=== PATIENT | female | born 1965 | race African-American/Black ===

== ENCOUNTER 2020-07-31 16:52 | Outpatient (REF) | payer MEDICAID, SELFPAY ==
[2020-07-31 18:05] LABS: MANUAL DIFF FLAG NO
[2020-07-31 18:06] LABS: Basophils Percent Auto 0.6 % (0-2); Eosinophils Absolute Auto 0.1 X10*3/uL (0.0-0.4); Eosinophils Percent Auto 1.1 % (0-4); Hematocrit 41.6 % (37-47); Hemoglobin 13.2 g/dl (12.0-16.0); Imm Gran Abs Auto 0.01 X10*3/uL (0.00-0.03); Imm Gran Pct Auto 0.2 % (0.0-0.4); Lymphocytes Absolute Auto 2.5 X10*3/uL (1.2-4.9); Mean Corpuscular HGB Conc 31.7 g/dl (31.0-35.0); Mean Corpuscular Hemoglobin 29.5 pg (27.0-33.0); Mean Corpuscular Volume 92.9 fL (80-98); Mean Platelet Volume 10.4 fL (9.4-12.3); Monocytes Absolute Auto 0.5 X10*3/uL (0.1-1.2); Monocytes Percent Auto 8.9 % (2-11); Neutrophils Absolute Auto 2.3 X10*3/uL (2.0-8.3); Neutrophils Percent Auto 42.2 % (45-73); Platelet Count 300 X10*3/uL (160-400); Red Blood Count 4.48 X10*6/uL (4.20-5.50); Red Cell Distribution Width 13.1 % (11.0-16.0); White Blood Count 5.4 X10*3/uL (4.8-10.8)
[2020-07-31 18:41] LABS: Alanine Aminotransferase 16 U/L (0-31); Albumin Level 4.4 g/dL (3.5-5.0); Alkaline Phosphatase 101 U/L (39-117); Anion Gap 12 (12-20); Aspartate Amino Transferase 18 U/L (5-31); Bilirubin Total 0.8 mg/dL (0.0-1.0); Blood Urea Nitrogen 12 mg/dL (9-16); Calcium 9.7 mg/dL (8.4-10.2); Carbon Dioxide 26 mmol/L (22-29); Chloride 105 mmol/L (96-108); Cholesterol 167 mg/dL; Estimated Glomerular Filt Rate > 60; Glucose Random 90 mg/dL (60-115); Potassium 4.3 mmol/L (3.3-5.1); Sodium 139 mmol/L (135-145); Total Protein 7.7 g/dL (6.5-8.0)
[2020-07-31 19:01] LABS: Free T4 (Free Thyroxine) 0.88 ng/dL (0.71-1.85); Thyroid Stimulating Hormone 1.37 uIU/mL (0.32-4.0)
== END 2020-07-31 16:53 | disposition home or self-care (01) ==
LOC: HO.LAB 16:52
PROVIDERS: PCP Internal Medicine; Visit Provider Internal Medicine
DX: R63.5 Abnormal weight gain (principal); E78.00 Pure hypercholesterolemia, unspecified; R30.0 Dysuria
CPT/HCPCS: 36415; 80053; 82465; 84439; 84443; 85025

== ENCOUNTER 2020-09-06 14:03 | Outpatient (REF) | payer MEDICAID, SELFPAY ==
--- NOTE | ~2020-09-06 | MM_ITS ---
EXAMINATION: BONE DENSITOMETRY CLINICAL INDICATION: Screening for osteoporosis. COMPARISON: This is the patient's baseline examination. TECHNIQUE: Using a [employer] DXA System (software version: 13.1) manufactured by [employer], dual-energy x-ray absorptiometry was performed of the lumbar spine and left hip. The images are of good technical quality. Summary results are attached. FINDINGS: AP SPINE L1-L4: BMD 1.141 g/cm2, Z-score -0.7, T-score -0.3, normal. LEFT FEMUR, NECK: BMD 1.133 g/cm2, Z-score 0.4, T-score 0.7, normal. LEFT FEMUR, TOTAL: BMD 1.321 g/cm2, Z-score 1.8, T-score 2.5, normal. IDENTIFIED RISK FACTORS: Early menopause, secondary osteoporosis. HISTORY OF FRACTURE: None listed. MEDICATIONS: Calcium supplements or multivitamin, vitamin D. MM/XR DEXA axial skeleton IMPRESSION: 1. DIAGNOSIS: Normal bone density based on the lowest T-score value of -0.3 in the lumbar spine applying World Health Organization criteria. 2. 10-YEAR FRACTURE RISK PREDICTION, FRAX: Major osteoporotic fracture (clinical spine, forearm, hip or shoulder) 2.2%. Hip fracture 0.0%. 3. Treatment Recommendations: NOF guidelines recommend consideration for treatment in postmenopausal women and men age 50 and older presenting with the following: -A hip or vertebral (clinical or morphometric) fracture. -T-score less than or equal to -2.5 at the femoral neck or spine after appropriate evaluation to exclude secondary causes. -Low bone mass at the hip or spine and a 10-year fracture probability by FRAX of greater than or equal to 3% for hip fracture or greater than or equal to 20% for major osteoporotic fracture based on the [place] adapted WHO algorithm. 4. Other Recommendations: All treatment decisions require clinical judgment and consideration of individual patient factors, including patient preferences, comorbidities, previous drug use, risk factors not captured in the FRAX model (e.g. frailty, falls, vitamin D deficiency, increased bone turnover, interval significant decline in bone density) and possible under or overestimation of fracture risk by FRAX. FUTURE SCAN RECOMMENDATION: People with diagnosed cases of osteoporosis or at high risk for fracture should have regular bone mineral density tests. For patients eligible for Medicare, routine testing is allowed once every 2 years. The testing frequency can be increased to one year for patients who have rapidly progressing disease, those who are receiving or discontinuing medical therapy to restore bone mass, or have additional risk factors.
--- NOTE | ~2020-09-06 | MM_ITS ---
EXAMINATION: MM BREAST SCREENING DIGITAL TOMOSYNTHESIS, BILATERAL CLINICAL INFORMATION: Screening. Asymptomatic. The lifetime risk of breast cancer based on the Tyrer-Cuzick Model is 4.1%. COMPARISON: Mammography: None TECHNIQUE: Digital breast tomosynthesis is performed in both the craniocaudal and mediolateral oblique views along with computer-aided detection (CAD). Synthesized 2D images are generated from the tomosynthesis. Left exaggerated craniocaudal view performed. FINDINGS: There are scattered areas of fibroglandular density (ACR BI-RADS breast composition Category b). No abnormal dominant masses or suspicious grouping of microcalcifications identified within the left breast. Within the right breast, there are noted to be 3 circumscribed densities upper outer aspect, 1 lying approximately 4 cm from the nipple measuring 8 mm in diameter, 1 measuring 8 mm in diameter approximately 9 cm from the nipple, and 1 likely representing intramammary lymph node measuring 6 mm approximately 10 cm from the nipple. Ultrasound evaluation is recommended. MM/MM tomosynthesis screening BI IMPRESSION: Three circumscribed densities about the upper outer aspect of the right breast for which targeted ultrasound evaluation is recommended. ASSESSMENT: BI-RADS 0: Incomplete - Need Additional Imaging Evaluation RECOMMENDATION: Right breast ultrasound This patient's information was entered into a reminder system with a target due date for their next mammogram.
== END 2020-09-06 14:04 | disposition home or self-care (01) ==
LOC: HO.MAMMO 14:03
PROVIDERS: Visit Provider Internal Medicine
DX: Z12.31 Encounter for screening mammogram for malignant neoplasm of breast (principal); M81.8 Other osteoporosis without current pathological fracture; N95.9 Unspecified menopausal and perimenopausal disorder
CPT/HCPCS: 77063; 77067; 77080

== ENCOUNTER 2020-09-12 13:42 | Outpatient (REF) | payer MEDICAID, SELFPAY ==
--- NOTE | ~2020-09-12 | US_ITS ---
EXAMINATION: US DIAGNOSTIC ULTRASOUND BREAST, RIGHT CLINICAL INFORMATION: Three right breast densities upper outer quadrant. COMPARISON: Mammography of 09/06/2020 TECHNIQUE: Ultrasound of the breast is performed with real-time basurto-scale imaging and color Doppler. FINDINGS: At the 9 o'clock position approximately 9 cm from the nipple, there is a 5 x 4 x 3 mm well-circumscribed hypoechoic lesion with a few regions of hyperechogenicity and some vascularity with the appearance of a probable lymph node. At the 10 o'clock position approximately 4 cm from the nipple, there is a simple-appearing cyst measuring approximately 8 x 7 x 5 mm in size. At the 11 o'clock position approximately 11 cm from nipple, there is a 7 x 7 x 6 mm lymph node. No definite suspicious lesions identified within the upper outer quadrant. Results are discussed with the patient at time of visit. US/US breast RT limited IMPRESSION: Right breast densities upper outer quadrant appear to represent 2 lymph nodes and a simple-appearing cyst. Recommend 12-month followup study to ensure stability. ASSESSMENT: BI-RADS 3: Probably Benign. RECOMMENDATION: Diagnostic mammography at time of next annual exam, due in 12 months. This patient's information was entered into a reminder system with a target due date for their next mammogram.
== END 2020-09-12 13:43 | disposition home or self-care (01) ==
LOC: HO.MAMMO 13:42
PROVIDERS: Visit Provider Internal Medicine
DX: R92.2 Inconclusive mammogram (principal)
CPT/HCPCS: 76642

== ENCOUNTER 2020-10-25 12:41 | Outpatient (REF) | payer MEDICAID, SELFPAY ==
[2020-10-25 16:49] LABS: CT PCR NOT DETECTED (Not Detect.); NG PCR NOT DETECTED (Not Detect.)
[2020-10-26 09:26] LABS: BV Int Neg Control Negative (Negative); BV Int Pos Control Positive (Positive)
[2020-10-27 18:06] LABS: HPV mRNA E6/E7 rflx Not Detected (Not Detected)
== END 2020-10-25 12:42 | disposition home or self-care (01) ==
LOC: HO.LAB 12:41
PROVIDERS: PCP Internal Medicine; Visit Provider Advanced Practice Midwife
DX: Z01.419 Encounter for gynecological examination (general) (routine) without abnormal findings (principal); N89.8 Other specified noninflammatory disorders of vagina; E66.01 Morbid (severe) obesity due to excess calories; Z20.2 Contact with and (suspected) exposure to infections with a predominantly sexual mode of transmission
CPT/HCPCS: 87480; 87491; 87510; 87591; 87624; 87660; 88142

== ENCOUNTER 2020-12-03 10:42 | Outpatient (REF) | payer MEDICAID, SELFPAY | END 2020-12-03 10:43 | disposition home or self-care (01) | LOC: HO.HMGCLDS 10:42 | PROVIDERS: Visit Provider Internal Medicine | DX: Z20.822 Contact with and (suspected) exposure to COVID-19 (principal) | CPT/HCPCS: C9803; U0003; U0005 ==

== ENCOUNTER 2020-12-26 13:36 | Outpatient (REF) | payer MEDICAID, SELFPAY ==
--- NOTE | ~2020-12-26 | CT_ITS ---
EXAMINATION: CT HEAD WITHOUT CONTRAST CLINICAL INFORMATION: New onset headache COMPARISON: None TECHNIQUE: Contiguous axial imaging was performed from the skull base to vertex without intravenous administration of contrast. This CT examination was performed using dose optimization techniques as appropriate, variously including the following: *Automated exposure control *Adjustment of mA and/or kV according to patient size (this includes techniques or standardized protocols for targeted exams where dose is matched to indication/reason for exam; i.e. extremities or head) *Use of iterative reconstruction technique DLP: 785 mGy-cm FINDINGS: There is no evidence of acute intracranial hemorrhage or territorial infarction. No abnormal mass effect or midline shift is seen. Vizcarra to white matter differentiation is well preserved. No extra-axial fluid collections are identified. The ventricles are normal in size. There is no abnormal attenuation within the brain parenchyma. The osseous structures and soft tissues are normal. The mastoid air cells and visualized portions of the paranasal sinuses are well aerated. CT/CT head/brain wo con IMPRESSION: No acute intracranial process seen.
== END 2020-12-26 13:37 | disposition home or self-care (01) ==
LOC: HO.CT 13:36
PROVIDERS: PCP Internal Medicine; Visit Provider Internal Medicine
DX: R51.0 Headache with orthostatic component, not elsewhere classified (principal); Z87.828 Personal history of other (healed) physical injury and trauma
CPT/HCPCS: 70450

== ENCOUNTER 2021-03-20 12:44 | Outpatient (REF) | payer MEDICAID, SELFPAY ==
--- NOTE | ~2021-03-20 | US_ITS ---
EXAMINATION: US DIAGNOSTIC ULTRASOUND BREAST, RIGHT CLINICAL INFORMATION: Short interval follow-up probable benign nodularity right breast noted at new baseline. COMPARISON: Mammography 09/06/2020, targeted right breast ultrasound 09/12/2020. TECHNIQUE: Ultrasound right breast is targeted to the upper and outer quadrants. Grayscale imaging and color Doppler are performed without and with harmonics. FINDINGS: There is no significant changes from prior targeted ultrasound. No suspicious mass or architectural abnormality. No focal duct ectasia. Nodule superficial 9:00 position 9 cm from nipple is stable in size and contour measuring under 1 cm. There is some central echogenicity with central color flow suggesting intramammary node. Probable cyst posterior mid outer right breast is visualized at 9:00 position, previously 10:00 position. This is under 1 cm and similar to prior ultrasound. There are 3 incidental intramammary nodes seen 11:00 position 11 cm from nipple with normal loida architecture, largest measuring 1.0 x 0.6 cm. There is a simple cyst 11:00 position 1 cm from nipple measuring 0.9 x 0.8 cm. This is anechoic with increased through-transmission of sound and no color flow. Results are provided to the patient at time of visit by the technologist. Management plan is for diagnostic mammography in 6 months at time of annual mammography. US/US breast RT limited IMPRESSION: No significant changes from prior targeted ultrasound. ASSESSMENT: BI-RADS 3: Probably Benign RECOMMENDATION: Diagnostic mammography at time of annual bilateral exam, due in 6 months. This patient's information was entered into a reminder system with a target due date for their next mammogram.
== END 2021-03-20 12:45 | disposition home or self-care (01) ==
LOC: HO.MAMMO 12:44
PROVIDERS: PCP Internal Medicine; Visit Provider Internal Medicine
DX: R92.2 Inconclusive mammogram (principal)
CPT/HCPCS: 76642

== ENCOUNTER 2021-06-05 14:36 | Outpatient (REF) | payer MEDICAID, SELFPAY ==
[2021-06-05 14:49] LABS: MANUAL DIFF FLAG NO
[2021-06-05 14:59] LABS: Basophils Percent Auto 0.5 % (0-2); Eosinophils Percent Auto 0.5 % (0-4); Hemoglobin 13.4 g/dl (12.0-16.0); Imm Gran Abs Auto 0.01 X10*3/uL (0.00-0.03); Imm Gran Pct Auto 0.2 % (0.0-0.4); Lymphocytes Absolute Auto 2.5 X10*3/uL (1.2-4.9); Lymphocytes Percent Auto 44.9 % (20-40); Mean Corpuscular HGB Conc 31.9 g/dl (31.0-35.0); Mean Corpuscular Hemoglobin 29.8 pg (27.0-33.0); Mean Corpuscular Volume 93.3 fL (80.0-98.0); Mean Platelet Volume 9.7 fL (9.4-12.3); Monocytes Absolute Auto 0.4 X10*3/uL (0.1-1.2); Monocytes Percent Auto 7.8 % (2-11); Neutrophils Absolute Auto 2.5 x10*3/uL (2.0-8.3); Neutrophils Percent Auto 46.1 % (45-73); Platelet Count 282 X10*3/uL (160-400); Red Cell Distribution Width 13.2 % (11.0-16.0); White Blood Count 5.5 X10*3/uL (4.8-10.8)
[2021-06-05 15:25] LABS: Alanine Aminotransferase 27 U/L (0-31); Albumin Level 4.6 g/dL (3.5-5.0); Alkaline Phosphatase 111 U/L (39-117); Anion Gap 10 (12-20); Aspartate Amino Transferase 26 U/L (5-31); Bilirubin Total 0.5 mg/dL (0.0-1.0); Blood Urea Nitrogen 12 mg/dL (9-16); Carbon Dioxide 29 mmol/L (22-29); Chloride 106 mmol/L (96-108); Estimated Glomerular Filt Rate 54; Glucose Random 89 mg/dL (60-115); Potassium 3.8 mmol/L (3.3-5.1); Sodium 141 mmol/L (135-145)
[2021-06-05 15:42] LABS: Appearance Urine CLEAR; Color Urine YELLOW; Glucose Urine UA NEG (NEG); Leukocyte Esterase Urine 1+ (NEG); Nitrite Urine NEG (NEG); PH 5.5 (5.0-8.0); Urine Blood TRACE (NEG); Urine Ketones NEG (NEG); Urine Protein NEG (NEG-TRACE)
[2021-06-05 15:49] LABS: Bacteria Urine 2+ /LPF
[2021-06-05 15:51] LABS: RBC Urine 0-2 /HPF (0)
== END 2021-06-05 14:37 | disposition home or self-care (01) ==
LOC: HO.LAB 14:36
PROVIDERS: PCP Internal Medicine; Visit Provider Internal Medicine
DX: K21.9 Gastro-esophageal reflux disease without esophagitis (principal); Z87.442 Personal history of urinary calculi
CPT/HCPCS: 36415; 80053; 81001; 85025

== ENCOUNTER 2021-07-03 16:12 | Outpatient (REF) | payer MEDICAID, SELFPAY ==
--- NOTE | ~2021-07-03 | US_ITS ---
EXAMINATION: US RETROPERITONEAL LIMITED (RENAL ONLY) CLINICAL INFORMATION: History of renal stones. COMPARISON: None TECHNIQUE: Real-time imaging of the kidneys. FINDINGS: RIGHT KIDNEY: 10.8 x 4.4 x 5.2 cm (SAG x AP x TRV). The kidney is normal in size, contour, and echogenicity. Renal cortical thickness is normal. No focal parenchymal lesions or hydronephrosis. There are numerous echogenic foci throughout the medullary regions consistent with small calculi. Within the midpole there are 2 large echogenic foci which may represent vascular interfaces or possible 5 mm and 6 mm calculi. LEFT KIDNEY: 12.3 x 6.0 x 5.0 cm (SAG x AP x TRV). The kidney is normal in size, contour, and echogenicity. Renal cortical thickness is normal. No focal parenchymal lesions or hydronephrosis. Numerous small medullary echogenic foci are seen which may be related to calculi or vascular interface. Within the midpole there is a 5 mm echogenic focus with some distal sound shadowing consistent with nonobstructing calculus. Within the lower pole there is an echogenic focus measuring approximately 6 mm in diameter which may represent a nonobstructing calculus. US/US renal BI IMPRESSION: Echogenic foci bilaterally consistent with nephrocalcinosis. No evidence of obstructive uropathy.
== END 2021-07-03 16:13 | disposition home or self-care (01) ==
LOC: HO.US 16:12
PROVIDERS: Visit Provider Internal Medicine
DX: Z87.442 Personal history of urinary calculi (principal)
CPT/HCPCS: 76775

== ENCOUNTER 2021-10-18 12:55 | Outpatient (REF) | payer MEDICAID, SELFPAY ==
--- NOTE | ~2021-10-18 | MM_ITS ---
EXAMINATION: MM DIAGNOSTIC DIGITAL BREAST TOMOSYNTHESIS, BILATERAL CLINICAL INFORMATION: Due for yearly. Follow-up probable benign nodularity right breast. The lifetime risk of breast cancer based on the Tyrer-Cuzick Model is 4%. COMPARISON: Mammography: 09/06/2020; ultrasound right breast 03/20/2021, 09/12/2020. TECHNIQUE: Digital breast tomosynthesis is performed in both the craniocaudal and mediolateral oblique views along with computer-aided detection (CAD). Synthesized 2D images are generated from the tomosynthesis. FINDINGS: There are scattered areas of fibroglandular density (ACR BI-RADS breast composition Category b). Parenchymal pattern is similar to prior studies. There is no developing density or interval mass or architectural abnormality. Benign-appearing nodular asymmetry central outer left breast on CC view and small circumscribed nodules mid upper outer right breast are stable. Small circumscribed nodule anterior outer right breast noted on prior study is decreased to resolved. There are no abnormal calcifications. The axilla and skin contours are unremarkable. Results are provided to the patient at time of visit by the technologist. MM/MM tomosynthesis diagnostic BI IMPRESSION: No mammographic evidence of malignancy. ASSESSMENT: BI-RADS 2: Benign RECOMMENDATION: Routine annual mammography screening. This patient's information was entered into a reminder system with a target due date for their next mammogram.
== END 2021-10-18 12:56 | disposition home or self-care (01) ==
LOC: HO.MAMMO 12:55
PROVIDERS: PCP Internal Medicine; Visit Provider Internal Medicine
DX: R92.8 Other abnormal and inconclusive findings on diagnostic imaging of breast (principal)
CPT/HCPCS: 77062; 77066

== ENCOUNTER 2022-03-19 11:30 | Outpatient (REF) | payer MEDICAID, SELFPAY ==
[2022-03-19 14:16] LABS: Syphilis Screen Nonreactive (Nonreactive)
[2022-03-19 17:12] LABS: CT PCR NOT DETECTED (Not Detect.); NG PCR NOT DETECTED (Not Detect.)
[2022-03-21 09:44] LABS: HBc Num1 0.12 S/CO (0.00-0.79); HIV AB/AG Nonreactive (Nonreactive); HIV Num 1 0.08 S/CO (0.00-0.99); Hepatitis B Core Antibody Nonreactive (Nonreactive); ~HepC Num1 0.11 S/CO (0.00-0.79); ~Hepatitis C Antibody Nonreactive (Nonreactive)
[2022-03-22 05:29] LABS: TS Negative Control Passed; TS Panel A 2; TS Panel B 0; TS Positive Control Passed; TSpotTB Negative (Negative)
== END 2022-03-19 11:31 | disposition home or self-care (01) ==
LOC: HO.LAB 11:30
PROVIDERS: Absent Provider Internal Medicine; PCP Internal Medicine; Visit Provider Advanced Practice Midwife
DX: Z02.1 Encounter for pre-employment examination (principal); Z11.1 Encounter for screening for respiratory tuberculosis; Z11.4 Encounter for screening for human immunodeficiency virus [HIV]; Z20.2 Contact with and (suspected) exposure to infections with a predominantly sexual mode of transmission
CPT/HCPCS: 0353U; 36415; 86481; 86704; 86780; 86803; 87389

== ENCOUNTER 2022-10-21 09:04 | Outpatient (REF) | payer OTHER, SELFPAY | END 2022-10-21 09:05 | disposition home or self-care (01) | LOC: HO.MAMMO 09:04 | PROVIDERS: PCP Internal Medicine; Visit Provider Internal Medicine | DX: Z12.31 Encounter for screening mammogram for malignant neoplasm of breast (principal) | CPT/HCPCS: 77063; 77067 ==

== ENCOUNTER → 2022-10-21 09:15 | Outpatient (BNV) | payer OTHER, SELFPAY | PROVIDERS: PCP Internal Medicine; Visit Provider Radiology Diagnostic Radiology | DX: Z12.31 Encounter for screening mammogram for malignant neoplasm of breast (principal) | CPT/HCPCS: 77063; 77067 ==

== ENCOUNTER 2023-01-14 14:03 | Outpatient (REF) | payer OTHER, SELFPAY ==
--- NOTE | ~2023-01-14 | US_ITS ---
EXAMINATION: US RETROPERITONEAL COMPLETE (RENAL) CLINICAL INFORMATION: Proteinuria. COMPARISON: Renal ultrasound 07/03/2021. TECHNIQUE: Real-time imaging of the kidneys and bladder. FINDINGS: RIGHT KIDNEY: 10.7 x 4.3 x 4.9 cm (SAG x AP x TRV). New focal wedge-shaped scarring in the upper pole. No focal parenchymal lesions or hydronephrosis. 10 mm nonobstructing calculus in the lower kidney. LEFT KIDNEY: 10.6 x 5.5 x 4.0 cm (SAG x AP x TRV). The kidney is normal in size, contour, and echogenicity. Renal cortical thickness is normal. No focal parenchymal lesions or hydronephrosis. Numerous nonobstructing calculi, largest measuring 7 mm in the lower pole. BLADDER: Well distended and normal. Bilateral ureteral jets are demonstrated. Prevoid bladder volume is 221.2 mL. Postvoid bladder volume is 14.4 mL. US/US retroperitoneal comp IMPRESSION: New focal wedge-shaped scarring in the upper pole of the right kidney may relate to sequela of renal infarct/infection/stone disease. Correlate clinically for history of partial nephrectomy. Nonobstructing bilateral renal calculi.
== END 2023-01-14 14:04 | disposition home or self-care (01) ==
LOC: HO.US 14:03
PROVIDERS: PCP Internal Medicine; Visit Provider Internal Medicine
DX: R80.9 Proteinuria, unspecified (principal)
CPT/HCPCS: 76770

== ENCOUNTER 2023-05-25 15:36 | Outpatient (REF) | payer OTHER, SELFPAY | END 2023-05-25 15:37 | disposition home or self-care (01) | LOC: HO.LAB 15:36 | PROVIDERS: PCP Internal Medicine; Visit Provider Urology | DX: N20.0 Calculus of kidney (principal); N39.0 Urinary tract infection, site not specified | CPT/HCPCS: 81003; 99202 ==

== ENCOUNTER 2023-05-25 15:36 | Outpatient (AMB) | payer OTHER, SELFPAY ==
--- NOTE | 2023-05-25 15:47 | A.OFFVIS_ITS ---
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 She states she had lithotripsy done several years ago about 1994. She does get occasional kidney discomfort denies blood in the urine. She has had urinary infections in the past but denies dysuria at this time. I reviewed with the patient kidney ultrasound that resulted January 2023. Bilateral kidney stones and right renal scarring. I have discussed further evaluation with CT abdomen/pelvis without IV contrast. I have discussed at length diet modification to decrease risk of forming more kidney stones. I have discussed low oxalate diet and specific foods to avoid including certain green leafy vegetables, chocalate, nuts, tea, beets, rubarb; low sodium, decreased use of animal protein and the importance of hydration drinking up to 2-2.5 liters of fluids and use of adding lemon to water to increase citrate in the diet. A pamphlet is also provided today. I will start her on vitamin B6 100 mg daily. Urinalysis--2+ leukocytes 1+ blood, urine culture sent. [facility] Medical History Breast density Surgical History H/O lithotripsy Social History Alcohol intake: never Patient Tobacco Use Status: Never used Tobacco Female Reproductive History Menstrual Age of Menarche: 10 Review of Systems Const All systems reviewed & are unremarkable except as noted in HPI and below Reports no additional complaints Eyes Reports no additional complaints ENT Reports no additional complaints Card Denies dyspnea Resp Denies cough and Denies dyspnea GI Reports no additional complaints Reports no additional complaints Musc Reports no additional complaints Skin/Breast Denies rash and Denies unusual bruising Neuro Reports no additional complaints Psych Reports no additional complaints Endo Reports no additional complaints Roshan/Lymph Reports no additional complaints Aller/Immun Reports no additional complaints Physical Exam Const General: cooperative, healthy appearing and no acute distress Orientation/consciousness: patient oriented x3 HEENT Head: Yes normal to inspection, Yes normocephalic and Yes atraumatic Eyes Conjunctivae: conjunctivae normal Neck Neck: Yes normal visual inspection and Yes trachea midline Chest Chest palpation & inspection: normal inspection of the chest Resp Effort & Inspection: normal respiratory effort Cardio Rate: regular rate GI Inspection: Yes normal to inspection Skin General skin exam: no rashes or lesions noted Neuro General: patient oriented x3 Extrem General: No edema Psych Appearance: grossly normal Results AMB Urinalysis, Automated UA Leukoctes 125 Anya/uL Last Edit by Magui Richardsjosefina Richards [facility] on 05/25/23 1 5:56 UA Nitrite Negative Last Edit by [facility] on 05/25/23 15: 56 UA Urobilinogen 0.2 mg/dL Last Edit [facility] on 4 15:56 UA Protein 0 mg/dL Last Edit by [facility] Richards, [facility] on 05/25/23 15:56 UA pH 7.0 Last Edit by [facility] on 05/25/23 15:56 UA Blood 25 Medardo/uL Last Edit by [facility] Richards [facility] on 05/25/23 15:56 UA Specific [place] 1.010 Last Edit by [facility] Richards [facility] on 15:56 UA Ketone Negative Last Edit by [facility] on 05/25/23 15:5 6 UA Bilirubin 0 mg/dL Last Edit by [facility] Richards, [facility] on 05/25/23 15: 56 UA Glucose 0 mg/dL Last Edit by [facility] Richards [facility] on 05/25/23 15:56 Results Reviewed Results Reviewed: Laboratory Last Values Urine pH (Auto) 7.0 05/25/23 15:55 Specific [place] (Auto) 1.010 05/25/23 15:55 Urine Protein (Auto) 0 mg/dL 05/25/23 15:55 Glucose (UA)(Auto) 0 mg/dL 05/25/23 15:55 Urine Ketones (Auto) Negative 05/25/23 15:55 Urine Blood (Auto) 25 Medardo/uL 05/25/23 15:55 Urine Nitrite (Auto) Negative 05/25/23 15:55 Urine Bilirubin (Auto) 0 mg/dL 05/25/23 15:55 Urine Urobilinogen (Auto) 0.2 mg/dL 05/25/23 15:55 Leukocyte Esterase (Auto) 125 Anya/uL 05/25/23 15:55 Assessment & Plan Assessment & Plan (1) UTI (urinary tract infection): Code(s): N39.0 - Urinary tract infection, site not specified Plan CT abdomen and pelvis without IV contrast. Diet discussed to reduce kidney stone Vitamin B6 100 mg daily Orders: Orders AMB Urinalysis Automated Today R33.9 - Retention of urine, unspecified CT abdomen pelvis wo IV con Today N20.0 - Calculus of kidney, N28.89 - Other specified disorders of kidney and ureter Urine Culture Today N39.0 - Urinary tract infection, site not specified Medications: New pyridoxine (vitamin B6) 100 mg PO DAILY 90 days 90 tabs 1RF Patient Instructions: The patient had an opportunity to ask questions regarding treatment plan. All questions were answered. Imaging, Laboratory studies and physical exam results were discussed and reviewed in detail. No major barriers to understanding were identified. The patient expressed understanding and agreement with the above treatment plan. The patient is aware they should contact our office by phone for worsening of their current condition or the appearance of new symptoms. Compliance is encouraged with any medications and followup testing that is ordered. It is a privilege to be allowed the opportunity to participate in the urologic care of your patient. If you have any questions or concerns regarding treatment for the above conditions please do not hesitate to contact me. The office telephone contact is [phone]. This note is constructed in part using voice recognition software. 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 Yours sincerely, Edgar Soto MD Coding Level of Care Code New Pt Level 4 (52402) Diagnoses UTI (urinary tract infection) N39.0
== END 2023-05-25 16:19 | disposition home or self-care (01) ==
PROVIDERS: PCP Internal Medicine; Visit Provider Urology
DX: N39.0 Urinary tract infection, site not specified (principal); R33.9 Retention of urine, unspecified
CPT/HCPCS: 99204

== ENCOUNTER 2023-05-26 11:05 | Outpatient (REF) | payer OTHER, SELFPAY | END 2023-05-26 11:06 | disposition home or self-care (01) | LOC: HO.LAB 11:05 | PROVIDERS: Visit Provider Urology | DX: N39.0 Urinary tract infection, site not specified (principal) | CPT/HCPCS: 87086 ==

== ENCOUNTER 2023-08-05 16:25 | Outpatient (REF) | payer OTHER, SELFPAY ==
--- NOTE | ~2023-08-05 | CT_ITS ---
EXAMINATION: CT ABDOMEN AND PELVIS WITHOUT CONTRAST CLINICAL INFORMATION: Renal calculus. COMPARISON: Renal ultrasound dated 01/14/2023. TECHNIQUE: Multidetector volumetric imaging was performed from the superior aspect of the liver through the pubic symphysis. Sagittal and coronal reformatted images were obtained on the technologist's workstation. This CT examination was performed using dose optimization techniques as appropriate, variously including the following: *Automated exposure control *Adjustment of mA and/or kV according to patient size (this includes techniques or standardized protocols for targeted exams where dose is matched to indication/reason for exam; i.e. extremities or head) *Use of iterative reconstruction technique DLP: 551 mGy-cm FINDINGS: LUNG BASES: The visualized lung bases are unremarkable. LIVER, GALLBLADDER, AND BILIARY TREE: The liver is normal in size, shape, and attenuation. 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 No focal hepatic lesion or biliary ductal dilatation is present. The gallbladder is unremarkable with no evidence of radiopaque gallstones, gallbladder wall thickening, or obvious pericholecystic inflammatory changes. PANCREAS: Unremarkable. SPLEEN: Unremarkable. ADRENAL GLANDS: Unremarkable. KIDNEYS AND URETERS: The kidneys are normal in size, shape, and attenuation. 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 There are extensive bilateral renal calculi. The largest on the right include a 5 mm interpolar calculus and an 8 mm lower pole calculus (5:78). The larger calculi within the left kidney are situated at the upper pole measuring 1.1 cm and at the lower pole measuring 0.9 cm (5:93 and 76). No ureteric calculus is seen, and there is no bilateral hydronephroureter. There is no significant perinephric stranding. BLADDER: Unremarkable. GASTROINTESTINAL TRACT: There is mild diverticulosis, without acute diverticulitis. No bowel obstruction, free intraperitoneal air or abscess is seen. There is no focal bowel wall thickening. The vermiform appendix appears normal. ABDOMINAL WALL: There is a small fat-containing umbilical hernia. A small fat-containing left inguinal hernia is seen. LYMPH NODES: Normal. VASCULAR: Unremarkable. PELVIC VISCERA: The uterus and adnexa are unremarkable. OSSEOUS STRUCTURES: Unremarkable. CT/CT abdomen pelvis wo IV con IMPRESSION: 1. There are extensive bilateral renal calculi, as detailed. No ureteric calculus or obstructive uropathy is seen bilaterally. 2. There is mild diverticulosis, without diverticulitis. 3. There are small fat-containing umbilical and left inguinal hernias. 4. Osseous structures are unremarkable. Fleischner guidelines were followed.
== END 2023-08-05 16:26 | disposition home or self-care (01) ==
LOC: HO.CT 16:25
PROVIDERS: PCP Internal Medicine; Visit Provider Urology
DX: N20.0 Calculus of kidney (principal); N28.89 Other specified disorders of kidney and ureter
CPT/HCPCS: 74176

== ENCOUNTER 2023-09-03 14:20 | Outpatient (AMB) | payer OTHER, SELFPAY ==
--- NOTE | 2023-09-03 14:14 | MHC.OFFVIS ---
Intake Visit Reasons: 7w/CT Intake Note: Patient is present for 7week f/u Urology Medication:nitrofurantion monohyd/m-cryst,pryridoxine Antibiotic Allergy:none Blood Thinner:none Digital Camera Technician Required: No Allergies No Known Allergies Allergy (Verified 09/03/23 14:19) Medication List - Last Reconciled 09/03/23 by Edgar Soto MD calcium carbonate (Calcium 500) 500 mg PO DAILY pantoprazole 40 mg PO DAILY pyridoxine (vitamin B6) 100 mg PO DAILY 90 days HPI Comments Details: 09/03/23--I have reviewed the CT abdomen and pelvis without contrast dated 08/05/2023 the images were reviewed with the patient. There are multiple bilateral kidney stones largest in the left lower pole. There is scarring of the right kidney. The patient denies renal colic or gross hematuria. I have discussed further evaluation with 24 hour urine collection. Discussed treatment management lithotripsy versus conservative monitoring of the kidneys. Review of chart: 05/25/23--Carolyn is a 58-year-old female who is here as a new patient evaluation for kidney stones. She states she had lithotripsy done several years ago about 1994. She does get occasional kidney discomfort denies blood in the urine. She has had urinary infections in the past but denies dysuria at this time. I reviewed with the patient kidney ultrasound that resulted January 2023. Bilateral kidney stones and right renal scarring. I have discussed further evaluation with CT abdomen/pelvis without IV contrast. I have discussed at length diet modification to decrease risk of forming more kidney stones. I have discussed low oxalate diet and specific foods to avoid including certain green leafy vegetables, chocalate, nuts, tea, beets, rubarb; low sodium, decreased use of animal protein and the importance of hydration drinking up to 2-2.5 liters of fluids and use of adding lemon to water to increase citrate in the diet. A pamphlet is also provided today. I will start her on vitamin B6 100 mg daily. Urinalysis--2+ leukocytes 1+ blood, urine culture sent. [facility] Medical History Breast density Surgical History H/O lithotripsy Social History Alcohol intake: never Patient Tobacco Use Status: Never used Tobacco Female Reproductive History Menstrual Age of Menarche: 10 Review of Systems Const All systems reviewed & are unremarkable except as noted in HPI and below Reports no additional complaints Eyes Reports no additional complaints ENT Reports no additional complaints Card Reports no additional complaints Resp Reports no additional complaints GI Reports no additional complaints Reports as per HPI Musc Reports no additional complaints Skin/Breast Reports system reviewed and no additional complaints, except as documented Neuro Reports no additional complaints Psych Reports no additional complaints Endo Reports no additional complaints Roshan/Lymph Reports no additional complaints Aller/Immun Reports no additional complaints Telehealth Telehealth Telehealth Platform: Tagged Location of provider rendering services: practice address Location of patient: address on file Patient Identification confirmed using: Name, : Yes Telehealth method: video Patient verbally consented to treatment: Yes Patient verbally consented to billing insurance company: Yes Patient informed of any privacy concerns related to visit: Yes Results Reviewed Results Reviewed: Reviewed films CT abdomen and pelvis 08/05/23. Official helmet hat sweatband puncher is still pending. Assessment & Plan Assessment & Plan (1) Renal scarring: Code(s): N28.89 - Other specified disorders of kidney and ureter Category: Medical (2) Bilateral kidney stones: Code(s): N20.0 - Calculus of kidney Category: Medical Plan I have discussed further evaluation with 24 hour urine collection. Discussed treatment management lithotripsy versus conservative monitoring of the kidneys. Patient Instructions: The patient had an opportunity to ask questions regarding treatment plan. The patient expressed understanding and agreement with the above treatment plan. The patient is aware they should contact our office by phone for worsening of their current condition or the appearance of new symptoms. Compliance is encouraged with any medications and followup testing that is ordered. It is a privilege to be allowed the opportunity to participate in the urologic care of your patient. If you have any questions or concerns regarding treatment for the above conditions please do not hesitate to contact me. The office telephone contact is [phone]. This note is constructed in part using voice recognition software. While every effort has been made to ensure accuracy helmet hat sweatband puncher errors may have been included. Yours sincerely, Edgar Soto MD Coding Level of Care Code Tele Est Pt Level 4 (75297) Diagnoses Renal scarring N28.89 Bilateral kidney stones N20.0
== END 2023-09-03 16:25 | disposition home or self-care (01) ==
LOC: HO.HUSH 14:20
PROVIDERS: PCP Internal Medicine; Visit Provider Urology
DX: N28.89 Other specified disorders of kidney and ureter (principal); N20.0 Calculus of kidney
CPT/HCPCS: 99214

== ENCOUNTER → 2023-09-03 14:20 | Outpatient (BNVA) | payer OTHER, SELFPAY | PROVIDERS: PCP Internal Medicine; Visit Provider Urology ==

== ENCOUNTER 2023-10-26 09:18 | Outpatient (REF) | payer OTHER, SELFPAY ==
--- NOTE | ~2023-10-26 | MM_ITS ---
EXAMINATION: MM SCREENING DIGITAL BREAST TOMOSYNTHESIS, BILATERAL CLINICAL INFORMATION: Screening. Asymptomatic. COMPARISON: Mammography: This study is compared with prior exams dating back to 2021. TECHNIQUE: Digital breast tomosynthesis is performed in both the craniocaudal and mediolateral oblique views along with computer-aided detection (CAD). Synthesized 2D images are generated from the tomosynthesis. FINDINGS: There are scattered areas of fibroglandular density (ACR BI-RADS breast composition Category b). There are no significant masses, abnormal calcifications, or other abnormalities. MM/MM tomosynthesis screening BI IMPRESSION: No mammographic evidence of malignancy. ASSESSMENT: BI-RADS BI-RADS 1 - Negative RECOMMENDATION: Routine annual mammography screening. 1 year F/U This examination should not preclude the clinical evaluation of a suspicious palpable abnormality. This patient's information was entered into a reminder system with a target due date for their next mammogram. Electronically signed by: Renetta Santos MD 11/23/2023 09:51 AM EDT
== END 2023-10-26 09:19 | disposition home or self-care (01) ==
LOC: HO.MAMMO 09:18
PROVIDERS: Visit Provider Internal Medicine
DX: Z12.31 Encounter for screening mammogram for malignant neoplasm of breast (principal)
CPT/HCPCS: 77063; 77067

== ENCOUNTER → 2023-10-26 09:30 | Outpatient (BNV) | payer OTHER, SELFPAY | PROVIDERS: Visit Provider Radiology Diagnostic Radiology | DX: Z12.31 Encounter for screening mammogram for malignant neoplasm of breast (principal) | CPT/HCPCS: 77063; 77067 ==

== ENCOUNTER 2023-12-17 09:10 | Outpatient (AMB) | payer OTHER, SELFPAY ==
--- NOTE | 2023-12-17 09:54 | MHC.OFFVIS ---
Intake Visit Reasons: FOLLOW UP Intake Note: Patient is present for F/U Urology Medication:VITAMIN B6 Antibiotic Allergy:NONE Blood Thinner:NONE Personal Care Aide Required: No Allergies No Known Allergies Allergy (Verified 01/16/24 11:35) HPI Comments Details: 12/17/23--Carolyn is a 58-year-old female who is here for follow up for kidney stones. She does get occasional kidney discomfort denies blood in the urine. She states she had lithotripsy done several years ago about 1994. She has had urinary infections in the past but denies dysuria at this time. Discussed further evaluation - 24 hr urine. Review of chart: 09/03/23--I have reviewed the CT abdomen and pelvis without contrast dated 08/05/2023 the images were reviewed with the patient. There are multiple bilateral kidney stones largest in the left lower pole. There is scarring of the right kidney. The patient denies renal colic or gross hematuria. I have discussed further evaluation with 24 hour urine collection. Discussed treatment management lithotripsy versus conservative monitoring of the kidneys. 05/25/23--Carolyn is a 58-year-old female who is here as a new patient evaluation for kidney stones. She states she had lithotripsy done several years ago about 1994. She does get occasional kidney discomfort denies blood in the urine. She has had urinary infections in the past but denies dysuria at this time. I reviewed with the patient kidney ultrasound that resulted January 2023. Bilateral kidney stones and right renal scarring. I have discussed further evaluation with CT abdomen/pelvis without IV contrast. I have discussed at length diet modification to decrease risk of forming more kidney stones. I have discussed low oxalate diet and specific foods to avoid including certain green leafy vegetables, chocalate, nuts, tea, beets, rubarb; low sodium, decreased use of animal protein and the importance of hydration drinking up to 2-2.5 liters of fluids and use of adding lemon to water to increase citrate in the diet. A pamphlet is also provided today. I will start her on vitamin B6 100 mg daily. Urinalysis--2+ leukocytes 1+ blood, urine culture sent. [facility] Medical History Breast density Surgical History H/O lithotripsy Social History Alcohol intake: never Patient Tobacco Use Status: Never used Tobacco Advance Directives: No Advance Directives Information Provided: Yes Female Reproductive History Menstrual Age of Menarche: 10 Results AMB Urinalysis, Automated UA Leukoctes 500 Anya/uL Last Edit by JOSE Gonzalez on 12/17/23 10:26 UA Nitrite Positive Last Edit by JOSE Gonzalez on 12/17/23 10:26 UA Urobilinogen 0.2 mg/dL Last Edit by JOSE Gonzalez on 12/17/23 10:26 UA Protein 15 mg/dL Last Edit by JOSE Gonzalez on 12/17/23 10:26 UA pH 6.0 Last Edit by JOSE Gonzalez on 12/17/23 10:26 UA Blood 25 Medardo/uL Last Edit by JOSE Gonzalez on 12/17/23 10:26 UA Specific Accord 1.015 Last Edit by JOSE Gonzalez on 12/17/23 10:26 UA Ketone Negative Last Edit by JOSE Gonzalez on 12/17/23 10:26 UA Bilirubin 0 mg/dL Last Edit by JOSE Gonzalez on 12/17/23 10:26 UA Glucose 0 mg/dL Last Edit by JOSE Gonzalez on 12/17/23 10:26 Results Reviewed Results Reviewed: Laboratory Last Values Urine pH (Auto) 6.0 12/17/23 10: Specific Accord (Auto) 1.015 12/17/23 10:26 Urine Protein (Auto) 15 mg/dL 12/17/23 10: Glucose (UA)(Auto) 0 mg/dL 12/17/23 10: Urine Ketones (Auto) Negative 12/17/23 10: Urine Blood (Auto) 25 Medardo/uL 12/17/23 10: Urine Nitrite (Auto) Positive 12/17/23 10: Urine Bilirubin (Auto) 0 mg/dL 12/17/23 10: Urine Urobilinogen (Auto) 0.2 mg/dL 12/17/23 10:26 Leukocyte Esterase (Auto) 500 Anya/uL 12/17/23 10:26 Date of Service: 08/05/23 CT ABDOMEN AND PELVIS WITHOUT CONTRAST CLINICAL INFORMATION: Renal calculus. COMPARISON: Renal ultrasound dated 01/14/2023. TECHNIQUE: Multidetector volumetric imaging was performed from the superior aspect of the liver through the pubic symphysis. Sagittal and coronal reformatted images were obtained on the technologist's workstation. This CT examination was performed using dose optimization techniques as appropriate, variously including the following: *Automated exposure control *Adjustment of mA and/or kV according to patient size (this includes techniques or standardized protocols for targeted exams where dose is matched to indication/reason for exam; i.e. extremities or head) *Use of iterative reconstruction technique DLP: 551 mGy-cm FINDINGS: LUNG BASES: The visualized lung bases are unremarkable. LIVER, GALLBLADDER, AND BILIARY TREE: The liver is normal in size, shape, and attenuation. 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 No focal hepatic lesion or biliary ductal dilatation is present. The gallbladder is unremarkable with no evidence of radiopaque gallstones, gallbladder wall thickening, or obvious pericholecystic inflammatory changes. PANCREAS: Unremarkable. SPLEEN: Unremarkable. ADRENAL GLANDS: Unremarkable. KIDNEYS AND URETERS: The kidneys are normal in size, shape, and attenuation. 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 There are extensive bilateral renal calculi. The largest on the right include a 5 mm interpolar calculus and an 8 mm lower pole calculus (5:78). The larger calculi within the left kidney are situated at the upper pole measuring 1.1 cm and at the lower pole measuring 0.9 cm (5:93 and 76). No ureteric calculus is seen, and there is no bilateral hydronephroureter. There is no significant perinephric stranding. BLADDER: Unremarkable. GASTROINTESTINAL TRACT: There is mild diverticulosis, without acute diverticulitis. No bowel obstruction, free intraperitoneal air or abscess is seen. There is no focal bowel wall thickening. The vermiform appendix appears normal. ABDOMINAL WALL: There is a small fat-containing umbilical hernia. A small fat-containing left inguinal hernia is seen. LYMPH NODES: Normal. VASCULAR: Unremarkable. PELVIC VISCERA: The uterus and adnexa are unremarkable. OSSEOUS STRUCTURES: Unremarkable. IMPRESSION: 1. There are extensive bilateral renal calculi, as detailed. No ureteric calculus or obstructive uropathy is seen bilaterally. 2. There is mild diverticulosis, without diverticulitis. 3. There are small fat-containing umbilical and left inguinal hernias. Assessment & Plan Assessment & Plan (1) Renal scarring: Code(s): N28.89 - Other specified disorders of kidney and ureter Category: Medical (2) Bilateral kidney stones: Code(s): N20.0 - Calculus of kidney Category: Medical Plan I have discussed further evaluation with 24 hour urine collection. Orders: Orders AMB Urinalysis Automated 12/17/23 Z13.9 - Encounter for screening, unspecified Patient Instructions: The patient had an opportunity to ask questions regarding treatment plan. The patient expressed understanding and agreement with the above treatment plan. The patient is aware they should contact our office by phone for worsening of their current condition or the appearance of new symptoms. Compliance is encouraged with any medications and followup testing that is ordered. It is a privilege to be allowed the opportunity to participate in the urologic care of your patient. If you have any questions or concerns regarding treatment for the above conditions please do not hesitate to contact me. The office telephone contact is [phone]. This note is constructed in part using voice recognition software. While every effort has been made to ensure accuracy workers compensation claims supervisor errors may have been included. Yours sincerely, Edgar Soto MD Coding Level of Care Code Est Pt Level 3 (01917) Diagnoses Renal scarring N28.89 Bilateral kidney stones N20.0
== END 2023-12-17 10:57 | disposition home or self-care (01) ==
PROVIDERS: PCP Internal Medicine; Visit Provider Urology
DX: N28.89 Other specified disorders of kidney and ureter (principal); N20.0 Calculus of kidney
CPT/HCPCS: 99213

== ENCOUNTER → 2023-12-17 09:10 | Outpatient (BNVA) | payer OTHER, SELFPAY | PROVIDERS: PCP Internal Medicine; Visit Provider Urology | DX: N20.0 Calculus of kidney (principal) | CPT/HCPCS: 81003; 99212 ==

== ENCOUNTER 2024-01-16 11:23 | Emergency (ER) | payer OTHER, SELFPAY ==
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
[2024-01-16 11:33] VITALS: BP 185/80; PULSE 85; RESP 20; TEMP 36.8; O2SAT 99; BMI 47.5
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
[2024-01-16 12:53] LABS: MANUAL DIFF FLAG NO
[2024-01-16 13:04] LABS: Basophils Percent Auto 0.5 % (0-2); Eosinophils Absolute Auto 0.1 X10*3/uL (0.0-0.4); Eosinophils Percent Auto 1.3 % (0-4); Hematocrit 43.4 % (37.0-47.0); Hemoglobin 14.2 g/dl (12.0-16.0); Imm Gran Abs Auto 0.01 X10*3/uL (0.00-0.03); Imm Gran Pct Auto 0.2 % (0.0-0.4); Lymphocytes Absolute Auto 2.3 X10*3/uL (1.2-4.9); Mean Corpuscular HGB Conc 32.7 g/dl (31.0-35.0); Mean Corpuscular Hemoglobin 29.9 pg (27.0-33.0); Mean Corpuscular Volume 91.4 fL (80.0-98.0); Mean Platelet Volume 10.3 fL (9.4-12.3); Monocytes Absolute Auto 0.4 X10*3/uL (0.1-1.2); Monocytes Percent Auto 6.7 % (2-11); Neutrophils Absolute Auto 3.1 x10*3/uL (2.0-8.3); Neutrophils Percent Auto 52.3 % (45-73); Platelet Count 295 X10*3/uL (160-400); Red Blood Count 4.75 X10*6/uL (4.20-5.50); Red Cell Distribution Width 13.1 % (11.0-16.0)
[2024-01-16 13:08] LABS: Alanine Aminotransferase 25 U/L (0-31); Albumin Level 4.5 g/dL (3.5-5.0); Alkaline Phosphatase 103 U/L (39-117); Anion Gap 15 (12-20); Aspartate Amino Transferase 35 U/L (5-31); Bilirubin Total 0.7 mg/dL (0.0-1.0); Blood Urea Nitrogen 13 mg/dL (9-16); Calcium 9.7 mg/dL (8.4-10.2); Carbon Dioxide 24 mmol/L (22-29); Chloride 108 mmol/L (96-108); Estimated Glomerular Filt Rate > 60; Glucose Random 97 mg/dL (60-115); Potassium 3.9 mmol/L (3.3-5.1); Sodium 143 mmol/L (135-145); Total Protein 8.7 g/dL (6.5-8.0)
[2024-01-16] MEDS: iohexoL 350 MG/ML 75 ML INFUS..BTL 85 ML IV (13:33)
[2024-01-16 16:02] VITALS: BP 184/79; PULSE 71; RESP 12; TEMP 37.1; O2SAT 99
== END 2024-01-16 16:11 | disposition home or self-care (01) ==
PROVIDERS: Physician Assistant; Emergency Provider Emergency Medicine; PCP Internal Medicine
DX: S06.0X0A Concussion without loss of consciousness, initial encounter (principal); S13.4XXA Sprain of ligaments of cervical spine, initial encounter; V47.0XXA Car driver injured in collision with fixed or stationary object in nontraffic accident, initial encounter; R07.89 Other chest pain; R10.9 Unspecified abdominal pain; N20.0 Calculus of kidney; Y93.89 Activity, other specified; Y92.410 Unspecified street and highway as the place of occurrence of the external cause; Y99.9 Unspecified external cause status
CPT/HCPCS: 36415; 70450; 71260; 72125; 74177; 80053; 85025; 99283; 99284; Q9967

== ENCOUNTER 2024-04-19 15:28 | Inpatient (IN) | payer OTHER, SELFPAY ==
--- NOTE | ~2024-04-19 | FL_ITS ---
EXAMINATION: FL GUIDANCE ONLY HISTORY: Right ureteral stone COMPARISON: Correlation is made with a CT of the abdomen and pelvis dated 04/20/2024. TECHNIQUE: Fluoroscopy time: 13.1 seconds. Cumulative Dose: 5.8 mGy. Images: 2. FINDINGS: Images demonstrate placement of a right nephroureteral stent. FL/FL guidance in OR IMPRESSION: Fluoroscopy during procedure. Please see procedure report for additional information. Electronically signed by: Asa Alonso MD 04/21/2024 07:03 AM [facility]
--- NOTE | ~2024-04-19 | CT_ITS ---
CLINICAL HISTORY: R flank pain, RUQ RLQ TTP CT abdomen and pelvis with contrast Comparison: CT/SR - CT ABDOMEN PELVIS W IV CON - 01/16/24 13:22 EST Findings: Small hiatal hernia. Hepatomegaly with steatosis. Obstructive 6 mm distal right ureteric calculus with moderate upstream hydroureteronephrosis. Right renal parenchymal edema with delayed nephrograms and perinephric stranding. Similar-appearing parenchymal defect in the right upper and midpole kidney. Innumerable bilateral subcentimeter renal calculi largest in the left upper pole measuring 9 mm. No hydronephrosis on the left. No bowel obstruction, pneumoperitoneum, or pneumatosis. Scattered colonic diverticulosis without diverticulitis or colitis. Normal appendix. Circumferential bladder wall thickening. No acute fracture. IMPRESSION: 1. Obstructive 6 mm distal right ureteric calculus with moderate upstream hydroureteronephrosis. 2. Circumferential bladder wall thickening may be related to degree of underdistention or mild cystitis. This document has been electronically signed by: Manuel Puentes MD on 04/20/2024 03:38:59
[2024-04-19 16:40] VITALS: BP 134/71; PULSE 129; RESP 20; TEMP 39.6; O2SAT 99; BMI 54.9
[2024-04-19] MEDS: Acetaminophen 325 MG TABLET 975 MG PO (16:46)
[2024-04-19 17:21] LABS: MANUAL DIFF FLAG NO
[2024-04-19 17:22] LABS: Basophils Percent Auto 0.2 % (0-2); Hematocrit 39.8 % (37.0-47.0); Hemoglobin 13.2 g/dl (12.0-16.0); Imm Gran Abs Auto 0.07 X10*3/uL (0.00-0.03); Imm Gran Pct Auto 0.5 % (0.0-0.4); Lymphocytes Absolute Auto 1.2 X10*3/uL (1.2-4.9); Lymphocytes Percent Auto 8.4 % (20-40); Mean Corpuscular HGB Conc 33.2 g/dl (31.0-35.0); Mean Corpuscular Volume 90.5 fL (80.0-98.0); Mean Platelet Volume 9.5 fL (9.4-12.3); Monocytes Absolute Auto 1.2 X10*3/uL (0.1-1.2); Monocytes Percent Auto 8.8 % (2-11); Neutrophils Absolute Auto 11.3 x10*3/uL (2.0-8.3); Neutrophils Percent Auto 82.1 % (45-73); Platelet Count 233 X10*3/uL (160-400); Red Cell Distribution Width 13.5 % (11.0-16.0); White Blood Count 13.7 X10*3/uL (4.8-10.8)
[2024-04-19 17:37] LABS: Alanine Aminotransferase 66 U/L (0-31); Albumin Level 4.2 g/dL (3.5-5.0); Alkaline Phosphatase 101 U/L (39-117); Anion Gap 14 (12-20); Aspartate Amino Transferase 59 U/L (5-31); Bilirubin Total 2.3 mg/dL (0.0-1.0); Blood Urea Nitrogen 12 mg/dL (9-16); Calcium 8.9 mg/dL (8.4-10.2); Carbon Dioxide 21 mmol/L (22-29); Chloride 105 mmol/L (96-108); Estimated Glomerular Filt Rate 59; Glucose Random 132 mg/dL (60-115); Potassium 3.6 mmol/L (3.3-5.1); Sodium 136 mmol/L (135-145); Total Protein 8.4 g/dL (6.5-8.0)
[2024-04-19 17:59] LABS: Influenza A PCR NEGATIVE (Negative); Influenza B PCR NEGATIVE (Negative); Resp Syncy Virus RNA Qual PCR NEGATIVE (Negative); SARS COV2 PCR INHOUSE NEGATIVE (Negative)
[2024-04-19 19:54] VITALS: BP 130/74; PULSE 69; RESP 18; TEMP 36.8; O2SAT 98
[2024-04-19 22:06] VITALS: BP 136/73; PULSE 98; RESP 20; TEMP 36.8; O2SAT 98
[2024-04-19 22:38] VITALS: BP 149/78; PULSE 114; RESP 16; TEMP 37; O2SAT 98
[2024-04-20] VITALS (18 sets, daily range): BP systolic 114–157; BP diastolic 54–82; PULSE 87–125; RESP 12–22; TEMP 36.6–39.5; O2SAT 95–99
--- NOTE | 2024-04-20 00:22 | ED.GENADULT ---
HPI - General Adult General Chief complaint: General Medical Stated complaint: Flank pain Time Seen by Provider: 04/19/24 23:55 Source: patient Mode of arrival: ambulatory Limitations: no limitations History of Present Illness ED Provider: haroon swenson NP HPI narrative: I assumed care patient at 00:23 Patient is a 59-year-old female presents emergency department for evaluation. She admits having generalized body of the primarily bilateral flank pain and fevers at home since yesterday, there was initial nursing report a productive cough however she states it is more nausea vomiting of clear phlegm occasional bile. Mild headache. She has had associated dysuria, noticed some blood in her urine, although she does admit that the dysuria has improved greatly, and her flank pain overall has decreased right was greater than left, she believes she may have passed a kidney stone. Admits to having a history of stones in the past previously requiring lithotripsy/stenting. She denies pain, neck stiffness, chest pain, shortness of breath, numbness or tingling of the extremities, constipation, diarrhea, hematochezia, melena. Related Data Home Medications ?Medication ?Instructions ?Recorded ?Confirmed No Known Home Meds 04/20/24 04/20/24 Allergies Allergy/AdvReac Type Severity Reaction Status Date / Time No Known Allergies Allergy Verified 04/20/24 15:59 Review of Systems Review of Systems: Yes all other systems are reviewed and are negative PMFSH Past Medical History Attestation statement: The following information was validated with the patient. Source: old records reviewed Medical History Breast density Surgical History H/O lithotripsy Social History Social History Housing: House Are you a primary customer care team coach to a significant other at home: No Do you presently have visiting nurse or other home services: No Alcohol intake: never Patient Tobacco Use Status: Never used Tobacco service: No Physical Exam ED Vital Signs: Vital Signs - 24 hr 04/19/24 16:40 04/19/24 19:54 04/19/24 22:06 Temperature 103.2 F H 98.2 F 98.3 F Pulse Rate 129 H 69 98 Respiratory Rate 20 18 20 Blood Pressure 134/71 130/74 136/73 Pulse Oximetry 99 98 98 Oxygen Delivery Method Room Air Room Air Room Air 04/19/24 22:38 04/20/24 00:36 04/20/24 00:55 Temperature 98.6 F 103.1 F H Pulse Rate 114 H 122 H 125 H Respiratory Rate 16 22 H 21 H Blood Pressure 149/78 H 149/77 H 143/68 H Pulse Oximetry 98 95 96 Oxygen Delivery Method Room Air Room Air Room Air 04/20/24 01:16 04/20/24 01:18 04/20/24 01:35 Temperature 102.7 F H 100.0 F Pulse Rate 115 H 114 H 117 H Respiratory Rate 17 17 12 Blood Pressure 140/54 H 132/73 151/72 H Pulse Oximetry 96 98 Oxygen Delivery Method Room Air Room Air BMI result Body Mass Index 54.9 Appearance: Alert.?Oriented to person, place and time. No acute distress.?Normal affect. Eyes: Pupils equal, round and reactive to light.? ENT: Pharynx normal.?? Neck: Normal inspection.? Neck supple.?? CVS: Heart sounds normal. Tachycardia? Pulses normal.?? Respiratory: No respiratory distress.? Lung sounds clear to auscultation bilaterally?? Abdomen: Soft with right upper and lower quadrant tenderness upon palpation. Negative Hart sign. No rebound tenderness at McBurney's point. Negative Rovsing and psoas sign. No CVAT. Normoactive bowel sounds. No pulsatile mass.?? Skin: Skin warm and dry.? Normal skin color.??? Extremities: No lower extremity edema.? Neuro: Moves all extremities spontaneously. Sensation intact bilaterally. No focal neuro deficits. Ambulates with normal steady gait. Course Reevaluation(s) Reevaluation #1: Urinalysis with microscopic hematuria and evidence of acute infection. No Lactic acidosis. No hypotension. CT of the abdomen and pelvis is pending at this time, on my interpretation has right-sided hydro with nephrolithiasis and perinephric stranding concerning for pyelonephritis. Anticipating admission to medicine service spoke with hospitalist, Dr. Henao Medications Administered Generic Name Dose Route Start Last Admin Trade Name Freq PRN Reason Stop Dose Admin Acetaminophen 650 mg 04/20/24 03:05 02/13/25 20:11 Acetaminophen 325 Mg Tablet PO 650 mg Q6H PRN Administration Pain, Mild 1-3,fever,headache Ceftriaxone Sodium 2 gm 04/20/24 21:00 04/21/24 20:13 Ceftriaxone Sodium 2 Gm Vial IVPUSH 2 gm Q24H KONRAD Administration Melatonin 6 mg 04/20/24 03:05 04/20/24 20:10 Melatonin 3 Mg Tablet PO 6 mg BEDTIME PRN Administration Insomnia Ondansetron HCl 4 mg 04/20/24 03:05 04/22/24 08:38 Ondansetron Hcl 4 Mg/2 Ml Vial IVPUSH 4 mg Q8H PRN Administration Nausea and Vomiting Pyridoxine HCl 100 mg 04/21/24 09:00 04/22/24 08:38 Pyridoxine Hcl (Vitamin B6) 50 Mg Tablet PO 100 mg DAILY KONRAD Administration Sodium Chloride 3 ml 04/20/24 08:00 04/22/24 08:38 0.9 % Sodium Chloride Flush 3 Ml Syringe IVFLUSH 3 ml QSHIFT KONRAD Administration Vitamin D 25 mcg 04/21/24 09:00 04/22/24 08:38 Cholecalciferol (Vitamin D3) 25 Mcg Tablet PO 25 mcg DAILY KONRAD Administration Discontinued Medications Generic Name Dose Route Start Last Admin Trade Name Freq PRN Reason Stop Dose Admin Acetaminophen 975 mg 04/19/24 16:45 04/19/24 16:46 Acetaminophen 325 Mg Tablet PO 04/19/24 16:46 975 mg ONCE ONE Administration Acetaminophen 975 mg 04/20/24 00:33 04/20/24 00:54 Acetaminophen 325 Mg Tablet PO 04/20/24 00:34 975 mg ONCE ONE Administration Ceftriaxone Sodium 1 gm 04/20/24 00:33 04/20/24 00:50 Ceftriaxone Sodium 1 Gm Vial IVPUSH 04/20/24 00:34 1 gm ONCE ONE Administration Ceftriaxone Sodium 1 gm 04/20/24 03:30 04/20/24 04:09 Ceftriaxone Sodium 1 Gm Vial IVPUSH 04/20/24 03:31 1 gm ONCE ONE Administration Sodium Chloride 1,503 mls @ 1,503 mls/hr 04/20/24 00:33 04/20/24 05:20 Ns IV 04/20/24 01:32 Infused .Q1H STA Infusion Acetaminophen 1,000 mg in 100 mls @ 400 mls/hr 04/20/24 16:25 04/20/24 17:16 Ofirmev IV 04/20/24 16:39 Infused PREOP ONE Infusion Iohexol 85 ml 04/20/24 01:03 04/20/24 01:04 Iohexol 350 Mg/Ml 100 Ml Infus..Btl IV 04/20/24 01:04 85 ml ONCE ONE Administration Ketorolac Tromethamine 15 mg 04/20/24 17:03 04/20/24 17:33 Ketorolac Tromethamine 15 Mg/Ml Vial IVPUSH 04/20/24 17:04 15 mg ONCE ONE Administration Phenazopyridine HCl 100 mg 04/20/24 17:03 04/20/24 17:33 Phenazopyridine Hcl 100 Mg Tablet PO 04/20/24 17:04 100 mg ONCE ONE Administration Tamsulosin HCl 0.4 mg 04/20/24 03:51 04/20/24 04:09 Tamsulosin Hcl 0.4 Mg Capsule PO 04/20/24 03:52 0.4 mg ONCE ONE Administration Medical Decision Making Medical Decision Making MDM Narrative: I assumed care of patient is a 00:23 Patient 59 year old female with past medical history of morbid obesity, nephrolithiasis who presents emergency department for evaluation of fevers, nausea, flank pain, headache as per HPI. Sepsis fluid bolus ordered based on ideal body weight given morbid obesity. Blood cultures lactic acid. She is febrile 101.0, tachycardic pulse of 125, on review of labs obtained prior to my assumption of care she has a leukocytosis 13,700 with left shift, no anemia. No electrolyte derangement. No ANDRE. T. bilirubin of 2.3, criteria for organ dysfunction in the setting of sepsis, mildly elevated AST/ALT 59/66, negative Hart sign, lower suspicion for acute hepatobiliary etiology, however obtaining CT of the abdomen and pelvis which will further differentiate. she will receive acetaminophen. Covering empirically with Rocephin as I suspect urinary tract pathology; pyelonephritis, hydronephrosis, ureteral calculi, obstructive calculi, UTI. Differential Diagnosis Differential Diagnoses: The differential diagnosis associated with the presentation includes (See narrative above) Admission/Observation Consideration of admission/observation: Escalation of care including admission/observation considered (See narrative above and course narrative for) Lab Data MDM Lab Attestation statement: I reviewed the patient's lab results. (See narrative above) 04/20/24 05:45 04/20/24 05:45 Labs: Lab Results 04/19/24 04/20/24 04/20/24 Range/Units 17:14 00:17 00:49 WBC 13.7 H (4.8-10.8) X10*3/uL RBC 4.40 (4.20-5.50) X10*6/uL Hgb 13.2 (12.0-16.0) g/dl Hct 39.8 (37.0-47.0) % MCV 90.5 (80.0-98.0) fL MCH 30.0 (27.0-33.0) pg MCHC 33.2 (31.0-35.0) g/dl RDW 13.5 (11.0-16.0) % Plt Count 233 (160-400) X10*3/uL MPV 9.5 (9.4-12.3) fL Immature Gran % (Auto) 0.5 H (0.0-0.4) % Neut % (Auto) 82.1 H (45-73) % Lymph % (Auto) 8.4 L (20-40) % [place] % (Auto) 8.8 (2-11) % Eos % (Auto) 0.0 (0-4) % Baso % (Auto) 0.2 (0-2) % Lymph # (Auto) 1.2 (1.2-4.9) X10*3/uL [place] # (Auto) 1.2 (0.1-1.2) X10*3/uL Eos # (Auto) 0.0 (0.0-0.4) X10*3/uL Baso # (Auto) 0.0 (0.0-0.2) X10*3/uL Abs Immat Gran (auto) 0.07 H (0.00-0.03) X10*3/uL Absolute Neuts (auto) 11.3 H (2.0-8.3) x10*3/uL Absolute Nucleated RBC 0.000 (0.0-0.012) X10*3/uL Nucleated RBC % (auto) 0.0 (0.0-0.2) /100WBC Sodium 136 (135-145) mmol/L Potassium 3.6 (3.3-5.1) mmol/L Chloride 105 (96-108) mmol/L Carbon Dioxide 21 L (22-29) mmol/L Anion Gap 14 (12-20) BUN 12 (9-16) mg/dL Creatinine 0.96 (0.5-1.4) mg/dL Estim Creat Clear Calc 82.0 Estimated GFR 59 Random Glucose 132 H (60-115) mg/dL Lactic Acid 1.8 (0.5-2.0) mmol/L Calcium 8.9 D (8.4-10.2) mg/dL Total Bilirubin 2.3 H (0.0-1.0) mg/dL Direct Bilirubin 0.9 H (0.0-0.5) mg/dL AST 59 H (5-31) U/L ALT 66 H (0-31) U/L Alkaline Phosphatase 101 (39-117) U/L Total Protein 8.4 H (6.5-8.0) g/dL Albumin 4.2 (3.5-5.0) g/dL Hold Green Top See Note Urine Color Dark Yellow Urine Appearance Turbid Urine pH 6.0 (5.0-9.0) Ur Specific [place] 1.015 (1.005-1.025) Urine Protein 100 (2+) H (Neg-Trace) mg/dL Urine Glucose (UA) Negative (Negative) mg/dL Urine Ketones 15 (Negative) mg/dL Urine Blood Moderate (2+) H (Negative) Urine Nitrite Positive H (Negative) Ur Leukocyte Esterase Large (3+) H (Negative) Urine RBC >20 H (0-2) /HPF Urine WBC >50 H (0-5) /HPF Ur Squamous Epith Cells 0-2 (0-2) /HPF Urine Bacteria 4+ (None Seen) Hyaline Casts 0-2 (0-2) /LPF Influenza Type A (PCR) NEGATIVE (Negative) Influenza Type B (PCR) NEGATIVE (Negative) RSV RNA Qual (PCR) NEGATIVE (Negative) SARS-CoV-2 RNA (RT-PCR) NEGATIVE (Negative) Radiology Impression Discussion of test interpretation with radiology: I have reviewed the radiologist's reading. Independent Historian Clinical information obtained from an independent historian. History obtained from or confirmed by: Other (Daughter) External Record Review External record reviewed: Outpatient record Critical Care Time Critical Care Time Critical Care Time: Yes Total Critical Care Time: 35 Attestation: I personally attest to this critical care time spent taking care of the patient exclusive of all other billable procedures was approximately 35 minutes including initial evaluation of patient, ordering tests, CT interpretation, Sepsis management, medical consultation, documentation, re-evaluation. Discharge Plan Discharge Clinical Impression: Pyelonephritis, Sepsis Patient Disposition: Admitted As Inpatient Discharge Date/Time: 04/21/24 07:04
[2024-04-20 00:25] LABS: Appearance Urine Turbid; Color Urine Dark Yellow; Glucose Urine UA Negative (Negative); Leukocyte Esterase Urine Large (3+) (Negative); Nitrite Urine Positive (Negative); Specific Gravity - Urine 1.015 (1.005-1.025); UMIC TRIGGER UACC YES; Urine Blood Moderate (2+) (Negative); Urine Ketones 15 mg/dL (Negative); Urine Protein 100 (2+) mg/dL (Neg-Trace)
[2024-04-20 00:30] LABS: Bacteria Urine 4+ (None Seen); Hyaline Casts Urine 0-2 /LPF (0-2); RBC Urine >20 /HPF (0-2); Squamous Epithelial Cell Urine 0-2 /HPF (0-2); UACC Culture Trigger YES; WBC Urine >50 /HPF (0-5)
[2024-04-20] MEDS: cefTRIAXone sodium 1 GM VIAL IVPUSH ×2 (00:50→04:09)
[2024-04-20] MEDS: Acetaminophen 325 MG TABLET 975 MG PO (00:54)
[2024-04-20] MEDS: iohexoL 350 MG/ML 100 ML INFUS..BTL 85 ML IV (01:04)
[2024-04-20 01:16] LABS: Bilirubin Direct 0.9 mg/dL (0.0-0.5)
[2024-04-20 01:16] LABS: Lactic Acid 1.8 mmol/L (0.5-2.0)
--- NOTE | 2024-04-20 03:07 | P.HPHOSP_ITS ---
History of Present Illness Date of Service: 04/20/24 Chief Complaint: Abdominal pain This is a 59-year-old female with pertinent history of nephrolithiasis who presents to the emergency department for evaluation of flank pain, dysuria, fevers and chills. Patient states her symptoms started 1 day prior to presentation. She has been having dysuria with fevers and chills. Also has been having right flank pain which is constant, nonprogressive, without any radiation. Has associated nausea and multiple episodes of nonbloody emesis. Endorses generalized malaise. Does have a history of kidney stones and UTI in the past. No chest pain, palpitations, shortness of breath, changes in bowel habits. In the emergency department, patient was found to be septic and urine concerning for UTI. Imaging with obstructive right ureterolithiasis and moderate hydroureteronephrosis. Review of Systems 2 Constitutional: Constitutional: Reports fatigue, Reports malaise and Reports poor appetite Cardiovascular: Cardiovascular: Reports no additional cardiovascular complaints Respiratory: Respiratory: Reports no additional respiratory complaints Gastrointestinal: Gastrointestinal: Reports abdominal pain, Reports nausea and Reports vomiting Genitourinary: Genitourinary: Reports hematuria, Reports dysuria and Reports flank pain Endocrine: Endocrine: Reports fatigue PMFSH Medical History Breast density Pertinent family history: No family history of early CAD Surgical History H/O lithotripsy Social History Alcohol intake: never Patient Tobacco Use Status: Never used Tobacco Advance Directives: No Advance Directives Information Provided: No Do you have a plan to hurt others: No Plan Meds Allergies Allergy/AdvReac Type Severity Reaction Status Date / Time No Known Allergies Allergy Verified 04/19/24 16:43 Active Medications: Current Medications Acetaminophen (Acetaminophen 325 Mg Tablet) 650 mg PO Q6H PRN PRN Reason: Pain, Mild 1-3,fever,headache Calcium Carbonate (Calcium Carbonate 750 Mg Tab.Chew) 750 mg PO Q4H PRN PRN Reason: Heartburn Ceftriaxone Sodium (Ceftriaxone Sodium 1 Gm Vial) 1 gm IVPUSH Q24H [facility] Magnesium Hydroxide (Milk Of Magnesia 30 Ml Oral.Susp) 30 ml PO DAILY PRN PRN Reason: Constipation Melatonin (Melatonin 3 Mg Tablet) 6 mg PO BEDTIME PRN PRN Reason: Insomnia Ondansetron HCl (Ondansetron Hcl 4 Mg/2 Ml Vial) 4 mg IVPUSH Q8H PRN PRN Reason: Nausea and Vomiting Sodium Chloride (0.9 % Sodium Chloride Flush 3 Ml Syringe) 3 ml IVFLUSH QSHIFT [facility] Home Medications ?Medication ?Instructions ?Recorded ?Confirmed ?Last Taken ?Type calcium carbonate (Calcium 500) 500 mg PO DAILY 05/25/23 09/03/23 Unknown History pantoprazole 40 mg tablet,delayed 40 mg PO DAILY 05/25/23 09/03/23 Unknown History release Physical Exam 2 Vital Signs and Narrative: Vital Signs: Last Vital Signs Temp 100.0 F 04/20/24 01:35 Pulse 117 H 04/20/24 01:35 Resp 12 04/20/24 01:35 BP 151/72 H 04/20/24 01:35 Pulse Ox 98 04/20/24 01:35 O2 Del Method Room Air 04/20/24 01:35 BMI result Body Mass Index 54.9 Middle-aged female lying in bed in no distress Neck supple, no JVD Regular rate and rhythm, S1-S2 heard Regular breath sounds bilaterally, no wheezing or crackles appreciated Abdomen with right CVA tenderness present Patient is awake, alert and oriented to self, place, time and person ; no focal motor deficit Psych: Normal mood No pedal edema Results Labs 04/19/24 17:14 04/19/24 17:14 Labs: Laboratory Results - last 24 hr 04/19/24 04/20/24 04/20/24 17:14 00:17 00:49 MCV 90.5 MCH 30.0 MCHC 33.2 RDW 13.5 Plt Count 233 MPV 9.5 Immature Gran % (Auto) 0.5 H Neut % (Auto) 82.1 H Lymph % (Auto) 8.4 L [place] % (Auto) 8.8 Eos % (Auto) 0.0 Baso % (Auto) 0.2 Lymph # (Auto) 1.2 [place] # (Auto) 1.2 Eos # (Auto) 0.0 Baso # (Auto) 0.0 Abs Immat Gran (auto) 0.07 H Absolute Neuts (auto) 11.3 H Absolute Nucleated RBC 0.000 Nucleated RBC % (auto) 0.0 Anion Gap 14 Estim Creat Clear Calc 82.0 Estimated GFR 59 Random Glucose 132 H Lactic Acid 1.8 Calcium 8.9 D Total Bilirubin 2.3 H Direct Bilirubin 0.9 H AST 59 H ALT 66 H Alkaline Phosphatase 101 Total Protein 8.4 H Albumin 4.2 Hold Green Top See Note Urine Color Dark Yellow Urine Appearance Turbid Urine pH 6.0 Ur Specific [place] 1.015 Urine Protein 100 (2+) H Urine Glucose (UA) Negative Urine Ketones 15 Urine Blood Moderate (2+) H Urine Nitrite Positive H Ur Leukocyte Esterase Large (3+) H Urine RBC >20 H Urine WBC >50 H Ur Squamous Epith Cells 0-2 Urine Bacteria 4+ Hyaline Casts 0-2 Influenza Type A (PCR) NEGATIVE Influenza Type B (PCR) NEGATIVE RSV RNA Qual (PCR) NEGATIVE SARS-CoV-2 RNA (RT-PCR) NEGATIVE Assessment and Plan (1) Sepsis: Status: Acute (2) Pyelonephritis: Status: Acute (3) Ureterolithiasis: Status: Acute Plan This is a 59-year-old female with pertinent history of nephrolithiasis who presents to the emergency department for evaluation of flank pain, dysuria, fevers and chills. #. Sepsis due to acute UTI with right-sided pyelonephritis: Will admit patient with IV ceftriaxone. Culture and urine culture obtained. Resuscitated with IV crystalloids. Lactic acid obtained #. Obstructive right ureterolithiasis with hydroureteronephrosis: Administered Flomax. Consulting Urology #. Elevated transaminases in the setting of sepsis #. Obesity: Counseled regarding diet and exercise Med rec pending DVT prophylaxis: Hold Lovenox until urological evaluation Full code Admit as inpatient and will require two night minimum hospital stay for IV antibiotics (as above), which is not possible in a lesser acute setting. Urology consult pending Quality Stroke Does the patient have a stroke diagnosis?: No VTE Prior VTE?: No VTE Risk Level:: Medical - moderate - high VTE Device Contraindication: Treatment Not Indicated VTE Drug Contraindication: N/A - Med Ordered
[2024-04-20] MEDS: Tamsulosin HCL 0.4 MG CAPSULE PO (04:09)
[2024-04-20 06:13] LABS: MANUAL DIFF FLAG NO
[2024-04-20 06:15] LABS: Basophils Percent Auto 0.2 % (0-2); Imm Gran Abs Auto 0.05 X10*3/uL (0.00-0.03); Imm Gran Pct Auto 0.4 % (0.0-0.4); Lymphocytes Absolute Auto 1.3 X10*3/uL (1.2-4.9); Lymphocytes Percent Auto 11.6 % (20-40); Mean Corpuscular HGB Conc 31.7 g/dl (31.0-35.0); Mean Corpuscular Hemoglobin 29.6 pg (27.0-33.0); Mean Corpuscular Volume 93.4 fL (80.0-98.0); Mean Platelet Volume 10.3 fL (9.4-12.3); Monocytes Absolute Auto 0.8 X10*3/uL (0.1-1.2); Monocytes Percent Auto 7.3 % (2-11); Neutrophils Absolute Auto 9.3 x10*3/uL (2.0-8.3); Neutrophils Percent Auto 80.5 % (45-73); Platelet Count 208 X10*3/uL (160-400); Red Blood Count 4.39 X10*6/uL (4.20-5.50); Red Cell Distribution Width 13.6 % (11.0-16.0); White Blood Count 11.6 X10*3/uL (4.8-10.8)
[2024-04-20 06:33] LABS: Anion Gap 16 (12-20); Blood Urea Nitrogen 12 mg/dL (9-16); Calcium 8.8 mg/dL (8.4-10.2); Carbon Dioxide 20 mmol/L (22-29); Chloride 107 mmol/L (96-108); Creatinine Clr Calc Pharmacy 76.5; Estimated Glomerular Filt Rate 54; Glucose Random 129 mg/dL (60-115); Potassium 5.1 mmol/L (3.3-5.1); Sodium 138 mmol/L (135-145)
--- NOTE | 2024-04-20 09:30 | PHA.MEDREC ---
Addendum entered by Nancy Pena RPh 04/20/24 10:42: Reviewed by [facility] Original Note: Pharmacy Consult ? Medication Reconciliation Pharmacy has completed the medication reconciliation. Spoke to patient to confirm med list. Patient states she no longer takes Pantoprazole 40 mg.
[2024-04-20] MEDS: 0.9 % Sodium Chloride Flush 3 ML SYRINGE IVFLUSH ×2 (09:50→20:10)
--- NOTE | 2024-04-20 11:21 | PM.UROCN ---
History of Present Illness Consult details Consult date: 05/11/24 Narrative: CC: Distal right ureteric stone 59-year-old female Prior history nephrolithiasis Presents to emergency department with right flank pain, dysuria, self reported fevers and chills Symptoms present for 24 hours prior to admission. Minimal relieving factors. Right flank pain is constant without radiation Associated nausea and multiple episodes of emesis Denies hematuria WBC 11.6, calcium 8.8 UA positive nitrite. Culture pending. Imaging - Obstructive 6 mm distal right ureteric calculus with moderate upstream hydroureteronephrosis Recommend admission with antibiotics - cystoscopy with retrograde and possible ureteroscopy with laser lithotripsy and stent placement Review of Systems Constitutional: Constitutional: Reports as per HPI and Reports no additional constitutional complaints Cardiovascular: Cardiovascular: Reports as per HPI and Reports no additional cardiovascular complaints Respiratory: Respiratory: Reports as per HPI and Reports no additional respiratory complaints Gastrointestinal: Gastrointestinal: Reports as per HPI and Reports no additional gastrointestinal complaints Genitourinary: Genitourinary: Reports as per HPI Musculoskeletal: Musculoskeletal: Reports no additional musculoskeletal complaints and Reports as per HPI Neurologic: Reports system reviewed and no additional complaints, except as documented and Reports as per HPI [facility] Past Medical History Medical History Breast density Surgical History Surgical History H/O lithotripsy Social History Social History Alcohol intake: never Patient Tobacco Use Status: Never used Tobacco Advance Directives: No Advance Directives Information Provided: No Do you have a plan to hurt others: No Plan Meds Allergies Allergy/AdvReac Type Severity Reaction Status Date / Time No Known Allergies Allergy Verified 04/19/24 16:43 Active Medications: Current Medications Acetaminophen (Acetaminophen 325 Mg Tablet) 650 mg PO Q6H PRN PRN Reason: Pain, Mild 1-3,fever,headache Calcium Carbonate (Calcium Carbonate 750 Mg Tab.Chew) 750 mg PO Q4H PRN PRN Reason: Heartburn Ceftriaxone Sodium (Ceftriaxone Sodium 2 Gm Vial) 2 gm IVPUSH Q24H [facility] Magnesium Hydroxide (Milk Of Magnesia 30 Ml Oral.Susp) 30 ml PO DAILY PRN PRN Reason: Constipation Melatonin (Melatonin 3 Mg Tablet) 6 mg PO BEDTIME PRN PRN Reason: Insomnia Morphine Sulfate (Morphine Sulfate 2 Mg/Ml Cartridge) 2 mg IVPUSH Q4H PRN; Protocol PRN Reason: Pain, Severe (Pain Scale 7-10) Ondansetron HCl (Ondansetron Hcl 4 Mg/2 Ml Vial) 4 mg IVPUSH Q8H PRN PRN Reason: Nausea and Vomiting Sodium Chloride (0.9 % Sodium Chloride Flush 3 Ml Syringe) 3 ml IVFLUSH QSHIFT [facility] Last Admin: 04/20/24 09:50 Dose: 3 ml Home Medications ?Medication ?Instructions ?Recorded ?Confirmed ?Last Taken ?Type calcium carbonate (Calcium 500) 500 mg PO DAILY 05/25/23 04/20/24 Unknown History cholecalciferol (vitamin D3) 25 25 mcg PO DAILY 04/20/24 04/20/24 Unknown History mcg (1,000 unit) tablet Physical Exam Vital Signs: Vital Signs: Last Vital Signs Temp 100.2 F 04/20/24 05:16 Pulse 106 H 04/20/24 05:25 Resp 14 04/20/24 05:16 BP 155/71 H 04/20/24 05:25 Pulse Ox 98 04/20/24 05:16 O2 Del Method Room Air 04/20/24 05:16 BMI result Body Mass Index 54.9 Const: General: cooperative, healthy appearing, comfortable and no acute distress Orientation/consciousness: patient oriented x3 HEENT: Face and sinus: Yes normal facial exam Mouth: moist mucous membranes Neck: Neck: Yes normal visual inspection, Yes full ROM and Yes trachea midline Chest: Chest palpation & inspection: normal inspection of the chest Resp: Effort & Inspection: normal respiratory effort, able to speak in complete sentences and no respiratory distress GI: Inspection: Yes normal to inspection Back/Spine/Pelvis: Cervical Spine: normal cervical lordosis Thoracic/Lumbar Spine: thoracic and lumbar spine normal to inspection Skin: General skin exam: no rashes or lesions noted Neuro: General: patient oriented x3, tone normal and moves all extremities Extrem: General: Yes normal to inspection and Yes capillary refill normal Results Labs 04/20/24 05:45 04/20/24 05:45 Labs: Abnormal lab results 04/19/24 04/20/24 04/20/24 Range/Units 17:14 00:17 05:45 WBC 13.7 H 11.6 H (4.8-10.8) X10*3/uL Immature Gran % (Auto) 0.5 H (0.0-0.4) % Neut % (Auto) 82.1 H 80.5 H (45-73) % Lymph % (Auto) 8.4 L 11.6 L (20-40) % Abs Immat Gran (auto) 0.07 H 0.05 H (0.00-0.03) X10*3/uL Absolute Neuts (auto) 11.3 H 9.3 H (2.0-8.3) x10*3/uL Carbon Dioxide 21 L 20 L (22-29) mmol/L Random Glucose 132 H 129 H (60-115) mg/dL Total Bilirubin 2.3 H (0.0-1.0) mg/dL Direct Bilirubin 0.9 H (0.0-0.5) mg/dL AST 59 H (5-31) U/L ALT 66 H (0-31) U/L Total Protein 8.4 H (6.5-8.0) g/dL Urine Protein 100 (2+) H (Neg-Trace) mg/dL Urine Blood Moderate (2+) H (Negative) Urine Nitrite Positive H (Negative) Ur Leukocyte Esterase Large (3+) H (Negative) Urine RBC >20 H (0-2) /HPF Urine WBC >50 H (0-5) /HPF Short CBC 04/19/24 04/20/24 Range/Units 17:14 05:45 WBC 13.7 H 11.6 H (4.8-10.8) X10*3/uL Hgb 13.2 13.0 (12.0-16.0) g/dl Hct 39.8 41.0 (37.0-47.0) % Plt Count 233 208 (160-400) X10*3/uL BMP 04/19/24 04/20/24 17:14 05:45 Sodium 136 138 Potassium 3.6 5.1 D Chloride 105 107 Carbon Dioxide 21 L 20 L BUN 12 12 Creatinine 0.96 1.03 Calcium 8.9 D 8.8 Liver Function 04/19/24 Range/Units 17:14 Total Bilirubin 2.3 H (0.0-1.0) mg/dL Direct Bilirubin 0.9 H (0.0-0.5) mg/dL AST 59 H (5-31) U/L ALT 66 H (0-31) U/L Alkaline Phosphatase 101 (39-117) U/L Albumin 4.2 (3.5-5.0) g/dL Urine 04/20/24 Range/Units 00:17 Urine Color Dark Yellow Urine Appearance Turbid Urine pH 6.0 (5.0-9.0) Ur Specific [place] 1.015 (1.005-1.025) Urine Protein 100 (2+) H (Neg-Trace) mg/dL Urine Glucose (UA) Negative (Negative) mg/dL All other labs normal. Assessment and Plan (1) Ureterolithiasis: Status: Acute Plan Ureteroscopy We discussed the nature of the decision and reasonable alternatives for performing ureteroscopy. Options such as medical therapy were discussed. Interventions include chemical dissolution, ESWL, ureteroscopy with laser lithotripsy and stent placement, PCNL. The relative uncertainties and benefits related to each alternate procedure were adequately discussed. General surgical risks including, but not limited to - pain, bleeding, infection, myocardial infarction, pulmonary embolus, deep vein thrombosis and cerebrovascular accident which may result in further hospitalization were discussed. Full disclosure of the procedure as well as all major risks, benefits and complications were discussed including but not limited to damage to the urethra, bladder and kidney infection, damage to the ureter, stent migration or malposition, scarring to the renal pelvis, remnant stone fragments, subsequent stone passage with need for secondary procedures. The overall secondary procedure rate is approximately 10-15%. The overall clearance rate is approximately 90-95%. Success of the procedure in the short-term does not necessarily guarantee that long-term success will be maintained. Suitable follow up will need to be maintained. The patient showed understanding of discussion and wishes to proceed with - cystoscopy, retrograde, ureteroscopy, possible lithotripsy/stone basketing and stent on the right side Procedures Date of Service Date of Service: 04/20/24
--- NOTE | 2024-04-20 11:33 | MHC.CM.PN ---
PT LIVES WITH DAUGHTER HAS OWN RIDE HOME IS INDEPEDENT DC PLAN HOME NO SERVICES
[2024-04-20] MEDS: Acetaminophen 325 MG TABLET 650 MG PO (11:52)
--- NOTE | 2024-04-20 13:19 | PM.EVENT ---
Event Note Date of Service: 04/20/24 Event Note: This is a 59-year-old female with pertinent history of nephrolithiasis who presents to the emergency department for evaluation of flank pain, dysuria, fevers and chills. Sepsis due to acute UTI with right-sided pyelonephritis IV ceftriaxone. Culture and urine culture obtained. Resuscitated with IV crystalloids. normal Lactic acid Obstructive right ureterolithiasis with hydroureteronephrosis 6mm obstructing stone Flomax. Urology following> plan for OR today Elevated transaminases in the setting of sepsis Obesity. BMI 54.9 Discussed importance of weight management as this may be contributing to worsening of other comorbidities DVT prophylaxis: Hold Lovenox until urological evaluation Full code Time Spent With Patient Time: Total time managing care of this patient today ____ minutes.
--- NOTE | 2024-04-20 16:18 | P.CONAN_ITS ---
[facility] Active Problems Active Problems: All Active Problems Ureterolithiasis (Acute) Sepsis (Acute) Pyelonephritis (Acute) Renal scarring (Acute) Bilateral kidney stones (Acute) Kidney stone (Acute) Breast density (Acute) Cervical cancer screening (Acute) Obesity, morbid, BMI 40.0-49.9 (Acute) Well woman exam with routine gynecological exam (Acute) Past Medical History Medical History Breast density Functional capacity: independent ambulation Patient : No Family History Family history of problems with anesthesia: No Surgical History Surgical History H/O lithotripsy History of Problems with Anesthesia: No Social History Social History Are you a primary janitor caretaker to a significant other at home: No Do you presently have visiting nurse or other home services: No Alcohol intake: never Patient Tobacco Use Status: Never used Tobacco Use of substances other than those prescribed or required for medical reasons: No Have you been hit, kicked, punched, or otherwise hurt by someone within the past year? If so, by whom?: No Are you DNR?: No Advance Directives: No Advance Directives Information Provided: No Advance Directives on File: No Do you have a plan to hurt others: No Plan Recently lost weight without trying: No How much weight loss: Not applicable Eating poorly because of decreased appetite: No Nutrition screen score: 0 Nutrition Risks: No Nutritional Risk Patient : No : No Poor oral hygiene: Yes (missing teeth) service: No Meds Allergies Allergy/AdvReac Type Severity Reaction Status Date / Time No Known Allergies Allergy Verified 04/20/24 15:59 Active Medications: Current Medications Acetaminophen (Acetaminophen 325 Mg Tablet) 650 mg PO Q6H PRN PRN Reason: Pain, Mild 1-3,fever,headache Last Admin: 04/20/24 11:52 Dose: 650 mg Calcium Carbonate (Calcium Carbonate 750 Mg Tab.Chew) 750 mg PO Q4H PRN PRN Reason: Heartburn Ceftriaxone Sodium (Ceftriaxone Sodium 2 Gm Vial) 2 gm IVPUSH Q24H [facility] Magnesium Hydroxide (Milk Of Magnesia 30 Ml Oral.Susp) 30 ml PO DAILY PRN PRN Reason: Constipation Melatonin (Melatonin 3 Mg Tablet) 6 mg PO BEDTIME PRN PRN Reason: Insomnia Morphine Sulfate (Morphine Sulfate 2 Mg/Ml Cartridge) 2 mg IVPUSH Q4H PRN; Protocol PRN Reason: Pain, Severe (Pain Scale 7-10) Ondansetron HCl (Ondansetron Hcl 4 Mg/2 Ml Vial) 4 mg IVPUSH Q8H PRN PRN Reason: Nausea and Vomiting Pyridoxine HCl (Pyridoxine Hcl (Vitamin B6) 50 Mg Tablet) 100 mg PO DAILY [facility] Sodium Chloride (0.9 % Sodium Chloride Flush 3 Ml Syringe) 3 ml IVFLUSH QSHIFT [facility] Last Admin: 04/20/24 09:50 Dose: 3 ml Vitamin D (Cholecalciferol (Vitamin D3) 25 Mcg Tablet) 25 mcg PO DAILY [facility] Home Medications ?Medication ?Instructions ?Recorded ?Confirmed ?Last Taken ?Type No Known Home Meds 04/20/24 04/20/24 Unknown History Exam Height,Weight and Vital Signs: Height 5 ft 2 in Weight 136.078 kg Last Vital Signs Temp 98.3 F 04/20/24 16:01 Pulse 114 H 04/20/24 16:01 Resp 16 04/20/24 16:01 BP 136/82 04/20/24 16:01 Pulse Ox 98 04/20/24 16:01 O2 Del Method Room Air 04/20/24 16:01 Pertinent Lab Results Pertinent Lab Results: Laboratory Tests 04/19/24 04/20/24 04/20/24 17:14 00:17 00:49 WBC 13.7 H RBC 4.40 Hgb 13.2 Hct 39.8 MCV 90.5 MCH 30.0 MCHC 33.2 RDW 13.5 Plt Count 233 MPV 9.5 Immature Gran % (Auto) 0.5 H Neut % (Auto) 82.1 H Lymph % (Auto) 8.4 L [place] % (Auto) 8.8 Eos % (Auto) 0.0 Baso % (Auto) 0.2 Lymph # (Auto) 1.2 [place] # (Auto) 1.2 Eos # (Auto) 0.0 Baso # (Auto) 0.0 Abs Immat Gran (auto) 0.07 H Absolute Neuts (auto) 11.3 H Absolute Nucleated RBC 0.000 Nucleated RBC % (auto) 0.0 Sodium 136 Potassium 3.6 Chloride 105 Carbon Dioxide 21 L Anion Gap 14 BUN 12 Creatinine 0.96 Estim Creat Clear Calc 82.0 Estimated GFR 59 Random Glucose 132 H Lactic Acid 1.8 Calcium 8.9 D Total Bilirubin 2.3 H Direct Bilirubin 0.9 H AST 59 H ALT 66 H Alkaline Phosphatase 101 Total Protein 8.4 H Albumin 4.2 Hold Green Top See Note Urine Color Dark Yellow Urine Appearance Turbid Urine pH 6.0 Ur Specific [place] 1.015 Urine Protein 100 (2+) H Urine Glucose (UA) Negative Urine Ketones 15 Urine Blood Moderate (2+) H Urine Nitrite Positive H Ur Leukocyte Esterase Large (3+) H Urine RBC >20 H Urine WBC >50 H Ur Squamous Epith Cells 0-2 Urine Bacteria 4+ Hyaline Casts 0-2 Influenza Type A (PCR) NEGATIVE Influenza Type B (PCR) NEGATIVE RSV RNA Qual (PCR) NEGATIVE SARS-CoV-2 RNA (RT-PCR) NEGATIVE 04/20/24 05:45 WBC 11.6 H RBC 4.39 Hgb 13.0 Hct 41.0 MCV 93.4 MCH 29.6 MCHC 31.7 RDW 13.6 Plt Count 208 MPV 10.3 Immature Gran % (Auto) 0.4 Neut % (Auto) 80.5 H Lymph % (Auto) 11.6 L [place] % (Auto) 7.3 Eos % (Auto) 0.0 Baso % (Auto) 0.2 Lymph # (Auto) 1.3 [place] # (Auto) 0.8 Eos # (Auto) 0.0 Baso # (Auto) 0.0 Abs Immat Gran (auto) 0.05 H Absolute Neuts (auto) 9.3 H Absolute Nucleated RBC 0.000 Nucleated RBC % (auto) 0.0 Sodium 138 Potassium 5.1 D Chloride 107 Carbon Dioxide 20 L Anion Gap 16 BUN 12 Creatinine 1.03 Estim Creat Clear Calc 76.5 Estimated GFR 54 Random Glucose 129 H Lactic Acid Calcium 8.8 Total Bilirubin Direct Bilirubin AST ALT Alkaline Phosphatase Total Protein Albumin Hold Green Top Urine Color Urine Appearance Urine pH Ur Specific [place] Urine Protein Urine Glucose (UA) Urine Ketones Urine Blood Urine Nitrite Ur Leukocyte Esterase Urine RBC Urine WBC Ur Squamous Epith Cells Urine Bacteria Hyaline Casts Influenza Type A (PCR) Influenza Type B (PCR) RSV RNA Qual (PCR) SARS-CoV-2 RNA (RT-PCR) Airway Mallampati Class: III TM Dist: >3cm Neck ROM: Full Heart: RRR Lungs: CTA Assessment and Plan Assessment Anesthesia Assessment: Anesthesia Plan Discussed and Chart Reviewed Final Anesthetic Review Family History of Problems with Anesthesia: No History of Problems with Anesthesia: No NPO: Yes ASA Class: III and Emergency Final Preanesthetic Review: Meds/Allgs Chart Reviewed, Consent Obtained/Reviewed and Anes Risks/Benef Reviewed Patient Risk: Intermediate Procedure Risk: Intermediate Anesthetic Plan Anesthetic Plan: GA Disposition: Standard PACU
--- NOTE | 2024-04-20 16:25 | MHC.SHP ---
Pre-Procedural Eval Section A - 24 Hr Update-Section A only Date of Service: 04/20/24 The patient is an INPATIENT: Yes Changes since office visit: No Cold of Flu in the past 2 weeks, No New Medical Problems, No Changes in Medication and No Patient answered all questions The patient has been examined within 24 hours of the surgical procedure. The History & Physical has been completed within 30 days and I have reviewed it.: Yes Section B - Complete if H&P > 30 days Chief Complaint: Abd pain Details of Present Illness: cysto, right retrograde, ureteroscopy, laser, stent Relevant Family History (Specify if Yes): No Relevant Social History: None Present Medications: see Short Stay Collaborative assessment Medical History: No relevant PMH History of Previous Operations: Relevant previous surgery/procedure and date(s) Allergies: Allergies Allergy/AdvReac Type Severity Reaction Status Date / Time No Known Allergies Allergy Verified 04/20/24 15:59 Review of Systems Sugical H&P ROS: Negative: Constitution, Cardiovascular, Respiratory, Neurological, Psychiatric, Hem-Onc, Allergic/Immunologic, Gastrointestinal, Genitourinary, Musculoskeletal, Integumentary, Endocrine and Eyes/Ears/Nose/Throat Exam Surgical H&P Exam: Normal: HEENT, Normal: Heart, Normal: Lungs, Normal: Extremities, Normal: Abdomen, Normal: Skin and Normal: Neurological Plan Diagnosis/Plan: Unchanged I have reviewed the history and physical and performed a pertinent physical examination on my patient. No changes have occurred unless specified. Time Spent With Patient Time: Total time managing care of this patient today ____ minutes.
--- NOTE | 2024-04-20 17:04 | W.PM.OPN ---
Operative Note Operative Note Date of Service: 04/20/24 Narrative: PreOperative Diagnosis: Right ureteric stone with hydronephrosis Post Operative Diagnosis: Right ureteric stone with hydronephrosis Procedure: - cystoscopy, right retrograde - right dilatation of ureteric orifice under fluoroscopy - right ureteroscopy, laser lithotripsy, stone basketing - right stent placement Surgeon: Dr Joey Harper Anesthesia: General Indications for procedure: Presentation through emergency room with right ureteric stone with hydronephrosis and pyelonephritis Procedure: After informed consent was verified the patient was brought to the operating room and placed in a supine position. Anesthesia was administered per protocol. The patient was placed in a modified dorsal lithotomy position and prepped and draped in a sterile fashion. Safety pause time-out and side of surgery were confirmed. Images were available for review. Antibiotic administration confirmed. A 22 Vietnamese cystoscope was inserted per urethra. The urethra was without abnormality. The bladder was normal in its entirety. Both ureteric orifices were seen in normal position. The right ureteric orifice was cannulated and a retrograde examination was performed. Filling defects seen at junction between distal and middle 3rd of ureter . A Sensor guidewire was placed up to the level of the renal pelvis under fluoroscopy. The rigid cystoscope was removed. A Desi dilator was placed over the Sensor guidewire and used to dilate the ureteric orifice under fluoroscopy. The dilator was removed. The semi rigid ureteral scope was placed alongside the Sensor guidewire. Stone was encountered. Using a 365 micro holmium laser fiber the stone was broken into small pieces using a combination of hammer and dusting techiques. Stone fragments were removed from the ureter using a surecatch basket basket. Once the fragments were removed a decision was made to place a ureteric stent. Based on the height of the patient a 6 Fr x 22 cm stent was used. The string was removed from the stent prior to placement. A 6 Vietnamese by 22 cm double-J stent was placed into the renal pelvis and bladder under a combination of fluoroscopy and direct visualization. The symphisis pubis was used as a radiographic marker to release the stent and good coil was seen within the bladder confirming position Proximal positioning of the stent was confirmed using fluoroscopy. The bladder was emptied. The patient tolerated the procedure well and was extubated in the operating room. They were transferred in stable condition to the recovery area. Pathology: stones Drains: Double J stent as described above
[2024-04-20] MEDS: Acetaminophen 1,000 MG/100 ML PIGGYBACK 400 MG IV (17:16)
[2024-04-20] MEDS: Ketorolac Tromethamine 15 MG/ML VIAL IVPUSH (17:33)
[2024-04-20] MEDS: Phenazopyridine HCL 100 MG TABLET PO (17:33)
[2024-04-20] MEDS: cefTRIAXone sodium 2 GM VIAL IVPUSH (20:09)
[2024-04-20] MEDS: Melatonin 3 MG TABLET 6 MG PO (20:10)
[2024-04-21 04:00] VITALS: BP 97/58; PULSE 70; RESP 19; TEMP 36.4; O2SAT 100
[2024-04-21] MEDS: Acetaminophen 325 MG TABLET 650 MG PO ×2 (07:33→20:11)
[2024-04-21] MEDS: Pyridoxine HCl (Vitamin B6) 50 MG TABLET 100 MG PO (07:33)
[2024-04-21] MEDS: 0.9 % Sodium Chloride Flush 3 ML SYRINGE IVFLUSH ×2 (07:33→20:14)
[2024-04-21] MEDS: Cholecalciferol (Vitamin D3) 25 MCG TABLET PO (07:33)
[2024-04-21 07:34] VITALS: BP 124/61; PULSE 72; RESP 18; TEMP 36.4; O2SAT 98
[2024-04-21 09:18] LABS: Alanine Aminotransferase 46 U/L (0-31); Albumin Level 3.8 g/dL (3.5-5.0); Alkaline Phosphatase 91 U/L (39-117); Aspartate Amino Transferase 37 U/L (5-31); Bilirubin Direct 0.3 mg/dL (0.0-0.5); Bilirubin Total 0.5 mg/dL (0.0-1.0); Total Protein 8.1 g/dL (6.5-8.0)
--- NOTE | 2024-04-21 10:34 | HO.POSTANES ---
Post Anesthesia Evaluation Post Anesthesia Evaluation Date of Service: 04/21/24 Vital Signs: Vital Signs Temp Pulse Resp BP Pulse Ox O2 Del Method 04/21/24 07:34 97.5 F 72 18 124/61 98 Room Air 04/21/24 04:00 97.6 F 70 19 97/58 L 100 Room Air Anesthesia: General LMA Mental Status: Awake Pain Control: Satisfactory Nausea/Vomiting: None Hydration: Adequate Anesthesia-Related Issues: No Anes. Related Issues
--- NOTE | 2024-04-21 15:09 | HO.PM.IMPN ---
Subjective Subjective Date of Service: 04/21/24 Interval History: seen and examined this morning follow up for sepsis due to pyelonephritis feeling better today, no fever, no significant flank pain Review of Systems Review of Systems: Yes all other systems are reviewed and are negative Constitutional Constitutional: Denies chills and Denies fever(s) Physical Exam Vital Signs: Vital Signs: Last Vital Signs Temp 97.5 F 04/21/24 07:34 Pulse 72 04/21/24 07:34 Resp 18 04/21/24 07:34 BP 124/61 04/21/24 07:34 Pulse Ox 98 04/21/24 07:34 O2 Del Method Room Air 04/21/24 07:34 BMI result Body Mass Index 54.9 Const: General: cooperative, comfortable, alert and awake Nutritional Appearance: obese Orientation/consciousness: patient oriented x3 Resp: Effort & Inspection: normal respiratory effort, able to speak in complete sentences, no respiratory distress and no use of accessory muscles Cardio: Rate: regular rate GI: Inspection: No distended Palpation (GI): Soft to palpation : General: Yes no CVA tenderness Back/Spine/Pelvis: Back: no CVA tenderness Neuro: General: patient oriented x3, moves all extremities and CN's II-XI intact bilaterally Objective Data Active Medications Acetaminophen (Acetaminophen 325 Mg Tablet) 650 mg PO Q6H PRN PRN Reason: Pain, Mild 1-3,fever,headache Last Admin: 04/21/24 07:33 Dose: 650 mg Documented By: INGRID Calcium Carbonate (Calcium Carbonate 750 Mg Tab.Chew) 750 mg PO Q4H PRN PRN Reason: Heartburn Ceftriaxone Sodium (Ceftriaxone Sodium 2 Gm Vial) 2 gm IVPUSH Q24H [facility] Last Admin: 04/20/24 20:09 Dose: 2 gm Documented By: ZEINAB Magnesium Hydroxide (Milk Of Magnesia 30 Ml Oral.Susp) 30 ml PO DAILY PRN PRN Reason: Constipation Melatonin (Melatonin 3 Mg Tablet) 6 mg PO BEDTIME PRN PRN Reason: Insomnia Last Admin: 04/20/24 20:10 Dose: 6 mg Documented By: ZEINAB Morphine Sulfate (Morphine Sulfate 2 Mg/Ml Cartridge) 2 mg IVPUSH Q4H PRN; Protocol PRN Reason: Pain, Severe (Pain Scale 7-10) Naloxone HCl (Naloxone Hcl 0.4 Mg/Ml Vial) 0.04 mg IVPUSH Q5M PRN PRN Reason: Excessive sedation or RR < 8 Ondansetron HCl (Ondansetron Hcl 4 Mg/2 Ml Vial) 4 mg IVPUSH Q8H PRN PRN Reason: Nausea and Vomiting Oxycodone HCl (Oxycodone Hcl Immed Release 5 Mg Tablet) 5 mg PO Q4H PRN PRN Reason: Pain, Mild (Pain Scale 1-3) Pyridoxine HCl (Pyridoxine Hcl (Vitamin B6) 50 Mg Tablet) 100 mg PO DAILY [facility] Last Admin: 04/21/24 07:33 Dose: 100 mg Documented By: INGRID Sodium Chloride (0.9 % Sodium Chloride Flush 3 Ml Syringe) 3 ml IVFLUSH QSHIFT [facility] Last Admin: 04/21/24 07:33 Dose: 3 ml Documented By: INGRID Vitamin D (Cholecalciferol (Vitamin D3) 25 Mcg Tablet) 25 mcg PO DAILY [facility] Last Admin: 04/21/24 07:33 Dose: 25 mcg Documented By: INGRID Labs 04/20/24 05:45 04/20/24 05:45 Labs: Laboratory Results - last 24 hr 04/21/24 08:12 Total Bilirubin 0.5 Direct Bilirubin 0.3 AST 37 H ALT 46 H Alkaline Phosphatase 91 Total Protein 8.1 H Albumin 3.8 Microbiology Microbiology Results: Microbiology 04/20/24 Unknown Urine Culture - Preliminary Urine clean catch - Clean Catch Midstream Culture in progress. 04/20/24 00:49 Blood Culture - Preliminary Blood - Venous No growth after 24 hours. 04/20/24 00:49 Blood Culture - Preliminary Blood - Venous No growth after 24 hours. Assessment and Plan (1) Pyelonephritis: Status: Acute (2) Sepsis: Status: Acute (3) Ureterolithiasis: Status: Acute Plan This is a 59-year-old female with pertinent history of nephrolithiasis who presents to the emergency department for evaluation of flank pain, dysuria, fevers and chills. Severe sepsis due to acute pyelonephritis (on admission) met criteria with fever, tachycardia and tachypnea with elevated bilirubin -fever, tachycardia and tachypnea have resolved. continue IV ceftriaxone. blood cultures negative to date, urine culture pending LFTs trending down Obstructive right ureterolithiasis with hydroureteronephrosis 6mm obstructing stone Urology following> s/p cystoscopy, lithotripsy and right stent placement Outpatient follow-up with Urology for stent removal Elevated transaminases in the setting of sepsis Trending down Obesity. BMI 54.9 Discussed importance of weight management as this may be contributing to worsening of other comorbidities DVT prophylaxis: Mechanical devices Full code Quality Stroke Does the patient have a stroke diagnosis?: No VTE Prior VTE?: No VTE Risk Level:: Medical - moderate - high VTE Device Contraindication: Treatment Not Indicated VTE Drug Contraindication: N/A - Med Ordered
[2024-04-21 15:21] VITALS: BP 133/60; PULSE 88; RESP 18; TEMP 36.6; O2SAT 98
[2024-04-21 16:20] VITALS: O2SAT 97
[2024-04-21 20:00] VITALS: BP 121/60; PULSE 81; RESP 16; TEMP 36.6; O2SAT 98
[2024-04-21] MEDS: cefTRIAXone sodium 2 GM VIAL IVPUSH (20:13)
[2024-04-22 03:41] VITALS: BP 129/60; PULSE 67; RESP 16; TEMP 36.3; O2SAT 100
[2024-04-22 08:00] VITALS: BP 139/77; PULSE 67; RESP 18; TEMP 36.7; O2SAT 100
--- NOTE | 2024-04-22 08:03 | P.CDIM_ITS ---
PROVIDER RESPONSE TEXT: To clarify, the appropriate diagnosis supported by the clinical indicators: Morbid obesity QUERY TEXT: PHYSICIAN'S DOCUMENTATION REQUEST Date of Query: 04/22/2024 07:45 AM EST Patient Name: Carolyn Turcios Admit Date: 04/20/2024 Dear Savannah Sofia PA, A review of the medical record indicates additional documentation may be needed. Please review below and update the documentation accordingly. Clinical Indicators: Height: 5ft 2in Weight: 136.078kg BMI: 54.9 If possible, please provide an associated diagnosis related to the abnormal BMI, such as: Severe or Morbid Obesity With alveolar hypoventilation Severe or Morbid Obesity Without alveolar hypoventilation Morbid obesity Obesity Other (explain) Clinically unable to determine (explain) Thank you, Rebekah Hector, CCS, CDIS Use of terms such as suspected, likely, concern for, or probable (associated with a specific diagnosi s that is being evaluated, monitored, or treated as if it exists) are acceptable and can be coded in the inpatient se tting, when documented at the time of discharge. Please use your independent medical judgment in providing your response. THIS QUERY IS PART OF THE PERMANENT MEDICAL RECORD
[2024-04-22] MEDS: Cholecalciferol (Vitamin D3) 25 MCG TABLET PO (08:38)
[2024-04-22] MEDS: 0.9 % Sodium Chloride Flush 3 ML SYRINGE IVFLUSH (08:38)
[2024-04-22] MEDS: ondansetron HCL 4 MG/2 ML VIAL IVPUSH (08:38)
[2024-04-22] MEDS: Pyridoxine HCl (Vitamin B6) 50 MG TABLET 100 MG PO (08:38)
--- NOTE | 2024-04-22 15:02 | PM.DS ---
DS: Providers Provider Date of Service: 04/22/24 Date of admission: 04/20/24 03:05 Date of discharge: 04/22/24 Primary care physician: Mildred Alvarez MD Consults: 04/20/24 03:51 Consult to Urology Routine Consulting Provider: [facility] Reason for consultation: Obstructing right ureterolithiasis Attending physician on discharge: Joe James Discharging clinician: Savannah Sofia DS: Diagnosis Discharge Diagnosis (1) Pyelonephritis: Status: Acute (2) Sepsis: Status: Acute (3) Ureterolithiasis: Status: Acute DS: Summary Hospital Course Hospital Course: From H&P on the day of admission This is a 59-year-old female with pertinent history of nephrolithiasis who presents to the emergency department for evaluation of flank pain, dysuria, fevers and chills. Patient states her symptoms started 1 day prior to presentation. She has been having dysuria with fevers and chills. Also has been having right flank pain which is constant, nonprogressive, without any radiation. Has associated nausea and multiple episodes of nonbloody emesis. Endorses generalized malaise. Does have a history of kidney stones and UTI in the past. No chest pain, palpitations, shortness of breath, changes in bowel habits. In the emergency department, patient was found to be septic and urine concerning for UTI. Imaging with obstructive right ureterolithiasis and moderate hydroureteronephrosis. Severe sepsis due to acute pyelonephritis (on admission) met criteria with fever, tachycardia and tachypnea with elevated bilirubin -fever, tachycardia and tachypnea have resolved, white count trending down. has remained afebrile. Treated with IV ceftriaxone. blood cultures negative to date, urine culture growing gram negative rods, final results not back yet but patient has no history of recurrent UTIs or resistant bacteria in the past. She is eager to return home today, she understands that the final cuture results are not back. we will send with oral Ceftin. She will follow-up with Urology for stent removal in the office. Obstructive right ureterolithiasis with hydroureteronephrosis 6mm obstructing stone . Urology following> s/p cystoscopy, lithotripsy and right stent placement. Outpatient follow-up with Urology for stent removal Elevated transaminases in the setting of sepsis. Trending down Morbid obesity BMI 54.9. Weight loss encouraged Time Attestation Discharge Coordination Time (in mins): 35 Quality: Safe Use of Opioids Does Pt have an Active Cancer Diagnosis on the Problem List?: No Quality: Stroke Does the patient have a stroke diagnosis?: No Physical Exam Vital Signs: Vital Signs: Last Vital Signs Temp 98.1 F 04/22/24 08:00 Pulse 67 04/22/24 08:00 Resp 18 04/22/24 08:00 BP 139/77 04/22/24 08:00 Pulse Ox 100 04/22/24 08:00 O2 Del Method Room Air 04/22/24 08:00 BMI result Body Mass Index 54.9 Const: General: cooperative, comfortable, alert and awake Nutritional Appearance: obese Orientation/consciousness: patient oriented x3 Resp: Effort & Inspection: normal respiratory effort, able to speak in complete sentences, no respiratory distress and no use of accessory muscles Cardio: Rate: regular rate GI: Inspection: No distended Palpation (GI): Soft to palpation : General: Yes no CVA tenderness Back/Spine/Pelvis: Back: no CVA tenderness Neuro: General: patient oriented x3, moves all extremities and CN's II-XI intact bilaterally DS: Data Data Completed and Pending Pending studies at discharge: Pending at discharge 04/20/24 17:08 Surgical [PTH] Routine Labs on day of discharge: Preliminary micro results at discharge 04/20/24 Unknown Urine Culture - Preliminary Urine clean catch - Clean Catch Midstream Gram negative sree 04/20/24 00:49 Blood Culture - Preliminary Blood - Venous No growth after 48 hours. 04/20/24 00:49 Blood Culture - Preliminary Blood - Venous No growth after 48 hours. Discharge Plan Discharge Anticipated Discharge Date/Time: 04/22/24 15:08 Patient Disposition: Home, Self-Care Discharge Diagnosis: sepsis due to pyelonephritis and ureterolithiasis with 6 mm obstructing stone Referrals: Mildred Alvarez MD [Primary Care Provider] - 1 Week Joey Harper MD [Physician] - 4 Weeks Discharge Medications: New cefuroxime axetil 500 mg tablet 500 mg PO Q12H 10 Days Qty: 20 0RF No Action No Known Home Meds Discharge Orders: Discharge Order (Routine); Ordered 04/22/24 Ordered By: Savannah Sofia Activity on Discharge: As tolerated Stand Alone Forms: Patient Portal Discharge page Print Language: [place] Care Plan Goals: See below Health Concerns: Sepsis due to pyelonephritis, right obstructing stones status post lithotripsy and stent placement Plan of Treatment: Complete course of antibiotics as prescribed Call to schedule follow-up appointment with Urology for stent removal Assessment: See discharge summary
[2024-04-22 16:00] VITALS: BP 132/61; PULSE 91; RESP 18; TEMP 36.3; O2SAT 98
[2024-04-27 01:38] LABS: Stone Source RIGHT URETERAL STONE
== END 2024-04-22 17:11 | disposition home or self-care (01) | DRG 710 ==
LOC: HO.ED 04-20 02:46 → HO.EDOVER 04-20 03:10 → HO.IMC 04-20 17:40
PROVIDERS: Nurse Practitioner Family; Urology; Admitting Provider Student in an Organized Health Care Education/Training Program; Emergency Provider Emergency Medicine Emergency Medical Services; PCP Internal Medicine; Visit Provider Physician Assistant Medical
PROC: 0TC68ZZ Extirpation of Matter from Right Ureter, Via Natural or Artificial Opening Endoscopic (ICD-10-PCS; principal; 2024-04-20 16:00)
DX: A41.9 Sepsis, unspecified organism (principal); Z68.43 Body mass index [BMI] 50.0-59.9, adult; N13.6 Pyonephrosis; R65.20 Severe sepsis without septic shock; E66.01 Morbid (severe) obesity due to excess calories; Z71.3 Dietary counseling and surveillance; Z20.822 Contact with and (suspected) exposure to COVID-19; Z87.442 Personal history of urinary calculi; Z87.440 Personal history of urinary (tract) infections; Z79.899 Other long term (current) drug therapy
CPT/HCPCS: 0241U; 36415; 74177; 80048; 80053; 80076; 81001; 82248; 82365; 83605; 85025; 87040; 87086; 87088; 87186; 88300; 99284; C1758; C1769; C2617; J0131; J0696; J1100; J1596; J1885; J2003; J2250; J2371; J2405; J2704; J3010; Q9967

== ENCOUNTER → 2024-04-20 00:33 | Outpatient (BNV) | payer OTHER, SELFPAY | PROVIDERS: Admitting Provider Student in an Organized Health Care Education/Training Program; Emergency Provider Emergency Medicine Emergency Medical Services; PCP Internal Medicine; Visit Provider Radiology Diagnostic Radiology | DX: R10.11 Right upper quadrant pain (principal) | CPT/HCPCS: 74177 ==

== ENCOUNTER → 2024-04-20 03:05 | Outpatient (BNV) | payer OTHER, SELFPAY | PROVIDERS: Admitting Provider Student in an Organized Health Care Education/Training Program; Emergency Provider Emergency Medicine Emergency Medical Services; PCP Internal Medicine; Visit Provider Student in an Organized Health Care Education/Training Program | DX: N12 Tubulo-interstitial nephritis, not specified as acute or chronic (principal); A41.9 Sepsis, unspecified organism; N20.1 Calculus of ureter | CPT/HCPCS: 99232; 99239 ==

== ENCOUNTER → 2024-04-20 03:05 | Outpatient (BNV) | payer OTHER, SELFPAY | PROVIDERS: Admitting Provider Student in an Organized Health Care Education/Training Program; Emergency Provider Emergency Medicine Emergency Medical Services; PCP Internal Medicine; Visit Provider Urology | DX: N20.1 Calculus of ureter (principal); N13.30 Unspecified hydronephrosis | CPT/HCPCS: 52356; 74420; 99222 ==

== ENCOUNTER 2024-04-28 08:50 | Outpatient (AMB) | payer OTHER, SELFPAY ==
--- NOTE | 2024-04-28 09:39 | MHC.OFFVIS ---
Intake Visit Reasons: Stent Removal Intake Note: Patient is Present for Cystoscopy/Stent Removal Urology Med: None Antibiotic Allergy: None Blood Thinner: None URO- G Disposable Cystoscope lot: [id number] exp: 07/15/2026 Wrapper Stemmer Hand Required: No Accompanied by: Self / Same As Patient Allergies No Known Allergies Allergy (Verified 04/28/24 10:19) Medication List - Last Reconciled 04/28/24 by Edgar Soto MD cefuroxime axetil 500 mg PO Q12H cholecalciferol (vitamin D3) 25 mcg PO DAILY omeprazole 20 mg PO DAILY 30 days pyridoxine (vitamin B6) mg PO HPI Comments Details: 04/28/2024--here for stent removal, the patient was seen at [facility] [place] due to right flank pain and pyelonephritis, CT imaging at that time was notable for small bilateral renal calculi with a 6 mm right distal ureteral stone with hydronephrosis. Largest kidney stone left kidney upper pole and 9 mm. Bladder findings catering assistant with cystitis. The patient is post right ureteroscopy laser lithotripsy of distal ureteral stone with stent insertion. The patient is on antibiotics to complete treatment for pyelonephritis. Plan discussed left ESWL. Nephrology referral for nephrocalcinosis, multiple renal calculi. CTAP 04/20/24--Obstructive 6 mm distal right ureteric calculus with moderate upstream hydroureteronephrosis. Right renal parenchymal edema with delayed nephrograms and perinephric stranding. Similar-appearing parenchymal defect in the right upper and midpole kidney. Innumerable bilateral subcentimeter renal calculi largest in the left upper pole measuring 9 mm. Circumferential bladder wall thickening. 12/17/23--Carolyn is a 58-year-old female who is here for follow up for kidney stones. She does get occasional kidney discomfort denies blood in the urine. She states she had lithotripsy done several years ago about 1994. She has had urinary infections in the past but denies dysuria at this time. Discussed further evaluation - 24 hr urine. 09/03/23--I have reviewed the CT abdomen and pelvis without contrast dated 08/05/2023 the images were reviewed with the patient. There are multiple bilateral kidney stones largest in the left lower pole. There is scarring of the right kidney. The patient denies renal colic or gross hematuria. I have discussed further evaluation with 24 hour urine collection. Discussed treatment management lithotripsy versus conservative monitoring of the kidneys. 05/25/23--Carolyn is a 58-year-old female who is here as a new patient evaluation for kidney stones. She states she had lithotripsy done several years ago about 1994. She does get occasional kidney discomfort denies blood in the urine. She has had urinary infections in the past but denies dysuria at this time. I reviewed with the patient kidney ultrasound that resulted January 2023. Bilateral kidney stones and right renal scarring. I have discussed further evaluation with CT abdomen/pelvis without IV contrast. I have discussed at length diet modification to decrease risk of forming more kidney stones. I have discussed low oxalate diet and specific foods to avoid including certain green leafy vegetables, chocalate, nuts, tea, beets, rubarb; low sodium, decreased use of animal protein and the importance of hydration drinking up to 2-2.5 liters of fluids and use of adding lemon to water to increase citrate in the diet. A pamphlet is also provided today. I will start her on vitamin B6 100 mg daily. Urinalysis--2+ leukocytes 1+ blood, urine culture sent. [facility] Medical History Breast density Surgical History H/O lithotripsy Social History Housing: House Are you a primary manager medicare marketing to a significant other at home: No Do you presently have visiting nurse or other home services: No Alcohol intake: never Patient Tobacco Use Status: Never used Tobacco service: No Female Reproductive History Menstrual Age of Menarche: 10 Review of Systems Const All systems reviewed & are unremarkable except as noted in HPI and below Reports no additional complaints Eyes Reports no additional complaints ENT Reports no additional complaints Card Reports no additional complaints Resp Reports no additional complaints GI Reports no additional complaints Reports as per HPI Musc Reports no additional complaints Skin/Breast Reports system reviewed and no additional complaints, except as documented Neuro Reports no additional complaints Psych Reports no additional complaints Endo Reports no additional complaints Roshan/Lymph Reports no additional complaints Aller/Immun Reports no additional complaints Office Procedures Cystoscopy Consent Discussed risk and benefit or proposed procedure with the patient. Information consent for procedure given to the patient. Discussed technical aspects, risks, benefits and alternatives in full. Addressed all of the patient's questions and concerns regarding the procedure. The patient demonstrated knowledge and understanding. They wish to proceed with this procedure. Preparation The patient was prepped in the usual manner. A cadd manager was present and in the room. Genitalia was prepped with betadine solution in a sterile manner. Lidocaine Jelly 2% was placed into the urethra and 16Fr flexible Olympus cystoscope was inserted into the meatus after adequate lubrication. Procedure Time out per protocol performed. Bladder Inspection Cystoscopy findings: mild edema ureteral orifice which is expected, distal end of ureteral stent visualized. The grasping forceps were used and the stent was removed without difficulty. [id number] with stent removal DISPOSABLE SCOPE URO-G FLEXIBLE SCOPE Procedure code (CPT) selection complete Office Meds lidocaine HCl 2 % mucosal jelly in applicator Performing Provider: Edgar Soto MD Performing Location[facility] [place] [facility] Administered by: Jasbir Olson LPN on 04/28/24 10:40 Dose Route Admin Location Dispensed Lot Number Expiration Date [place] [employer] [place] Code Enforcement Officer 10 mL intra-urethral 20 mL naproxen 500 mg tablet Performing Provider: Edgar Soto MD Performing Location: [facility] [place] [facility] Administered by: Jasbir Olson LPN on 04/28/24 10:40 Dose Route Admin Location Dispensed Lot Number Expiration Date NDC Animal Park Code Enforcement Officer 500 mg PO 1 tab ciprofloxacin HCl 500 mg tablet Performing Provider: Edgar Soto MD Performing Location: [facility] [place] [facility] Administered by: Jasbir Olson LPN on 04/28/24 10:40 Dose Route Admin Location Dispensed Lot Number Expiration Date NDC [employer] [place] Code Enforcement Officer 500 mg PO 1 tab Results AMB Urinalysis, Automated UA Leukoctes 500 Anya/uL Last Edit by JULIANA Clancy on 04/28/24 10:43 UA Nitrite Negative Last Edit by JULIANA Clancy on 04/28/24 10:43 UA Urobilinogen 0.2 mg/dL Last Edit by JULIANA Clancy on 04/28/24 10:43 UA Protein 15 mg/dL Last Edit by Michelle Burns, RMA on 04/28/24 10:43 UA pH 6.5 Last Edit by Michelle Chadwickro, RMA on 04/28/24 10:43 UA Blood 80 Medardo/uL Last Edit by Michelle Chadwickro, RMA on 04/28/24 10:43 UA Specific [place] 1.010 Last Edit by Michelle Chadwickro, RMA on 04/28/24 10:43 UA Ketone Negative Last Edit by Michelle Chadwickro, RMA on 04/28/24 10:43 UA Bilirubin 0 mg/dL Last Edit by Michelle Chadwickro, RMA on 04/28/24 10:43 UA Glucose 0 mg/dL Last Edit by Michelle Chadwickro, RMA on 04/28/24 10:43 Results Reviewed Results Reviewed: Laboratory Last Values Urine pH (Auto) 6.5 04/28/24 10:37 Specific [place] (Auto) 1.010 04/28/24 10:37 Urine Protein (Auto) 15 mg/dL 04/28/24 10:37 Glucose (UA)(Auto) 0 mg/dL 04/28/24 10:37 Urine Ketones (Auto) Negative 04/28/24 10:37 Urine Blood (Auto) 80 Medardo/uL 04/28/24 10:37 Urine Nitrite (Auto) Negative 04/28/24 10:37 Urine Bilirubin (Auto) 0 mg/dL 04/28/24 10:37 Urine Urobilinogen (Auto) 0.2 mg/dL 04/28/24 10:37 Leukocyte Esterase (Auto) 500 Anya/uL 04/28/24 10:37 RAMONA: 04/20/24 STATUS: COMP REQ : [id number] RECD: 04/21/[address] [facility] [address]: Joey Harper MD COMP: 04/27/248 ENTERED: 04/21/[address] [facility] [address]: Mildred Alvarez MD ORDERED: Kidney Stone QUERIES: Kidney Stone Source: [id number] Test Result Flag Reference Component 1 SEE NOTE Carbonate Apatite (Dahllite) 100% Stone Weight 0.055 g This test was developed and its analytical performance characteristics have been determined by [employer]. It has not been cleared or approved by FDA. This assay has been validated pursuant to the CLIA regulations and is used for clinical purposes. THIS TEST WAS PERFORMED AT: [employer] [address] [place] [address] BRENTON YE MD,PHD,CARLOS MANUEL Stone Source RIGHT URETERAL STONE Date of Service: 04/20/24 CLINICAL HISTORY: R flank pain, RUQ RLQ TTP CT abdomen and pelvis with contrast Comparison: CT/SR - CT ABDOMEN PELVIS W IV CON - 01/16/24 13:22 EST Findings: Small hiatal hernia. Hepatomegaly with steatosis. Obstructive 6 mm distal right ureteric calculus with moderate upstream hydroureteronephrosis. Right renal parenchymal edema with delayed nephrograms and perinephric stranding. Similar-appearing parenchymal defect in the right upper and midpole kidney. Innumerable bilateral subcentimeter renal calculi largest in the left upper pole measuring 9 mm. No hydronephrosis on the left. No bowel obstruction, pneumoperitoneum, or pneumatosis. Scattered colonic diverticulosis without diverticulitis or colitis. Normal appendix. Circumferential bladder wall thickening. No acute fracture. IMPRESSION: 1. Obstructive 6 mm distal right ureteric calculus with moderate upstream hydroureteronephrosis. 2. Circumferential bladder wall thickening may be related to degree of underdistention or mild cystitis. Date of Service: 08/05/23 CT ABDOMEN AND PELVIS WITHOUT CONTRAST CLINICAL INFORMATION: Renal calculus. COMPARISON: Renal ultrasound dated 01/14/2023. TECHNIQUE: Multidetector volumetric imaging was performed from the superior aspect of the liver through the pubic symphysis. Sagittal and coronal reformatted images were obtained on the technologist's workstation. This CT examination was performed using dose optimization techniques as appropriate, variously including the following: *Automated exposure control *Adjustment of mA and/or kV according to patient size (this includes techniques or standardized protocols for targeted exams where dose is matched to indication/reason for exam; i.e. extremities or head) *Use of iterative reconstruction technique DLP: 551 mGy-cm FINDINGS: LUNG BASES: The visualized lung bases are unremarkable. LIVER, GALLBLADDER, AND BILIARY TREE: The liver is normal in size, shape, and attenuation. 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 No focal hepatic lesion or biliary ductal dilatation is present. The gallbladder is unremarkable with no evidence of radiopaque gallstones, gallbladder wall thickening, or obvious pericholecystic inflammatory changes. PANCREAS: Unremarkable. SPLEEN: Unremarkable. ADRENAL GLANDS: Unremarkable. KIDNEYS AND URETERS: The kidneys are normal in size, shape, and attenuation. 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 There are extensive bilateral renal calculi. The largest on the right include a 5 mm interpolar calculus and an 8 mm lower pole calculus (5:78). The larger calculi within the left kidney are situated at the upper pole measuring 1.1 cm and at the lower pole measuring 0.9 cm (5:93 and 76). No ureteric calculus is seen, and there is no bilateral hydronephroureter. There is no significant perinephric stranding. BLADDER: Unremarkable. GASTROINTESTINAL TRACT: There is mild diverticulosis, without acute diverticulitis. No bowel obstruction, free intraperitoneal air or abscess is seen. There is no focal bowel wall thickening. The vermiform appendix appears normal. ABDOMINAL WALL: There is a small fat-containing umbilical hernia. A small fat-containing left inguinal hernia is seen. LYMPH NODES: Normal. VASCULAR: Unremarkable. PELVIC VISCERA: The uterus and adnexa are unremarkable. OSSEOUS STRUCTURES: Unremarkable. IMPRESSION: 1. There are extensive bilateral renal calculi, as detailed. No ureteric calculus or obstructive uropathy is seen bilaterally. 2. There is mild diverticulosis, without diverticulitis. 3. There are small fat-containing umbilical and left inguinal hernias. Assessment & Plan Assessment & Plan (1) Bilateral kidney stones: Code(s): N20.0 - Calculus of kidney Category: Medical (2) Nephrocalcinosis: Code(s): E83.59 - Other disorders of calcium metabolism; N29 - Other disorders of kidney and ureter in diseases classified elsewhere Category: Medical Plan The patient is on antibiotics to complete treatment for pyelonephritis. Plan discussed left ESWL. Nephrology referral for nephrocalcinosis, multiple renal calculi. Orders: Orders AMB Urinalysis Automated Today Z13.9 - Encounter for screening, unspecified AMB Cystoscopy Today N20.0 - Calculus of kidney Referrals Nephrology Referral E83.59 - Other disorders of calcium metabolism, N20.0 - Calculus of kidney, N29 - Other disorders of kidney and ureter in diseases classified elsewhere Patient Instructions: The patient had an opportunity to ask questions regarding treatment plan. The patient expressed understanding and agreement with the above treatment plan. The patient is aware they should contact our office by phone for worsening of their current condition or the appearance of new symptoms. Compliance is encouraged with any medications and followup testing that is ordered. It is a privilege to be allowed the opportunity to participate in the urologic care of your patient. If you have any questions or concerns regarding treatment for the above conditions please do not hesitate to contact me. The office telephone contact is [phone]. This note is constructed in part using voice recognition software. While every effort has been made to ensure accuracy payroll accounting clerk errors may have been included. Yours sincerely, Edgar Soto MD Coding Level of Care Code Est Pt Level 4 (75918) Diagnoses Bilateral kidney stones N20.0 Nephrocalcinosis E83.59; N29 CPT Codes Cystoscopy - CPT: 96810-[id number] with stent removal ([id number])
== END 2024-04-28 11:14 | disposition home or self-care (01) ==
PROVIDERS: PCP Internal Medicine; Visit Provider Urology
DX: N20.0 Calculus of kidney (principal); Z96.0 Presence of urogenital implants; Z13.9 Encounter for screening, unspecified
CPT/HCPCS: 52310; 99214

== ENCOUNTER → 2024-04-28 08:50 | Outpatient (BNVA) | payer OTHER, SELFPAY | PROVIDERS: PCP Internal Medicine; Visit Provider Urology | DX: N20.0 Calculus of kidney (principal); E83.59 Other disorders of calcium metabolism; N29 Other disorders of kidney and ureter in diseases classified elsewhere | CPT/HCPCS: 52310; 81003; 99212 ==

== ENCOUNTER 2024-05-06 11:22 | Outpatient (AMB) | payer OTHER, SELFPAY ==
--- NOTE | 2024-05-06 11:30 | HO.NEPHOV ---
Vital Signs 05/06/24 11:32 Height 5 ft 2 in Weight 211 lb 8 oz BMI 38.7 BP 130/70 Blood Pressure Location Lt brachial Position Sitting Pulse 115 H Pulse Source Pulse Oximeter Pulse Oximetry (%) 97 Oxygen Delivery Method Room Air Intake Visit Reasons: INP: Calculus of kidney/calcium metabolism Taxi Dancer Required: No Accompanied by: Self / Same As Patient Allergies No Known Allergies Allergy (Verified 05/06/24 11:31) HPI Comments Details: I had the privilege of seeing Carolyn who is a 59-year-old female with H/O kidney stones. She states she had lithotripsy done several years ago about 1994. She does get occasional flank discomfort but denies blood in the urine. She has had urinary infections in the past but denies dysuria. She is known to have bilateral kidney stones as well as right renal scarring. She has seen Urologist who has suggested low oxalate diet , keep low sodium diet , decreased use of animal protein and the importance of hydration drinking up to 2-2.5 liters of fluids and use of adding lemon to water to increase citrate in the diet. She recently had right flank pain and pyelonephritis. CT imaging at that time was notable for small bilateral renal calculi with a 6 mm right distal ureteral stone with hydronephrosis. Largest kidney stone was in the left kidney upper pole around 9 mm. She underwent right ureteroscopy laser lithotripsy of distal ureteral stone with stent insertion. She has no family H/O medullary nephrocalcinosis.Her renal function has been normal. She is not hypertensive or diabetic. She is trying to maintain good diet and keep up with hydration . [facility] Medical History Breast density Surgical History H/O lithotripsy Social History Housing: House Are you a primary critical care nurse practitioner to a significant other at home: No Do you presently have visiting nurse or other home services: No Alcohol intake: never Patient Tobacco Use Status: Never used Tobacco service: No Female Reproductive History Menstrual Age of Menarche: 10 Review of Systems Const All systems reviewed & are unremarkable except as noted in HPI and below Physical Exam Vital Signs: Last Vital Signs Pulse 115 H 02/28/25 11:32 BP 130/70 05/06/24 11:32 Pulse Ox 97 05/06/24 11:32 Oxygen Delivery Method Room Air 05/06/24 11:32 BMI result Body Mass Index 38.7 Const General: comfortable and no acute distress Orientation/consciousness: patient oriented x3 HEENT Head: Yes normocephalic Mouth: Normal oral and palatal mucosa present Eyes EOM: EOMs intact bilaterally Neck Neck: Yes supple Resp Auscultation: clear to auscultation bilaterally Cardio Jugular venous distension: no JVD Rate: regular rate GI Palpation (GI): Soft to palpation Auscultation: normal bowel sounds General: Yes no CVA tenderness Back/Spine/Pelvis Back: no CVA tenderness Skin General skin exam: no rashes or lesions noted Neuro General: patient oriented x3 and moves all extremities Extrem General: Yes no pedal edema Results Reviewed Nephrology Results: Hgb 13.0 g/dl (12.0-16.0) 04/20/24 WBC 11.6 X10*3/uL (4.8-10.8) H 04/20/24 Plt Count 208 X10*3/uL (160-400) 04/20/24 Sodium 138 mmol/L (135-145) 04/20/24 Potassium 5.1 mmol/L (3.3-5.1) 04/20/24 Chloride 107 mmol/L (96-108) 04/20/24 Carbon Dioxide 20 mmol/L (22-29) L 04/20/24 BUN 12 mg/dL (9-16) 04/20/24 Creatinine 1.03 mg/dL (0.5-1.4) 04/20/24 Calcium 8.8 mg/dL (8.4-10.2) 04/20/24 Urine Protein 100 (2+) mg/dL (Neg-Trace) H 04/20/24 Assessment & Plan Assessment & Plan (1) Nephrocalcinosis: Code(s): E83.59 - Other disorders of calcium metabolism; N29 - Other disorders of kidney and ureter in diseases classified elsewhere Category: Medical Plan Low oxalate diet , keep low sodium diet , decreased use of animal protein and reiterated the importance of hydration drinking up to 2-2.5 liters of fluids and use of adding lemon to water to increase citrate in the diet. I have ordered 24 hour urine studies. I plan to initiate her on HCTZ and or K citrate after reviewing data. All questions answered. She has a low oxalate diet sheet. F/U given Orders: Orders Sodium, 24Hr Urine Group 05/06/24 E83.59 - Other disorders of calcium metabolism, N29 - Other disorders of kidney and ureter in diseases classified elsewhere Oxalate, 24 Hr 05/06/24 E83.59 - Other disorders of calcium metabolism, N29 - Other disorders of kidney and ureter in diseases classified elsewhere Uric Acid, 24Hr Urine Group 05/06/24 E83.59 - Other disorders of calcium metabolism, N29 - Other disorders of kidney and ureter in diseases classified elsewhere Calcium, 24 Hr Ur 05/06/24 E83.59 - Other disorders of calcium metabolism, N29 - Other disorders of kidney and ureter in diseases classified elsewhere Citric Acid 24hr Urine 05/06/24 E83.59 - Other disorders of calcium metabolism, N29 - Other disorders of kidney and ureter in diseases classified elsewhere Coding Level of Care Code New Pt Level 4 (85624) Diagnoses Nephrocalcinosis E83.59; N29
[2024-05-06 11:32] VITALS: BP 130/70; PULSE 115; O2SAT 97; BMI 38.7
== END 2024-05-06 11:54 | disposition home or self-care (01) ==
PROVIDERS: PCP Internal Medicine; Referring Provider Urology; Visit Provider Internal Medicine Nephrology
DX: E83.59 Other disorders of calcium metabolism (principal); N29 Other disorders of kidney and ureter in diseases classified elsewhere
CPT/HCPCS: 99204

== ENCOUNTER → 2024-05-06 11:22 | Outpatient (BNVA) | payer OTHER, SELFPAY | PROVIDERS: PCP Internal Medicine; Referring Provider Urology; Visit Provider Internal Medicine Nephrology | DX: E83.59 Other disorders of calcium metabolism (principal); N29 Other disorders of kidney and ureter in diseases classified elsewhere | CPT/HCPCS: 99202 ==

== ENCOUNTER 2024-05-30 12:13 | Outpatient (REF) | payer OTHER, SELFPAY ==
[2024-05-30 13:21] LABS: Total Volume 24 Hour Urine 1875 mL
[2024-05-30 13:25] LABS: Creatinine, 24Hr Urine 0.9 G/Day (1.0-2.0); Creatinine, mg/dL 48.57; Sodium 24 Hr Urine 50.6 mmol/Day (40-220)
[2024-05-30 13:30] LABS: Creatinine, mg/dL 50.87; Uric Acid, 24 Hr Urine 264.4 mg/Day (250-750); Uric Acid, mg/dL 14.1 mg/dL
[2024-06-03 04:14] LABS: 24hr Urine Total Volume 1875 mL; Oxalic Acid 24 Urine 15.7 mg/24 h (3.6-38.0)
[2024-06-04 15:19] LABS: 24hr Urine Total Volume 1875 mL; Citric Acid, 24hr Urine 116 mg/24 h (100-1300); Citric Acid/Creat Ratio 24U 122 mg/g creat (180-1070); Creatinine, 24U 0.95 g/24 h (0.50-2.15)
[2024-06-09 00:53] LABS: Calcium, 24 Hr Urine 68 mg/24 h; Calcium/Creatinine Ratio 71 mg/g creat (30-275); Creatinine 24Hr Urine 0.96 g/24 h (0.50-2.15)
== END 2024-05-30 12:14 | disposition home or self-care (01) ==
LOC: HO.LNP 12:13
PROVIDERS: Visit Provider Internal Medicine Nephrology
DX: E83.59 Other disorders of calcium metabolism (principal); N29 Other disorders of kidney and ureter in diseases classified elsewhere
CPT/HCPCS: 82340; 82507; 83945; 84300; 84560

== ENCOUNTER 2024-06-03 08:48 | Outpatient (AMB) | payer OTHER, SELFPAY ==
--- NOTE | 2024-06-03 09:41 | HO.NEPHOV_ITS ---
Vital Signs 06/03/24 09:42 Height 5 ft 2 in Weight 212 lb 6 oz BMI 38.8 BP 102/70 Blood Pressure Location Rt brachial Position Sitting Pulse 83 Pulse Source Pulse Oximeter Pulse Oximetry (%) 98 Oxygen Delivery Method Room Air Intake Visit Reasons: Nephrocalcinosis- Conf Staff Nuclear Medicine Technologist Required: No Accompanied by: Self / Same As Patient Allergies No Known Allergies Allergy (Verified 06/03/24 09:42) HPI Comments Details: Carolyn is a 59-year-old female whom I saw in follow up for H/O kidney stones. She states she had lithotripsy done several years ago about 1994. She does get occasional flank discomfort but denies blood in the urine. She has had urinary infections in the past but denies dysuria. She is known to have bilateral kidney stones as well as right renal scarring. She has seen Urologist who has suggested low oxalate diet , keep low sodium diet , decreased use of animal protein and the importance of hydration drinking up to 2-2.5 liters of fluids and use of adding lemon to water to increase citrate in the diet. She recently had right flank pain and pyelonephritis. CT imaging at that time was notable for small bilateral renal calculi with a 6 mm right distal ureteral stone with hydronephrosis. Largest kidney stone was in the left kidney upper pole around 9 mm. She underwent right ureteroscopy laser lithotripsy of distal ureteral stone with stent insertion. She has no family H/O medullary nephrocalcinosis.Her renal function has been normal. She is not hypertensive or diabetic. She is trying to maintain good diet and keep up with hydration. [facility] Medical History Breast density Surgical History H/O lithotripsy Social History Housing: House Are you a primary customer care team coach to a significant other at home: No Do you presently have visiting nurse or other home services: No Alcohol intake: never Patient Tobacco Use Status: Never used Tobacco service: No Female Reproductive History Menstrual Age of Menarche: 10 Review of Systems Const All systems reviewed & are unremarkable except as noted in HPI and below Physical Exam Vital Signs: Last Vital Signs Pulse 83 06/03/24 09:42 BP 102/70 06/03/24 09:42 Pulse Ox 98 06/03/24 09:42 Oxygen Delivery Method Room Air 06/03/24 09:42 BMI result Body Mass Index 38.8 Const General: comfortable and no acute distress Orientation/consciousness: patient oriented x3 HEENT Head: Yes normocephalic Mouth: Normal oral and palatal mucosa present Eyes EOM: EOMs intact bilaterally Neck Neck: Yes supple Resp Auscultation: clear to auscultation bilaterally Cardio Jugular venous distension: no JVD Rate: regular rate GI Palpation (GI): Soft to palpation Auscultation: normal bowel sounds General: Yes no CVA tenderness Back/Spine/Pelvis Back: no CVA tenderness Skin General skin exam: no rashes or lesions noted Neuro General: patient oriented x3 and moves all extremities Extrem General: Yes no pedal edema Results Reviewed Nephrology Results: Hgb 13.0 g/dl (12.0-16.0) 04/20/24 WBC 11.6 X10*3/uL (4.8-10.8) H 04/20/24 Plt Count 208 X10*3/uL (160-400) 04/20/24 Sodium 138 mmol/L (135-145) 04/20/24 Potassium 5.1 mmol/L (3.3-5.1) 04/20/24 Chloride 107 mmol/L (96-108) 04/20/24 Carbon Dioxide 20 mmol/L (22-29) L 04/20/24 BUN 12 mg/dL (9-16) 04/20/24 Creatinine 1.03 mg/dL (0.5-1.4) 04/20/24 Calcium 8.8 mg/dL (8.4-10.2) 04/20/24 Urine Protein 100 (2+) mg/dL (Neg-Trace) H 04/20/24 Assessment & Plan Assessment & Plan (1) Nephrocalcinosis: Code(s): E83.59 - Other disorders of calcium metabolism; N29 - Other disorders of kidney and ureter in diseases classified elsewhere Category: Medical Plan Low oxalate diet , keep low sodium diet , decreased use of animal protein and reiterated the importance of hydration drinking up to 2-2.5 liters of fluids and use of adding lemon to water to increase citrate in the diet. I have ordered 24 hour urine studies ( some pending). I started her on HCTZ 12.5 mg daily ( common side effects expalined). I may add K citrate after reviewing data. All questions answered. She has a low oxalate diet sheet. F/U given Orders: Orders Creatinine 3 Months E83.59 - Other disorders of calcium metabolism, N29 - Other disorders of kidney and ureter in diseases classified elsewhere Blood Urea Nitrogen 3 Months E83.59 - Other disorders of calcium metabolism, N29 - Other disorders of kidney and ureter in diseases classified elsewhere Electrolytes 3 Months E83.59 - Other disorders of calcium metabolism, N29 - Other disorders of kidney and ureter in diseases classified elsewhere Calcium 3 Months E83.59 - Other disorders of calcium metabolism, N29 - Other disorders of kidney and ureter in diseases classified elsewhere Medications: New hydrochlorothiazide 12.5 mg PO DAILY 90 tabs 3RF Changed From omeprazole 20 mg PO DAILY 30 days 30 tabs 0RF To omeprazole 20 mg PO DAILY 90 days 90 tabs 3RF Coding Level of Care Code Est Pt Level 4 (76279) Diagnoses Nephrocalcinosis E83.59; N29
[2024-06-03 09:42] VITALS: BP 102/70; PULSE 83; O2SAT 98; BMI 38.8
== END 2024-06-03 10:08 | disposition home or self-care (01) ==
LOC: HO.HKA 08:48
PROVIDERS: PCP Internal Medicine; Visit Provider Internal Medicine Nephrology
DX: E83.59 Other disorders of calcium metabolism (principal); N29 Other disorders of kidney and ureter in diseases classified elsewhere
CPT/HCPCS: 99214

== ENCOUNTER → 2024-06-03 08:48 | Outpatient (BNVA) | payer OTHER, SELFPAY | PROVIDERS: PCP Internal Medicine; Visit Provider Internal Medicine Nephrology | DX: E83.59 Other disorders of calcium metabolism (principal); N29 Other disorders of kidney and ureter in diseases classified elsewhere | CPT/HCPCS: 99212 ==

== ENCOUNTER 2024-07-13 08:38 | Day surgery (SDC) | payer OTHER, SELFPAY ==
[2024-07-11 10:12] VITALS: BMI 38.8
--- NOTE | 2024-07-12 08:45 | P.CONAN_ITS ---
HPI - Anesthesia Eval Consult details Narrative: 59yo F for Left Lithotripsy ESW s/p cysto 04/2024 with [facility]-LMA 3 PMFSH Active Problems Active Problems: All Active Problems Nephrocalcinosis (Acute) Ureterolithiasis (Acute) Sepsis (Acute) Pyelonephritis (Acute) Renal scarring (Acute) Bilateral kidney stones (Acute) Kidney stone (Acute) Cervical cancer screening (Acute) Obesity, morbid, BMI 40.0-49.9 (Acute) Well woman exam with routine gynecological exam (Acute) Breast density (Acute) Past Medical History Medical History (Updated 07/11/24 @ 10:08 by Gabbi Ross RN) Kidney stone Breast density Family History Family history of problems with anesthesia: No Surgical History Surgical History (Updated 07/11/24 @ 10:11 by Gabbi Ross RN) Hx of cystoscopy H/O lithotripsy History of Problems with Anesthesia: No Social History Social History Housing: House Are you a primary care management specialist to a significant other at home: No Do you presently have visiting nurse or other home services: No Alcohol intake: never Patient Tobacco Use Status: Never used Tobacco service: No Meds Allergies Allergy/AdvReac Type Severity Reaction Status Date / Time No Known Allergies Allergy Verified 06/03/24 09:42 Home Medications ?Medication ?Instructions ?Recorded ?Confirmed ?Last Taken ?Type cholecalciferol (vitamin D3) 25 25 mcg PO DAILY 04/28/24 07/11/24 Unknown History mcg (1,000 unit) tablet pyridoxine (vitamin B6) 100 mg 100 mg PO DAILY 05/06/24 07/11/24 Unknown History tablet Exam Height,Weight and Vital Signs: Height 5 ft 2 in Weight 96.162 kg Assessment and Plan Assessment Anesthesia Assessment: Chart Reviewed Final Anesthetic Review Family History of Problems with Anesthesia: No History of Problems with Anesthesia: No
--- NOTE | ~2024-07-13 | XR_ITS ---
CLINICAL HISTORY: pre left ESWL 1 view abdomen Comparison: None Findings: No significant bowel distention demonstrated. No significant increased stool noted. Multiple bilateral renal stones. No acute bony abnormalities. Impression: Multiple bilateral renal stones This document has been electronically signed by: Oh Mack MD on 07/13/2024 19:58:15
[2024-07-13 10:28] VITALS: BMI 39.5
[2024-07-13 10:53] VITALS: BP 142/70; PULSE 86; RESP 16; TEMP 36.9; O2SAT 98
--- NOTE | 2024-07-13 10:53 | HO.ANESPROP2 ---
[facility] Active Problems Active Problems: All Active Problems Nephrocalcinosis (Acute) Ureterolithiasis (Acute) Sepsis (Acute) Pyelonephritis (Acute) Renal scarring (Acute) Bilateral kidney stones (Acute) Kidney stone (Acute) Cervical cancer screening (Acute) Obesity, morbid, BMI 40.0-49.9 (Acute) Well woman exam with routine gynecological exam (Acute) Breast density (Acute) Past Medical History Medical History Kidney stone Breast density Functional capacity: independent ambulation Patient : No Family History Family history of problems with anesthesia: No Surgical History Surgical History Hx of cystoscopy H/O lithotripsy History of Problems with Anesthesia: No Social History Social History Housing: House Are you a primary intensive care medicine specialist to a significant other at home: No Do you presently have visiting nurse or other home services: No Alcohol intake: never Patient Tobacco Use Status: Never used Tobacco Use of substances other than those prescribed or required for medical reasons: No Are you DNR?: No Advance Directives: No Advance Directives Information Provided: Yes : No Poor oral hygiene: No service: No Meds Allergies Allergy/AdvReac Type Severity Reaction Status Date / Time No Known Allergies Allergy Verified 06/03/24 09:42 Active Medications: Current Medications Lactated Ringer's (Lr) 1,000 mls @ 100 mls/hr IVCONT .Q10H KONRAD Home Medications ?Medication ?Instructions ?Recorded ?Confirmed ?Last Taken ?Type cholecalciferol (vitamin D3) 25 25 mcg PO DAILY 04/28/24 07/11/24 Unknown History mcg (1,000 unit) tablet pyridoxine (vitamin B6) 100 mg 100 mg PO DAILY 05/06/24 07/11/24 Unknown History tablet Exam Height,Weight and Vital Signs: Height 5 ft 2 in Weight 97.9 kg Airway Mallampati Class: III TM Dist: >3cm Neck ROM: Full Heart: RRR Lungs: CTA Assessment and Plan Assessment Anesthesia Assessment: Anesthesia Plan Discussed and Chart Reviewed Final Anesthetic Review Family History of Problems with Anesthesia: No History of Problems with Anesthesia: No NPO: Yes ASA Class: II Final Preanesthetic Review: Consent Obtained/Reviewed and Anes Risks/Benef Reviewed Patient Risk: Low Procedure Risk: Low Anesthetic Plan Anesthetic Plan: GA Disposition: Standard PACU
[2024-07-13] MEDS: Lactated Ringers 1,000 ML 100 ML IVCONT (11:07)
--- NOTE | 2024-07-13 11:41 | W.PM.OPN ---
Operative Note Operative Note Date of Service: 07/13/24 Narrative: PreOperative Diagnosis:? ? Left renal calculi Post Operative Diagnosis:?Left renal calculi Procedure:?Left ESWL Surgeon:?Dr Edgar Soto Anesthesia:? General Indications for procedure: The patient understands there is a risk of bruising or hematoma to the kidney, infection, and stone migration following the procedure and subsequent intervention may be required.? - Imaging - Left kidney multiple renal calculi, focused on largest in the upper pole, treatment 7mm x 5mm stone Procedure: After informed consent was verified the patient was brought to the operating room and placed in a supine position.? Anesthesia was performed per protocol. Safety pause time-out was performed. Imaging was displayed in the room and laterality confirmed. ESWL was performed.?The stone was visualized on both fluoroscopy and ultrasound.? Shockwave lithotripsy was performed, with a maximum rate of 120 hertz. After the first 300 shocks a pause for 3 minutes was completed.? A total of 2500 shocks to a maximum of power of 20 with a maximum rate of 120 hertz.? Some fragmentation of the stone was appreciated. The patient tolerated the procedure well and was transferred to the recovery area upon completion. Complications: None
--- NOTE | 2024-07-13 11:41 | MHC.SHP ---
Pre-Procedural Eval Section A - 24 Hr Update-Section A only Date of Service: 07/13/24 The patient is an INPATIENT: No The patient has been examined within 24 hours of the surgical procedure. The History & Physical has been completed within 30 days and I have reviewed it.: Yes Section B - Complete if H&P > 30 days Chief Complaint: Calculus of kidney Allergies: Allergies Allergy/AdvReac Type Severity Reaction Status Date / Time No Known Allergies Allergy Verified 06/03/24 09:42 Plan Diagnosis/Plan: Unchanged I have reviewed the history and physical and performed a pertinent physical examination on my patient. No changes have occurred unless specified. Left ESWL. Discussed risks to include but not limited to, blood in the urine, bruising to the skin, kidney hematoma, possible need for another procedure if a stone fragment obstructs the ureter while passing, possible need to repeat procedure if stone is not completely fragmented. Time Spent With Patient Time: Total time managing care of this patient today ____ minutes.
--- NOTE | 2024-07-13 12:08 | HO.ANESPROP2 ---
[facility] Active Problems Active Problems: All Active Problems Nephrocalcinosis (Acute) Ureterolithiasis (Acute) Sepsis (Acute) Pyelonephritis (Acute) Renal scarring (Acute) Bilateral kidney stones (Acute) Kidney stone (Acute) Cervical cancer screening (Acute) Obesity, morbid, BMI 40.0-49.9 (Acute) Well woman exam with routine gynecological exam (Acute) Breast density (Acute) Past Medical History Medical History Kidney stone Breast density Functional capacity: independent ambulation Patient : No Family History Family history of problems with anesthesia: No Surgical History Surgical History Hx of cystoscopy H/O lithotripsy History of Problems with Anesthesia: No Social History Social History Housing: House Are you a primary animal care technician to a significant other at home: No Do you presently have visiting nurse or other home services: No Alcohol intake: never Patient Tobacco Use Status: Never used Tobacco Use of substances other than those prescribed or required for medical reasons: No Are you DNR?: No Advance Directives: No Advance Directives Information Provided: Yes Patient : No : No Poor oral hygiene: No service: No Meds Allergies Allergy/AdvReac Type Severity Reaction Status Date / Time No Known Allergies Allergy Verified 06/03/24 09:42 Active Medications: Current Medications Fentanyl (Fentanyl Citrate/Pf 100 Mcg/2 Ml Vial) 25 mcg IVPUSH Q5M PRN PRN Reason: Pain, Moderate to Severe (Pain Scale 4-10) Stop: 07/13/24 16:54 Lactated Ringer's (Lr) 1,000 mls @ 100 mls/hr IVCONT .Q10H KONRAD Last Admin: 07/13/24 11:07 Dose: 100 mls/hr Naloxone HCl (Naloxone Hcl 0.4 Mg/Ml Vial) 0.04 mg IVPUSH Q5M PRN PRN Reason: Excessive sedation or RR < 8 Ondansetron HCl (Ondansetron Hcl 4 Mg/2 Ml Vial) 4 mg IVPUSH ONCE PRN PRN Reason: Nausea and Vomiting Stop: 07/13/24 16:54 Oxycodone HCl (Oxycodone Hcl Immed Release 5 Mg Tablet) 5 mg PO ONCE PRN PRN Reason: Pain, Moderate(Pain Scale 4-6) if no IV Access Stop: 07/13/24 16:54 Home Medications ?Medication ?Instructions ?Recorded ?Confirmed ?Last Taken ?Type cholecalciferol (vitamin D3) 25 25 mcg PO DAILY 04/28/24 07/11/24 Unknown History mcg (1,000 unit) tablet pyridoxine (vitamin B6) 100 mg 100 mg PO DAILY 05/06/24 07/11/24 Unknown History tablet Exam Height,Weight and Vital Signs: Height 5 ft 2 in Weight 97.9 kg Last Vital Signs Temp 98.4 F 07/13/24 10:53 Pulse 86 07/13/24 10:53 Resp 16 07/13/24 10:53 BP 142/70 H 07/13/24 10:53 Pulse Ox 98 07/13/24 10:53 O2 Del Method Room Air 07/13/24 10:53 Airway Mallampati Class: III TM Dist: >3cm Neck ROM: Full Heart: RRR Lungs: CTA Assessment and Plan Assessment Anesthesia Assessment: Anesthesia Plan Discussed and Chart Reviewed Final Anesthetic Review Family History of Problems with Anesthesia: No History of Problems with Anesthesia: No NPO: Yes ASA Class: II and III Final Preanesthetic Review: Meds/Allgs Chart Reviewed, Consent Obtained/Reviewed and Anes Risks/Benef Reviewed Patient Risk: Low Procedure Risk: Low Anesthetic Plan Anesthetic Plan: GA Disposition: Standard PACU
[2024-07-13 12:36] VITALS: BP 151/76; PULSE 77; RESP 16; TEMP 36.5; O2SAT 99
[2024-07-13 12:40] VITALS: BP 129/75; PULSE 80; RESP 16; O2SAT 99
[2024-07-13 12:45] VITALS: BP 127/85; PULSE 84; RESP 16; O2SAT 99
[2024-07-13 12:50] VITALS: BP 133/73; PULSE 74; RESP 18; O2SAT 100
[2024-07-13 12:55] VITALS: BP 134/74; PULSE 77; RESP 18; TEMP 36.1; O2SAT 100
== END 2024-07-13 13:13 | disposition home or self-care (01) ==
PROVIDERS: PCP Internal Medicine; Visit Provider Urology
PROC: (CPT 50590; principal; 2024-07-13 10:30)
DX: N20.0 Calculus of kidney (principal); Z87.442 Personal history of urinary calculi; Z79.899 Other long term (current) drug therapy
CPT/HCPCS: 50590; 74018; J0131; J0690; J1100; J1938; J2003; J2250; J2405; J2704; J3010

== ENCOUNTER → 2024-07-13 08:38 | Outpatient (BNV) | payer OTHER, SELFPAY | PROVIDERS: PCP Internal Medicine; Visit Provider Urology | DX: N20.0 Calculus of kidney (principal) | CPT/HCPCS: 50590 ==

== ENCOUNTER → 2024-07-13 09:00 | Outpatient (BNV) | payer OTHER, SELFPAY | PROVIDERS: PCP Internal Medicine; Visit Provider Radiology Diagnostic Radiology | DX: N20.0 Calculus of kidney (principal) | CPT/HCPCS: 74018 ==

== ENCOUNTER 2024-08-18 11:25 | Outpatient (REF) | payer OTHER, SELFPAY ==
--- NOTE | ~2024-08-18 | US_ITS ---
CLINICAL HISTORY: N20.0 - Calculus of kidney US Renal Comparison: 04/20/2024 CT Findings: Right kidney normal echotexture, 10.7 cm length. Left kidney normal echotexture, 10 cm length. Right upper polar and left upper and lower polar renal scarring. No hydronephrosis. Bilateral nonobstructive renal stones measuring up to 8 mm. IMPRESSION: Bilateral nonobstructive renal stones. No hydronephrosis. This document has been electronically signed by: Monse Batista MD on 08/19/2024 09:00:09
--- OUTSIDE RECORDS SUMMARY | 2024-08-18 13:33 | XMS_ITS | Patient Health Record ---
Author Organization - [employer] Address [address] [facility] [address] [place] [address] Care Team Providers Care Institutional Nutrition Consultant Name Role Phone Philip Khan Primary Care Provider En Bell Unavailable [phone] Allergies Allergen (clinical drug ingredient) Drug/Non Drug Allergy documented on EMR Reaction Allergy Type Onset Date Status Sulfamethoxazole rash Drug Allergy Active Reason For Referral No Information Social History Tobacco Use: Social History Observation Description Date Details (start date - stop date) Never Smoker NA - NA Tobacco Use/Smoking Question Answer Notes Are you a nonsmoker Plan Of Treatment No Information Insurance Providers Payer Name Payer Address Payer Phone Subscriber Number Group Number Insured Name Patient Relationship to Insured Coverage Start Date Coverage End Date [facility] Health Plan [facility] / [facility] [address] [place] [address] [id number] Tam Carolyn Self - patient is the insured Medical (General) History Medical History History ICD Code Kidney stones Surgical History Surgery Date(Month/Year) Lithotripsy 2009 Colonoscopy 2018 Endoscopy 2016
== END 2024-08-18 11:26 | disposition home or self-care (01) ==
LOC: HO.US 11:25
PROVIDERS: PCP Internal Medicine; Visit Provider Urology
DX: N20.0 Calculus of kidney (principal)
CPT/HCPCS: 76775

== ENCOUNTER → 2024-08-18 11:27 | Outpatient (BNV) | payer OTHER, SELFPAY | PROVIDERS: PCP Internal Medicine; Visit Provider Radiology Diagnostic Radiology | DX: N20.0 Calculus of kidney (principal) | CPT/HCPCS: 76775 ==

== ENCOUNTER 2024-08-25 09:27 | Emergency (ER) | payer OTHER, SELFPAY ==
--- NOTE | ~2024-08-25 | CT_ITS ---
EXAMINATION: CT ABDOMEN AND PELVIS WITHOUT CONTRAST CLINICAL INFORMATION: Flank pain DLP: 708 mGY*cm COMPARISON: April 20, 2024 TECHNIQUE: Multidetector volumetric imaging was performed from the superior aspect of the liver through the pubic symphysis. Sagittal and coronal reformatted images were obtained on the technologist's workstation. This CT examination was performed using dose optimization techniques as appropriate, variously including the following: *Automated exposure control *Adjustment of mA and/or kV according to patient size (this includes techniques or standardized protocols for targeted exams where dose is matched to indication/reason for exam; i.e. extremities or head) *Use of iterative reconstruction technique FINDINGS: LUNG BASES: The visualized lung bases are unremarkable. LIVER, GALLBLADDER, AND BILIARY TREE: The liver is normal in size, shape, and attenuation. No focal hepatic lesion or biliary ductal dilatation is present. The gallbladder is unremarkable with no evidence of radiopaque gallstones, gallbladder wall thickening, or obvious pericholecystic inflammatory changes. PANCREAS: Unremarkable. SPLEEN: Unremarkable. ADRENAL GLANDS: Unremarkable. KIDNEYS AND URETERS: Again seen is renal cortical scarring in the lateral superior half of the right kidney. With mild multifocal cortical scarring on the left. Innumerable renal stones are present bilaterally with the largest in the lower pole of the left kidney measuring 7 x 15 mm. There may also be a component of medullary nephrocalcinosis. There is no hydronephrosis. No stones are evident in the ureters. BLADDER: Unremarkable. GASTROINTESTINAL TRACT: Small sliding hiatal hernia involves the gastric cardia. Unchanged. Pseudodiverticula are present in the descending and sigmoid colon. There are a few pseudodiverticula in the right colon as well. Gas-filled lumen is noted in the appendix. ABDOMINAL WALL: Small umbilical hernia containing adipose tissues stable. LYMPH NODES: Normal. VASCULAR: Unremarkable. PELVIC VISCERA: Unremarkable. OSSEOUS STRUCTURES: b mild degenerative disc disease is present in the spine. There is moderate facet arthropathy at L5-S1. CT/CT abdomen pelvis wo IV con IMPRESSION: Stones are present in both kidneys which could be related to distal renal tubular acidosis or hyperparathyroidism. There could be a component of medullary nephrocalcinosis raising question of medullary sponge kidney. No obstructing stones were evident today. There is evidence of renal cortical scarring, right greater than left, likely related to remote pyelonephritis. There is a small sliding hiatal hernia involving gastric cardia. Fat-containing umbilical hernia. Diverticulosis without infection. Fleischner guidelines were followed. Electronically signed by: Yuri Luong MD 08/25/2024 10:38 AM EDT
[2024-08-25 09:37] VITALS: BP 157/86; PULSE 86; RESP 18; TEMP 36.5; O2SAT 98; BMI 39.6
--- NOTE | 2024-08-25 09:37 | ED_ITS ---
HPI - General Adult General Chief complaint: General Medical Stated complaint: Hip pain, nausea Time Seen by Provider: 08/25/24 09:37 Source: patient Mode of arrival: ambulatory Limitations: no limitations History of Present Illness ED Provider: Mary Byrd PA-C HPI narrative: Patient is a 59 year old assigned female at with a history of kidney stones s/p ESWL of the left side presenting to the emergency department today with right sided low back pain. Patient states that she has been having right sided low back pain that radiates into the right hip since 08/21/2024. Patient states that she had some left over oxycodone from her previous procedure and took it but it didn't help. Patient denies any dizziness, lightheadedness, abdominal pain, nausea, vomiting, fever, chills, blurry vision, double vision, loss of vision, chest pain, difficulty breathing, shortness of breath, night sweats, pain with urination, increased urinary frequency, increased urinary urgency, blood in her urine or stool, syncope or a near syncopal episode, recent trauma or falls, bowel incontinence, bladder incontinence, or any other complaints at this time. Onset (ago): day(s) (4) Location: back and right Relieving factors: none Exacerbating factors: none Associated symptoms: denies other symptoms Treatments prior to arrival: other (oxycodone without relief) Related Data Home Medications ?Medication ?Instructions ?Recorded ?Confirmed cholecalciferol (vitamin D3) 25 25 mcg PO DAILY 07/11/24 mcg (1,000 unit) tablet pyridoxine (vitamin B6) 100 mg 100 mg PO DAILY 5 07/11/24 tablet Previous Rx's ?Medication ?Instructions ?Recorded hydrochlorothiazide 12.5 mg tablet 12.5 mg PO DAILY #9 0 tabs 06/03/24 omeprazole 20 mg tablet,delayed 20 mg PO DAILY 90 days #90 tabs 06/03/24 release oxycodone-acetaminophen 5 mg-325 1 tab PO Q6H PRN pain #6 tabs 07/13/24 mg tablet (Percocet) cefuroxime axetil 250 mg tablet 500 mg (2 x 250 mg) PO BID 10 days 08/25/24 #40 tabs naproxen 500 mg tablet 500 mg PO BID 7 days #14 tab s 08/25/24 Allergies Allergy/AdvReac Type Severity Reaction Status Date / Time No Known Allergies Allergy Verified 08/25/24 09:42 Review of Systems 2 Constitutional: Constitutional: Reports no additional constitutional complaints, Denies chills, Denies fever(s) and Denies night sweats Eyes: Eyes: Reports no additional eye complaints, Denies blurry vision, Denies change in vision, Denies diplopia, Denies eye discharge, Denies loss of vision and Denies eye pain ENT: Denies dizziness Cardiovascular: Cardiovascular: Reports no additional cardiovascular complaints, Denies chest pain, Denies lightheadedness, Denies Loss of Consciousness and Denies dyspnea Respiratory: Respiratory: Reports no additional respiratory complaints and Denies dyspnea Gastrointestinal: Gastrointestinal: Reports no additional gastrointestinal complaints, Denies abdominal pain, Denies melena, Denies hematochezia, Denies change in bowel habits and Denies change in stool character Genitourinary: Genitourinary: Denies hematuria, Denies urinary frequency, Denies dysuria, Denies urinary incontinence, Denies urinary hesitancy and Denies urinary urgency Musculoskeletal: Musculoskeletal: Reports no additional musculoskeletal complaints, Reports back pain, Denies numbness and Denies tingling Neurologic: Denies dizziness, Denies loss of vision, Denies numbness and Denies tingling Psychiatric: Psychiatric: Reports no additional psychiatric complaints Endocrine: Endocrine: Reports no additional endocrine complaints Hematologic/Lymphatic: Hematologic/Lymphatic: Reports no additional hematologic/lymphatic complaints Allergic/Immunologic: Allergic/Immunologic: Reports no additional allergic/immunologic complaints [facility] Past Medical History Attestation statement: The following information was validated with the patient. Source: old records reviewed and nursing notes reviewed Medical History Kidney stone Breast density Surgical History Hx of cystoscopy H/O lithotripsy Social History Social History Housing: House Are you a primary assisted living care manager to a significant other at home: No Do you presently have visiting nurse or other home services: No Alcohol intake: never Patient Tobacco Use Status: Never used Tobacco Advance Directives: No Advance Directives Information Provided: Yes service: No Physical Exam ED Vital Signs: Vital Signs - 24 hr 08/25/24 09:37 08/25/24 10:17 08/25/24 11:57 Temperature 97.7 F 97.8 F Pulse Rate 86 73 71 Respiratory Rate 18 16 15 Blood Pressure 157/86 H 149/62 H 139/56 L Pulse Oximetry 98 97 97 Oxygen Delivery Method Room Air Room Air Room Air BMI result Body Mass Index 39.6 Const General: cooperative, no acute distress, alert and awake Nutritional Appearance: well nourished Orientation/consciousness: patient oriented x3 HENMT Head: Yes normal to inspection and Yes atraumatic Ears: hearing grossly normal bilaterally and external ears normal General nose exam: Normal external nose present, no nasal discharge noted and no epistaxis Face and sinus: Yes normal facial exam, No abrasion and No laceration Mouth: Normal oral and palatal mucosa present, no drooling and no muffled voice Eyes General: appearance normal, both eyes and all related structures Periorbital: periorbital findings normal Eyelids: Yes eyelids normal Conjunctivae: conjunctivae normal Pupils: Equal, round and reactive pupils present EOM: EOMs intact bilaterally Neck Neck: Yes normal visual inspection, Yes full ROM and Yes no lymphadenopathy Resp Effort & Inspection: normal respiratory effort and able to speak in complete sentences Neuro General: patient oriented x3, moves all extremities and CN's II-XI intact bilaterally Cranial nerves: Yes Equal, round and reactive pupils present Cognition (Neuro): normal cognition Extrem General: Yes normal to inspection, Yes full ROM and Yes capillary refill normal Psych Appearance: grossly normal Mental Status: mental status grossly normal Affect: normal affect Attitude: cooperative Thought process: Normal thought process present Thought content: Normal thought content present Insight: Good insight present (Psych) Medications Administered Generic Name Dose Route Start Last Admin Trade Name Freq PRN Reason Stop Dose Admin Sodium Chloride 1,000 mls @ 999 mls/hr 08/25/24 11:30 08/25/24 11:36 Ns IV 08/25/24 12:30 999 mls/hr .Q1H1M KONRAD Administration Discontinued Medications Generic Name Dose Route Start Last Admin Trade Name Freq PRN Reason Stop Dose Admin Ceftriaxone Sodium 1 gm 08/25/24 10:46 08/25/24 11:13 Ceftriaxone Sodium 1 Gm Vial IVPUSH 08/25/24 10:47 1 gm ONCE ONE Administration Hydromorphone HCl 1 mg 08/25/24 09:49 08/25/24 10:13 Hydromorphone Hcl 1 Mg/Ml Syringe IVPUSH 08/25/24 09:50 Not Given ONCE ONE Protocol Hydromorphone HCl 0.5 mg 08/25/24 11:26 08/25/24 11:35 Hydromorphone Hcl 0.5 Mg/0.5 Ml Syringe IVPUSH 08/25/24 11:27 0.5 mg ONCE ONE Administration Protocol Ketorolac Tromethamine 15 mg 08/25/24 11:30 08/25/24 11:36 Ketorolac Tromethamine 15 Mg/Ml Vial IVPUSH 08/25/24 11:31 15 mg ONCE ONE Administration Ondansetron HCl 4 mg 08/25/24 09:49 08/25/24 10:22 Ondansetron Hcl 4 Mg/2 Ml Vial IVPUSH 08/25/24 09:50 4 mg ONCE ONE Administration Medical Decision Making Medical Decision Making MDM Narrative: Patient is a 59 year old assigned female at with a history of kidney stones s/p ESWL of the left side presenting to the emergency department today with right sided low back pain. Patient's physical exam was unremarkable. Patient's blood work was unremarkable. Patient's urine showed nitrites, large leuks, 21-50 WBC, and 4+ bacteria. Patient's CT showed no acute process and re- demonstrated previous chronic findings. I spoke to the patient's urologist, Dr. Navarrete, who recommended 500ml of IV fluid and discharge with PO ceftin 500mg BID x 10 days. Patient was given IV fluids, dilaudid, and ceftriaxone which upon re- evaluation she stated helped her symptoms significantly. I explained my physical exam findings as well as all test results to the patient. I answered all questions asked by the patient. I stressed the importance of the patient taking her medication as directed (either prescribed or as the over the counter packaging recommends). I stressed the importance of the patient following up with her primary care provider and urologist. I stressed the importance of the patient returning to the emergency department immediately if her symptoms were to worsen or if she were to develop any dizziness, shortness of breath, difficulty breathing, chest pain, blurry vision, loss of vision, nausea, vomiting, abdominal pain, fever, chills, back pain, or any other complaints. Patient verbalized agreement and understanding with this treatment plan and discharge. Differential Diagnosis Differential Diagnoses: The differential diagnosis associated with the presentation includes UTI Pyelonephritis Kidney stone Admission/Observation Consideration of admission/observation: Escalation of care including admission/observation considered Patient would have been admitted to the hospital had her work up had any findings where hospital admission was appropriate and her clinical presentation warranted hospital admission. Consult Healthcare Provider Management of the patient was discussed with: Disposal Man (spoke with the urologist, Dr. Navarrete, as noted in the MDM Rationale portion of this note. ) Lab Data MDM Lab Attestation statement: I reviewed the patient's lab results. My interpretation of these results are in the MDM Rationale portion of this note. 08/25/24 10:06 08/25/24 10:06 Labs: Lab Results 08/25/24 08/25/24 08/25/24 Range/Units 10:06 11:08 11:17 WBC 4.8 (4.8-10.8) X10*3/uL RBC 4.43 (4.20-5.50) X10*6/uL Hgb 13.2 (12.0-16.0) g/dl Hct 40.0 (37.0-47.0) % MCV 90.3 (80.0-98.0) fL MCH 29.8 (27.0-33.0) pg MCHC 33.0 (31.0-35.0) g/dl RDW 13.2 (11.0-16.0) % Plt Count 280 D (160-400) X10*3/uL MPV 9.7 (9.4-12.3) fL Immature Gran % (Auto) 0.2 (0.0-0.4) % Neut % (Auto) 45.8 (45-73) % Lymph % (Auto) 44.8 H (20-40) % [place] % (Auto) 7.1 (2-11) % Eos % (Auto) 1.3 (0-4) % Baso % (Auto) 0.8 (0-2) % Lymph # (Auto) 2.1 (1.2-4.9) X10*3/uL [place] # (Auto) 0.3 (0.1-1.2) X10*3/uL Eos # (Auto) 0.1 (0.0-0.4) X10*3/uL Baso # (Auto) 0.0 (0.0-0.2) X10*3/uL Abs Immat Gran (auto) 0.01 (0.00-0.03) X10*3/uL Absolute Neuts (auto) 2.2 (2.0-8.3) x10*3/uL Absolute Nucleated RBC 0.000 (0.0-0.012) X10*3/uL Nucleated RBC % (auto) 0.0 (0.0-0.2) /100WBC Sodium 141 (135-145) mmol/L Potassium 3.3 D (3.3-5.1) mmol/L Chloride 103 (96-108) mmol/L Carbon Dioxide 29 (22-29) mmol/L Anion Gap 12 (12-20) BUN 9 (9-16) mg/dL Creatinine 0.93 (0.5-1.4) mg/dL Estim Creat Clear Calc 69.5 Estimated GFR > 60 Random Glucose 109 (60-115) mg/dL Lactic Acid 1.9 (0.5-2.0) mmol/L Calcium 9.5 D (8.4-10.2) mg/dL Total Bilirubin 0.6 (0.0-1.0) mg/dL AST 29 (5-31) U/L ALT 28 (0-31) U/L Alkaline Phosphatase 88 (39-117) U/L Total Protein 7.7 (6.5-8.0) g/dL Albumin 4.4 (3.5-5.0) g/dL Urine Color Yellow Urine Appearance Cloudy Urine pH 7.5 (5.0-9.0) Ur Specific [place] 1.015 (1.005-1.025) Urine Protein Trace (Neg-Trace) mg/dL Urine Glucose (UA) Negative (Negative) mg/dL Urine Ketones Negative (Negative) mg/dL Urine Blood Negative (Negative) Urine Nitrite Positive H (Negative) Ur Leukocyte Esterase Large (3+) H (Negative) Urine RBC 0-2 (0-2) /HPF Urine WBC 21-50 H (0-5) /HPF Ur Squamous Epith Cells 3-5 (0-2) /HPF Urine Bacteria 4+ (None Seen) Hyaline Casts 0-2 (0-2) /LPF Independent Interpretation I performed an independent interpretation of an: CT Scan (abd/pelvis) Interpretation: My interpretation is in agreement with the radiologist's impression of this imaging study. L Report Number: [id number]: Total DLP = 708.00 mGy-cm EXAMINATION: CT ABDOMEN AND PELVIS WITHOUT CONTRAST CLINICAL INFORMATION: Flank pain DLP: 708 mGY*cm COMPARISON: April 20, 2024 TECHNIQUE: Multidetector volumetric imaging was performed from the superior aspect of the liver through the pubic symphysis. Sagittal and coronal reformatted images were obtained on the technologist's workstation. This CT examination was performed using dose optimization techniques as appropriate, variously including the following: *Automated exposure control *Adjustment of mA and/or kV according to patient size (this includes techniques or standardized protocols for targeted exams where dose is matched to indication/reason for exam; i.e. extremities or head) *Use of iterative reconstruction technique FINDINGS: LUNG BASES: The visualized lung bases are unremarkable. LIVER, GALLBLADDER, AND BILIARY TREE: The liver is normal in size, shape, and attenuation. No focal hepatic lesion or biliary ductal dilatation is present. The gallbladder is unremarkable with no evidence of radiopaque gallstones, gallbladder wall thickening, or obvious pericholecystic inflammatory changes. PANCREAS: Unremarkable. SPLEEN: Unremarkable. ADRENAL GLANDS: Unremarkable. KIDNEYS AND URETERS: Again seen is renal cortical scarring in the lateral superior half of the right kidney. With mild multifocal cortical scarring on the left. Innumerable renal stones are present bilaterally with the largest in the lower pole of the left kidney measuring 7 x 15 mm. There may also be a component of medullary nephrocalcinosis. There is no hydronephrosis. No stones are evident in the ureters. BLADDER: Unremarkable. GASTROINTESTINAL TRACT: Small sliding hiatal hernia involves the gastric cardia. Unchanged. Pseudodiverticula are present in the descending and sigmoid colon. There are a few pseudodiverticula in the right colon as well. Gas-filled lumen is noted in the appendix. ABDOMINAL WALL: Small umbilical hernia containing adipose tissues stable. LYMPH NODES: Normal. VASCULAR: Unremarkable. PELVIC VISCERA: Unremarkable. OSSEOUS STRUCTURES: b mild degenerative disc disease is present in the spine. There is moderate facet arthropathy at L5-S1. CT/CT abdomen pelvis wo IV con IMPRESSION: Stones are present in both kidneys which could be related to distal renal tubular acidosis or hyperparathyroidism. There could be a component of medullary nephrocalcinosis raising question of medullary sponge kidney. No obstructing stones were evident today. There is evidence of renal cortical scarring, right greater than left, likely related to remote pyelonephritis. There is a small sliding hiatal hernia involving gastric cardia. Fat-containing umbilical hernia. Diverticulosis without infection. Fleischner guidelines were followed. Electronically signed by: Yuri Luong MD 08/25/2024 10:38 AM EDT RP Dictated By: Yuri Luong MD Signed By: Electronically signed by Yuri Luong MD 08/25/24 1038 Radiology Impression Discussion of test interpretation with radiology: I have reviewed the radiologist's reading. Prescription Management I considered prescription management with: Antibiotic (patient prescribed an antibiotic for UTI per Urology recommendation) Critical Care Time Critical Care Time Critical Care Time: Yes Total Critical Care Time: 33 Attestation: I spent 33 minutes of Critical Care Time with this patient. This does not include time spent on separately reported billable procedures. Discharge Plan Discharge Clinical Impression: UTI (urinary tract infection) Qualifiers: Urinary tract infection type: acute cystitis Hematuria presence: without hematuria Qualified Code(s): N30.00 - Acute cystitis without hematuria Patient Disposition: Home, Self-Care Instructions: Urinary Tract Infection in Women (DC) Additional Instructions: Follow up with your primary care provider and the urologist. Return to the emergency department immediately if your symptoms worsen or if you develop any numbness, tingling, dizziness, shortness of breath, difficulty breathing, chest pain, blurry vision, loss of vision, nausea, vomiting, abdominal pain, fever, chills, back pain, or any other complaints. Please see the information below about our Patient Portal. If you are not yet enrolled in the [facility] Patient Portal, you will receive an enrollment email invitation following your visit to any [facility] care setting. You may also self-enroll in the Patient Portal by visiting our website: [email or web address] The following information is required to access the Patient Portal: - Your [facility] Medical Record Number - Your personal home email address (must match what is in your electronic medical record, Registration staff can assist with this) - Name - Date of Capabilities of the Patient Portal: - Message some providers - View upcoming appointments - Access your health summary, medical history, and visit history - View current conditions and allergies - View procedure and lab results - View your medications, including guidelines, side effects, and precautions - Complete pre-appointment questionnaires requested by your provider - Ready summary reports of your office visits and procedures To access the Patient Portal Mobile Lio, follow these directions: - Search [employer] in the Lio Store or [employer] Store - Download the Lio - Search for [facility] - Enter your login/password Prescriptions: New naproxen 500 mg tablet 500 mg PO BID 7 Days Qty: 14 0RF cefuroxime axetil 250 mg tablet 500 mg PO BID 10 Days Qty: 40 0RF No Action oxycodone-acetaminophen [Percocet] 5-325 mg tablet 1 tab PO Q6H PRN (Reason: pain) Qty: 6 0RF Rx Instructions: Partial Fill upon patient request. cholecalciferol (vitamin D3) 25 mcg (1,000 unit) tablet 25 mcg PO DAILY pyridoxine (vitamin B6) 100 mg tablet 100 mg PO DAILY hydrochlorothiazide 12.5 mg tablet 12.5 mg PO DAILY Qty: 90 3RF omeprazole 20 mg tablet,delayed release (DR/EC) 20 mg PO DAILY 90 Days Qty: 90 3RF Referrals: [facility] Urology Services [Provider Group, Urology] Print Language: Yakut
[2024-08-25 10:10] LABS: MANUAL DIFF FLAG NO
[2024-08-25 10:16] LABS: Basophils Percent Auto 0.8 % (0-2); Eosinophils Absolute Auto 0.1 X10*3/uL (0.0-0.4); Eosinophils Percent Auto 1.3 % (0-4); Hemoglobin 13.2 g/dl (12.0-16.0); Imm Gran Abs Auto 0.01 X10*3/uL (0.00-0.03); Imm Gran Pct Auto 0.2 % (0.0-0.4); Lymphocytes Absolute Auto 2.1 X10*3/uL (1.2-4.9); Lymphocytes Percent Auto 44.8 % (20-40); Mean Corpuscular Hemoglobin 29.8 pg (27.0-33.0); Mean Corpuscular Volume 90.3 fL (80.0-98.0); Mean Platelet Volume 9.7 fL (9.4-12.3); Monocytes Absolute Auto 0.3 X10*3/uL (0.1-1.2); Monocytes Percent Auto 7.1 % (2-11); Neutrophils Absolute Auto 2.2 x10*3/uL (2.0-8.3); Neutrophils Percent Auto 45.8 % (45-73); Platelet Count 280 X10*3/uL (160-400); Red Blood Count 4.43 X10*6/uL (4.20-5.50); Red Cell Distribution Width 13.2 % (11.0-16.0); White Blood Count 4.8 X10*3/uL (4.8-10.8)
[2024-08-25 10:17] VITALS: BP 149/62; PULSE 73; RESP 16; O2SAT 97
[2024-08-25] MEDS: ondansetron HCL 4 MG/2 ML VIAL IVPUSH (10:22)
[2024-08-25 10:25] LABS: Alanine Aminotransferase 28 U/L (0-31); Albumin Level 4.4 g/dL (3.5-5.0); Alkaline Phosphatase 88 U/L (39-117); Anion Gap 12 (12-20); Aspartate Amino Transferase 29 U/L (5-31); Bilirubin Total 0.6 mg/dL (0.0-1.0); Blood Urea Nitrogen 9 mg/dL (9-16); Calcium 9.5 mg/dL (8.4-10.2); Carbon Dioxide 29 mmol/L (22-29); Chloride 103 mmol/L (96-108); Creatinine Clr Calc Pharmacy 69.5; Estimated Glomerular Filt Rate > 60; Glucose Random 109 mg/dL (60-115); Potassium 3.3 mmol/L (3.3-5.1); Sodium 141 mmol/L (135-145); Total Protein 7.7 g/dL (6.5-8.0)
--- OUTSIDE RECORDS SUMMARY | 2024-08-25 10:48 | XMS_ITS | Patient Health Record ---
Author Organization - [employer] Address [address] [address] [place] [address] Care Team Providers Care Regional Driver Name Role Phone Philip Khan Primary Care Provider En Bell Unavailable [phone] Allergies Allergen (clinical drug ingredient) Drug/Non Drug [...] Insured Coverage Start Date Coverage End Date [facility] [address] [place] [address] [id number] Tam Carolyn Self - patient is the insured Medical (General) History Medical History History ICD Code Kidney stones Surgical History Surgery Date(Month/Year) Lithotripsy 2009 Colonoscopy 2018 Endoscopy 2016
[2024-08-25] MEDS: cefTRIAXone sodium 1 GM VIAL IVPUSH (11:13)
[2024-08-25 11:29] LABS: Appearance Urine Cloudy; Color Urine Yellow; Glucose Urine UA Negative (Negative); Leukocyte Esterase Urine Large (3+) (Negative); Nitrite Urine Positive (Negative); PH 7.5 (5.0-9.0); Specific Gravity - Urine 1.015 (1.005-1.025); UMIC TRIGGER UACC YES; Urine Blood Negative (Negative); Urine Ketones Negative (Negative); Urine Protein Trace mg/dL (Neg-Trace)
[2024-08-25 11:31] LABS: Bacteria Urine 4+ (None Seen); Hyaline Casts Urine 0-2 /LPF (0-2); RBC Urine 0-2 /HPF (0-2); UACC Culture Trigger YES; WBC Urine 21-50 /HPF (0-5)
[2024-08-25 11:31] LABS: Lactic Acid 1.9 mmol/L (0.5-2.0)
[2024-08-25] MEDS: HYDROmorphone HCl 0.5 MG/0.5 ML SYRINGE IVPUSH (11:35)
[2024-08-25] MEDS: 0.9 % Sodium Chloride 1,000 ML 999 ML IV (11:36)
[2024-08-25] MEDS: Ketorolac Tromethamine 15 MG/ML VIAL IVPUSH (11:36)
[2024-08-25 11:57] VITALS: BP 139/56; PULSE 71; RESP 15; TEMP 36.6; O2SAT 97
[2024-08-25 13:06] VITALS: BP 139/56; PULSE 71; RESP 15; TEMP 36.6; O2SAT 97
== END 2024-08-25 13:07 | disposition home or self-care (01) ==
PROVIDERS: Physician Assistant Medical; Emergency Provider Emergency Medicine
DX: N30.00 Acute cystitis without hematuria (principal); M25.551 Pain in right hip; M54.50 Low back pain, unspecified; R10.9 Unspecified abdominal pain; R11.0 Nausea; Z79.899 Other long term (current) drug therapy
CPT/HCPCS: 36415; 74176; 80053; 81001; 83605; 85025; 87040; 87086; 87088; 87186; 96361; 96374; 96375; 99212; 99284; J0696; J1171; J1885; J2405

== ENCOUNTER → 2024-08-25 09:49 | Outpatient (BNV) | payer OTHER, SELFPAY | PROVIDERS: Visit Provider Radiology Diagnostic Radiology | DX: N20.0 Calculus of kidney (principal) | CPT/HCPCS: 74176 ==

== ENCOUNTER 2024-08-25 13:07 | Outpatient (AMB) | payer OTHER, SELFPAY ==
--- NOTE | 2024-08-25 13:12 | A.OFFVIS_ITS ---
Intake Visit Reasons: ESWL- follow up/KUB Intake Note: Pt presents to the office today for ESWL-follow up/KUB. Allergies No Known Allergies Allergy (Verified 08/25/24 13:15) Medication List - Last Reconciled 08/25/24 by Edgar Soto MD cefuroxime axetil 500 mg (2 x 250 mg) PO BID 10 days cholecalciferol (vitamin D3) 25 mcg PO DAILY hydrochlorothiazide 12.5 mg PO DAILY naproxen 500 mg PO BID 7 days omeprazole 20 mg PO DAILY 90 days oxycodone-acetaminophen 5-325 mg (Percocet) 1 tab PO Q6H PRN pyridoxine (vitamin B6) 100 mg PO DAILY HPI Comments Details: 08/25/24-- - The patient is a 59-year-old female presenting with bilateral nephrolithiasis and medullary nephrocalcinosis. - She has a history of nephrolithiasis and has undergone prior procedures including ureteroscopy and extracorporeal shock wave lithotripsy (ESWL). - the patient was seen in the [place] room this morning due to right- sided pain. - Although ED notes indicate right kidney pain, the patient states that she had right hip pain radiating down her leg different from the usual kidney stone pain. - the emergency department performed a CT scan revealed multiple renal stones bilaterally, with the largest stone measuring 7 x 15 mm in the lower pole of the left kidney. - The patient was discharged with naproxen and antibiotics for a possible urinary tract infection, pending urine culture results. - Urinalysis in the emergency department showed 3+ leukocytes, 0-2 red blood cells per high powered field, 21-50 white blood cells per high powered field, and 4+ bacteria. Results: - CTAP--08/25/24--Innumerable renal stones are present bilaterally with the largest in the lower pole of the left kidney measuring 7 x 15 mm. Findings suggestive of medullary nephrocalcinosis. - Urinalysis: 08/25/24--3+ leukocytes, 0-2 red blood cells per high powered field, 21-50 white blood cells per high powered field, 4+ bacteria. Discussion Notes I discussed with the patient the findings from the CT scan, which showed multiple renal stones with the largest in the left kidney. We reviewed the possibility of a urinary tract infection, and I emphasized the importance of completing the antibiotic course until further urine culture results are available. I explained the potential need for a ureteroscopy with laser lithotripsy and stent insertion to manage the stones effectively. Also reviewed Nephrology note from May, the patient was started on hydrochlorothiazide 12.5 mg. 04/28/2024--here for stent removal, the patient was seen at [facility] due to right flank pain and pyelonephritis, CT imaging at that time was notable for small bilateral renal calculi with a 6 mm right distal ureteral stone with hydronephrosis. Largest kidney stone left kidney upper pole and 9 mm. 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 The patient is post right ureteroscopy laser lithotripsy of distal ureteral stone with stent insertion. The patient is on antibiotics to complete treatment for pyelonephritis. Plan discussed left ESWL. Nephrology referral for nephrocalcinosis, multiple renal calculi. CTAP 04/20/24--Obstructive 6 mm distal right ureteric calculus with moderate upstream hydroureteronephrosis. Right renal parenchymal edema with delayed nephrograms and perinephric stranding. Similar-appearing parenchymal defect in the right upper and midpole kidney. Innumerable bilateral subcentimeter renal calculi largest in the left upper pole measuring 9 mm. Circumferential bladder wall thickening 12/17/23--Carolyn is a 58-year-old female who is here for follow up for kidney stones. She does get occasional kidney discomfort denies blood in the urine. She states she had lithotripsy done several years ago about 1994. She has had urinary infections in the past but denies dysuria at this time. Discussed further evaluation - 24 hr urine. 09/03/23--I have reviewed the CT abdomen and pelvis without contrast dated 08/05/2023 the images were reviewed with the patient. There are multiple bilateral kidney stones largest in the left lower pole. There is scarring of the right kidney. The patient denies renal colic or gross hematuria. I have discussed further evaluation with 24 hour urine collection. Discussed treatment management lithotripsy versus conservative monitoring of the kidneys. 05/25/23--Carolyn is a 58-year-old female who is here as a new patient evaluation for kidney stones. She states she had lithotripsy done several years ago about 1994. She does get occasional kidney discomfort denies blood in the urine. She has had urinary infections in the past but denies dysuria at this time. I reviewed with the patient kidney ultrasound that resulted January 2023. Bilateral kidney stones and right renal scarring. I have discussed further evaluation with CT abdomen/pelvis without IV contrast. I have discussed at length diet modification to decrease risk of forming more kidney stones. I have discussed low oxalate diet and specific foods to avoid including certain green leafy vegetables, chocalate, nuts, tea, beets, rubarb; low sodium, decreased use of animal protein and the importance of hydration drinking up to 2-2.5 liters of fluids and use of adding lemon to water to increase citrate in the diet. A pamphlet is also provided today. I will start her on vitamin B6 100 mg daily. Urinalysis--2+ leukocytes 1+ blood, urine culture sent. [facility] Medical History Kidney stone Breast density Surgical History Hx of cystoscopy H/O lithotripsy Social History Housing: House Are you a primary wound care technician to a significant other at home: No Do you presently have visiting nurse or other home services: No Alcohol intake: never Patient Tobacco Use Status: Never used Tobacco service: No Female Reproductive History Menstrual Age of Menarche: 10 Review of Systems Const All systems reviewed & are unremarkable except as noted in HPI and below Reports no additional complaints Eyes Reports no additional complaints ENT Reports no additional complaints Card Reports no additional complaints Resp Reports no additional complaints GI Reports no additional complaints Reports as per HPI Musc Reports no additional complaints Skin/Breast Reports system reviewed and no additional complaints, except as documented Neuro Reports no additional complaints Psych Reports no additional complaints Endo Reports no additional complaints Roshan/Lymph Reports no additional complaints Aller/Immun Reports no additional complaints Results Reviewed Results Reviewed: Date of Service: 08/25/24 EXAMINATION: CT ABDOMEN AND PELVIS WITHOUT CONTRAST CLINICAL INFORMATION: Flank pain DLP: 708 mGY*cm COMPARISON: April 20, 2024 TECHNIQUE: Multidetector volumetric imaging was performed from the superior aspect of the liver through the pubic symphysis. Sagittal and coronal reformatted images were obtained on the technologist's workstation. This CT examination was performed using dose optimization techniques as appropriate, variously including the following: *Automated exposure control *Adjustment of mA and/or kV according to patient size (this includes techniques or standardized protocols for targeted exams where dose is matched to indication/reason for exam; i.e. extremities or head) *Use of iterative reconstruction technique FINDINGS: LUNG BASES: The visualized lung bases are unremarkable. LIVER, GALLBLADDER, AND BILIARY TREE: The liver is normal in size, shape, and attenuation. No focal hepatic lesion or biliary ductal dilatation is present. The gallbladder is unremarkable with no evidence of radiopaque gallstones, gallbladder wall thickening, or obvious pericholecystic inflammatory changes. PANCREAS: Unremarkable. SPLEEN: Unremarkable. ADRENAL GLANDS: Unremarkable. KIDNEYS AND URETERS: Again seen is renal cortical scarring in the lateral superior half of the right kidney. With mild multifocal cortical scarring on the left. Innumerable renal stones are present bilaterally with the largest in the lower pole of the left kidney measuring 7 x 15 mm. There may also be a component of medullary nephrocalcinosis. There is no hydronephrosis. No stones are evident in the ureters. BLADDER: Unremarkable. GASTROINTESTINAL TRACT: Small sliding hiatal hernia involves the gastric cardia. Unchanged. Pseudodiverticula are present in the descending and sigmoid colon. There are a few pseudodiverticula in the right colon as well. Gas-filled lumen is noted in the appendix. ABDOMINAL WALL: Small umbilical hernia containing adipose tissues stable. LYMPH NODES: Normal. VASCULAR: Unremarkable. PELVIC VISCERA: Unremarkable. OSSEOUS STRUCTURES: b mild degenerative disc disease is present in the spine. There is moderate facet arthropathy at L5-S1. IMPRESSION: Stones are present in both kidneys which could be related to distal renal tubular acidosis or hyperparathyroidism. There could be a component of medullary nephrocalcinosis raising question of medullary sponge kidney. No obstructing stones were evident today. There is evidence of renal cortical scarring, right greater than left, likely related to remote pyelonephritis. RAMONA: 04/20/24 STATUS: COMP REQ : [id number] RECD: 04/21/24 [facility] DR: Joey Harper MD COMP: 04/27/240138 ENTERED: 04/21/[address] [facility] [address]: Mildred Alvarez MD ORDERED: Kidney Stone QUERIES: Kidney Stone Source: [id number] Test Result Flag Reference Component 1 SEE NOTE Carbonate Apatite (Dahllite) 100% Stone Weight 0.055 g This test was developed and its analytical performance characteristics have been determined by [employer]. It has not been cleared or approved by FDA. This assay has been validated pursuant to the CLIA regulations and is used for clinical purposes. THIS TEST WAS PERFORMED AT: [employer]/[facility] [address] [place] [address] BRENTON YE MD,PHD,CARLOS MANUEL Stone Source RIGHT URETERAL STONE Date of Service: 04/20/24 CLINICAL HISTORY: R flank pain, RUQ RLQ TTP CT abdomen and pelvis with contrast Comparison: CT/SR - CT ABDOMEN PELVIS W IV CON - 01/16/24 13:22 EST Findings: Small hiatal hernia. Hepatomegaly with steatosis. Obstructive 6 mm distal right ureteric calculus with moderate upstream hydroureteronephrosis. Right renal parenchymal edema with delayed nephrograms and perinephric stranding. Similar-appearing parenchymal defect in the right upper and midpole kidney. Innumerable bilateral subcentimeter renal calculi largest in the left upper pole measuring 9 mm. No hydronephrosis on the left. No bowel obstruction, pneumoperitoneum, or pneumatosis. Scattered colonic diverticulosis without diverticulitis or colitis. Normal appendix. Circumferential bladder wall thickening. No acute fracture. IMPRESSION: 1. Obstructive 6 mm distal right ureteric calculus with moderate upstream hydroureteronephrosis. 2. Circumferential bladder wall thickening may be related to degree of underdistention or mild cystitis. Date of Service: 08/05/23 CT ABDOMEN AND PELVIS WITHOUT CONTRAST CLINICAL INFORMATION: Renal calculus. COMPARISON: Renal ultrasound dated 01/14/2023. TECHNIQUE: Multidetector volumetric imaging was performed from the superior aspect of the liver through the pubic symphysis. Sagittal and coronal reformatted images were obtained on the technologist's workstation. This CT examination was performed using dose optimization techniques as appropriate, variously including the following: *Automated exposure control *Adjustment of mA and/or kV according to patient size (this includes techniques or standardized protocols for targeted exams where dose is matched to indication/reason for exam; i.e. extremities or head) *Use of iterative reconstruction technique DLP: 551 mGy-cm FINDINGS: LUNG BASES: The visualized lung bases are unremarkable. LIVER, GALLBLADDER, AND BILIARY TREE: The liver is normal in size, shape, and attenuation. 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 No focal hepatic lesion or biliary ductal dilatation is present. The gallbladder is unremarkable with no evidence of radiopaque gallstones, gallbladder wall thickening, or obvious pericholecystic inflammatory changes. PANCREAS: Unremarkable. SPLEEN: Unremarkable. ADRENAL GLANDS: Unremarkable. KIDNEYS AND URETERS: The kidneys are normal in size, shape, and attenuation. 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 There are extensive bilateral renal calculi. The largest on the right include a 5 mm interpolar calculus and an 8 mm lower pole calculus (5:78). The larger calculi within the left kidney are situated at the upper pole measuring 1.1 cm and at the lower pole measuring 0.9 cm (5:93 and 76). No ureteric calculus is seen, and there is no bilateral hydronephroureter. There is no significant perinephric stranding. BLADDER: Unremarkable. GASTROINTESTINAL TRACT: There is mild diverticulosis, without acute diverticulitis. No bowel obstruction, free intraperitoneal air or abscess is seen. There is no focal bowel wall thickening. The vermiform appendix appears normal. ABDOMINAL WALL: There is a small fat-containing umbilical hernia. A small fat-containing left inguinal hernia is seen. LYMPH NODES: Normal. VASCULAR: Unremarkable. PELVIC VISCERA: The uterus and adnexa are unremarkable. OSSEOUS STRUCTURES: Unremarkable. IMPRESSION: 1. There are extensive bilateral renal calculi, as detailed. No ureteric calculus or obstructive uropathy is seen bilaterally. 2. There is mild diverticulosis, without diverticulitis. 3. There are small fat-containing umbilical and left inguinal hernias. Assessment & Plan Assessment & Plan (1) Nephrocalcinosis: Code(s): E83.59 - Other disorders of calcium metabolism; N29 - Other disorders of kidney and ureter in diseases classified elsewhere Category: Medical (2) Bilateral kidney stones: Code(s): N20.0 - Calculus of kidney Category: Medical Plan Plan - Continue antibiotics as prescribed from ED for possible urinary tract infection until urine culture results are available. - Plan for right ureteroscopy with laser lithotripsy and stent insertion to address renal stones. Patient Instructions: The patient had an opportunity to ask questions regarding treatment plan. The patient expressed understanding and agreement with the above treatment plan. The patient is aware they should contact our office by phone for worsening of their current condition or the appearance of new symptoms. Compliance is encouraged with any medications and followup testing that is ordered. It is a privilege to be allowed the opportunity to participate in the urologic care of your patient. If you have any questions or concerns regarding treatment for the above conditions please do not hesitate to contact me. The office telephone contact is [phone]. This note is constructed in part using voice recognition software. While every effort has been made to ensure accuracy labor trainer errors may have been included. Yours sincerely, Edgar Soto MD Scribe Plan - Not visible on output: Patient was informed and verbally consented to the use of an ambient scribe for clinic note documentation during this visit. Coding Level of Care Code Est Pt Level 4 (37956) Complex EM visit Add On G2211 Diagnoses Nephrocalcinosis E83.59; N29 Bilateral kidney stones N20.0
== END 2024-08-25 13:41 | disposition home or self-care (01) ==
LOC: HO.HUSH 13:07
PROVIDERS: Visit Provider Urology
DX: E83.59 Other disorders of calcium metabolism (principal); N29 Other disorders of kidney and ureter in diseases classified elsewhere; N20.0 Calculus of kidney
CPT/HCPCS: 99024

== ENCOUNTER 2024-08-26 10:11 | Outpatient (AMB) | payer OTHER, SELFPAY ==
--- NOTE | 2024-08-26 10:15 | HO.NEPHOV_ITS ---
Vital Signs 08/26/24 10:16 Height 5 ft 2 in Weight 217 lb BMI 39.7 BP 130/80 Blood Pressure Location Rt brachial Position Sitting Pulse 85 Pulse Source Pulse Oximeter Pulse Oximetry (%) 98 Oxygen Delivery Method Room Air Intake Visit Reasons: 3 MO FU-[facility] Release Of Information Specialist Required: No Accompanied by: Self / Same As Patient Allergies No Known Allergies Allergy (Verified 08/26/24 10:16) HPI Comments Details: Carolyn is a 59-year-old female whom I saw in follow up for H/O kidney stones. She states she had lithotripsy done several years ago about 1994. She does get occasional flank discomfort but denies blood in the urine. She has had urinary infections in the past but denies dysuria. She is known to have bilateral kidney stones as well as right renal scarring. She has seen Urologist who has suggested low oxalate diet , keep low sodium diet , decreased use of animal protein and the importance of hydration drinking up to 2-2.5 liters of fluids and use of adding lemon to water to increase citrate in the diet. She recently had right flank pain and pyelonephritis. CT imaging at that time was notable for small bilateral renal calculi with a 6 mm right distal ureteral stone with hydronephrosis. Largest kidney stone was in the left kidney upper pole around 9 mm. She underwent right ureteroscopy laser lithotripsy of distal ureteral stone with stent insertion. She has no family H/O medullary nephrocalcinosis.Her renal function has been normal. She is not hypertensive or diabetic. She is trying to maintain good diet and keep up with hydration PFSH Medical History Kidney stone Breast density Surgical History Hx of cystoscopy H/O lithotripsy Social History Housing: House Are you a primary infant caregiver to a significant other at home: No Do you presently have visiting nurse or other home services: No Alcohol intake: never Patient Tobacco Use Status: Never used Tobacco service: No Female Reproductive History Menstrual Age of Menarche: 10 Review of Systems Const All systems reviewed & are unremarkable except as noted in HPI and below Physical Exam Vital Signs: Last Vital Signs Pulse 85 08/26/24 10:16 BP 130/80 08/26/24 10:16 Pulse Ox 98 08/26/24 10:16 Oxygen Delivery Method Room Air 08/26/24 10:16 BMI result Body Mass Index 39.7 Const General: comfortable and no acute distress Orientation/consciousness: patient oriented x3 HEENT Head: Yes normocephalic Mouth: Normal oral and palatal mucosa present Eyes EOM: EOMs intact bilaterally Neck Neck: Yes supple Resp Auscultation: clear to auscultation bilaterally Cardio Jugular venous distension: no JVD Rate: regular rate GI Palpation (GI): Soft to palpation Auscultation: normal bowel sounds General: Yes no CVA tenderness Back/Spine/Pelvis Back: no CVA tenderness Skin General skin exam: no rashes or lesions noted Neuro General: patient oriented x3 and moves all extremities Extrem General: Yes no pedal edema Results Reviewed Nephrology Results: Hgb, (12.0-16.0) 13.2 g/dl 08/25/24 WBC, (4.8-10.8) 4.8 X10*3/uL 08/25/24 Plt Count, (160-400) 280 X10*3/uL Δ 08/25/24 Sodium, (135-145) 141 mmol/L 08/25/24 Potassium, (3.3-5.1) 3.3 mmol/L Δ 08/25/24 Chloride, (96-108) 103 mmol/L 08/25/24 Carbon Dioxide, (22-29) 29 mmol/L 08/25/24 BUN, (9-16) 9 mg/dL 08/25/24 Creatinine, (0.5-1.4) 0.93 mg/dL 08/25/24 Calcium, (8.4-10.2) 9.5 mg/dL Δ 08/25/24 Urine Protein, (Neg-Trace) Trace mg/dL 08/25/24 Renal US 08/19/24 Assessment & Plan Assessment & Plan (1) Nephrocalcinosis: Code(s): E83.59 - Other disorders of calcium metabolism; N29 - Other disorders of kidney and ureter in diseases classified elsewhere Category: Medical Plan Low oxalate diet , keep low sodium diet , decreased use of animal protein and reiterated the importance of hydration drinking up to 2-2.5 liters of fluids and use of adding lemon to water to increase citrate in the diet. Her 24 hour urine studies were reviewed( low citrate). She should continue HCTZ 12.5 mg daily .I added K citrate today. All questions answered. She has a low oxalate diet sheet. F/U given Orders: Orders Electrolytes Today E83.59 - Other disorders of calcium metabolism, N29 - Other disorders of kidney and ureter in diseases classified elsewhere Blood Urea Nitrogen Today E83.59 - Other disorders of calcium metabolism, N29 - Other disorders of kidney and ureter in diseases classified elsewhere Creatinine Today E83.59 - Other disorders of calcium metabolism, N29 - Other disorders of kidney and ureter in diseases classified elsewhere Calcium Today E83.59 - Other disorders of calcium metabolism, N29 - Other disorders of kidney and ureter in diseases classified elsewhere Medications: New potassium citrate ER 1,080 mg PO BID 180 tabs 3RF 90 days Coding Level of Care Code Est Pt Level 4 (17358) Diagnoses Nephrocalcinosis E83.59; N29
[2024-08-26 10:16] VITALS: BP 130/80; PULSE 85; O2SAT 98; BMI 39.7
== END 2024-08-26 10:55 | disposition home or self-care (01) ==
LOC: HO.HKA 10:12
PROVIDERS: PCP Internal Medicine; Visit Provider Internal Medicine Nephrology
DX: E83.59 Other disorders of calcium metabolism (principal); N29 Other disorders of kidney and ureter in diseases classified elsewhere
CPT/HCPCS: 99214

== ENCOUNTER → 2024-08-26 10:11 | Outpatient (BNVA) | payer OTHER, SELFPAY | PROVIDERS: PCP Internal Medicine; Visit Provider Internal Medicine Nephrology | DX: E83.59 Other disorders of calcium metabolism (principal); N29 Other disorders of kidney and ureter in diseases classified elsewhere | CPT/HCPCS: 99212 ==

== ENCOUNTER 2024-09-13 09:45 | Day surgery (SDC) | payer OTHER, SELFPAY ==
--- OUTSIDE RECORDS SUMMARY | 2024-08-31 13:58 | XMS_ITS | Patient Health Record ---
Author Organization - [employer] Address [address] [facility] [address] [place] [address] Care Team Providers Care Inspector Health Care Facilities Name Role Phone Philip Khan Primary Care Provider En Bell Unavailable [phone] Allergies Allergen (clinical drug ingredient) Drug/Non Drug [...] Insured Coverage Start Date Coverage End Date [facility] Health [facility] [place] [address] [place] [address] [id number] Tam Carolyn Self - patient is the insured Medical (General) History Medical History History ICD Code Kidney stones Surgical History Surgery Date(Month/Year) Lithotripsy 2009 Colonoscopy 2018 Endoscopy 2016
[2024-09-08 11:52] VITALS: BMI 38.7
--- NOTE | 2024-09-12 10:30 | HO.ANESPROP2 ---
Documented by User: Michelle Saucedo NP 09/12/24 10:32 HPI - Anesthesia Eval Consult details Narrative: 59yo F for Cystoscopy, Ureteroroscopy, Retro, Laser,with stent placement s/p ESWL 07/2024 with GA PMFSH Active Problems Active Problems: All Active Problems Nephrocalcinosis (Acute) Ureterolithiasis (Acute) Sepsis (Acute) Pyelonephritis (Acute) Renal scarring (Acute) Bilateral kidney stones (Acute) Kidney stone (Acute) Cervical cancer screening (Acute) Obesity, morbid, BMI 40.0-49.9 (Acute) Well woman exam with routine gynecological exam (Acute) Breast density (Acute) Past Medical History Medical History (Updated 08/26/24 @ 00:00 by Analia Castellano) Kidney stone Breast density Family History Family history of problems with anesthesia: No Surgical History Surgical History (Updated 09/13/24 @ 10:24 by Sully Cruz RN) Hx of cystoscopy H/O lithotripsy History of Problems with Anesthesia: No Social History Social History Housing: House Are you a primary care management assistant to a significant other at home: No Do you presently have visiting nurse or other home services: No Alcohol intake: never Patient Tobacco Use Status: Never used Tobacco Use of substances other than those prescribed or required for medical reasons: No Have you been hit, kicked, punched, or otherwise hurt by someone within the past year? If so, by whom?: No Are you DNR?: No Advance Directives: No Advance Directives Information Provided: No Advance Directives on File: No Patient : No : No Poor oral hygiene: No (Dentures at home) service: No Meds Allergies Allergy/AdvReac Type Severity Reaction Status Date / Time No Known Allergies Allergy Verified 09/13/24 10:24 Home Medications ?Medication ?Instructions ?Recorded ?Confirmed ?Last Taken ?Type cholecalciferol (vitamin D3) 25 25 mcg PO DAILY 04/28/24 09/13/24 Unknown History mcg (1,000 unit) tablet pyridoxine (vitamin B6) 100 mg 100 mg PO DAILY 05/06/24 09/13/24 Unknown History tablet Exam Height,Weight and Vital Signs: Height 5 ft 2 in Weight 96 kg Assessment and Plan Assessment Anesthesia Assessment: Chart Reviewed Final Anesthetic Review Family History of Problems with Anesthesia: No History of Problems with Anesthesia: No Documented by User: Melecio Maguire MD 09/13/24 12:26 [facility] Past Medical History Medical History (Updated 08/26/24 @ 00:00 by Analia Castellano) Kidney stone Breast density Surgical History Surgical History (Updated 09/13/24 @ 10:24 by Sully Cruz RN) Hx of cystoscopy H/O lithotripsy Social History Social History Housing: House Are you a primary care management assistant to a significant other at home: No Do you presently have visiting nurse or other home services: No Alcohol intake: never Patient Tobacco Use Status: Never used Tobacco Use of substances other than those prescribed or required for medical reasons: No Have you been hit, kicked, punched, or otherwise hurt by someone within the past year? If so, by whom?: No Are you DNR?: No Advance Directives: No Advance Directives Information Provided: No Advance Directives on File: No Patient : No : No Poor oral hygiene: No (Dentures at home) service: No Meds Allergies Allergy/AdvReac Type Severity Reaction Status Date / Time No Known Allergies Allergy Verified 09/13/24 10:24 Home Medications ?Medication ?Instructions ?Recorded ?Confirmed ?Last Taken ?Type cholecalciferol (vitamin D3) 25 25 mcg PO DAILY 04/28/24 09/13/24 Unknown History mcg (1,000 unit) tablet pyridoxine (vitamin B6) 100 mg 100 mg PO DAILY 05/06/24 09/13/24 Unknown History tablet Exam Airway Mallampati Class: II TM Dist: <=3cm Neck ROM: Full Heart: ok Lungs: ok Assessment and Plan Assessment Anesthesia Assessment: Anesthesia Plan Discussed Final Anesthetic Review NPO: Yes ASA Class: III Final Preanesthetic Review: No Changes in Pt Med Stat, Meds/Allgs Chart Reviewed, Consent Obtained/Reviewed and Anes Risks/Benef Reviewed Patient Risk: Intermediate Procedure Risk: Low Anesthetic Plan Anesthetic Plan: GA and Agree w/ Assess. and Plan Disposition: Standard PACU
--- NOTE | ~2024-09-13 | FL_ITS ---
EXAMINATION: FL GUIDANCE ONLY HISTORY: stone right COMPARISON: Correlation is made with a CT of the abdomen without contrast dated 08/25/2024. TECHNIQUE: Fluoroscopy time: 39.7 seconds. Cumulative Dose: 19.75 mGy. Images: 3. FINDINGS: Fluoroscopic spot films of the right abdomen demonstrate placement of a nephroureteral stent. FL/FL guidance in OR IMPRESSION: Fluoroscopy during procedure. Please see procedure report for additional information. Electronically signed by: Asa Alonso MD 09/13/2024 02:12 PM EDT
[2024-09-13 10:07] VITALS: BP 152/85; PULSE 87; RESP 16; TEMP 36.7; O2SAT 99; BMI 39.1
[2024-09-13] MEDS: Lactated Ringers 1,000 ML 100 ML IVCONT (10:39)
--- NOTE | 2024-09-13 12:10 | MHC.SHP ---
Pre-Procedural Eval Section A - 24 Hr Update-Section A only Date of Service: 09/13/24 The patient is an INPATIENT: No The patient has been examined within 24 hours of the surgical procedure. The History & Physical has been completed within 30 days and I have reviewed it.: Yes Section B - Complete if H&P > 30 days Chief Complaint: Calculi of kidney, bilateral, right flank pain Allergies: Allergies Allergy/AdvReac Type Severity Reaction Status Date / Time No Known Allergies Allergy Verified 09/13/24 10:24 Plan Diagnosis/Plan: Unchanged I have reviewed the history and physical and performed a pertinent physical examination on my patient. No changes have occurred unless specified. Plan for Cystoscopy, right ureteroscopy, possible laser lithotripsy, ureteral stent. Risks discussed included but not limited to, possible need to repeat procedure if stone is not completely fragmented, Irritative voiding symptoms, bladder spasms, urgency, blood in urine. Time Spent With Patient Time: Total time managing care of this patient today ____ minutes.
--- NOTE | 2024-09-13 12:10 | W.PM.OPN ---
Operative Note Operative Note Date of Service: 09/13/24 Narrative: PreOperative Diagnosis:?? Right renal calculi Post Operative Diagnosis:?? Right renal calculi, findings suggestive of medullary calcinosis Procedure: - Cystoscopy, right retrograde, right ureteroscopy laser lithotripsy stent insertion, 6 Maltese by 24 cm Surgeon:?Dr Edgar Soto Anesthesia:? General Indications for procedure: Multiple bilateral renal calculi, right sided and right flank pain Procedure: After informed consent was verified the patient was brought to the operating placed on the OR table in supine position.? General Anesthesia was administered per protocol.? The patient was placed in lithotomy position, prepped and draped in the usual sterile fashion.? Safety pause time-out and side of surgery confirmed.? Antibiotics confirmed. 2% lidocaine jelly 10 mL was passed transurethrally. A 22 Maltese cystoscope was inserted transurethrally, urine was sent for culture. The bladder was visualized.? Both ureteric orifices were in normal position. An open-ended ureteral catheter was passed into the right ureteral orifice and a retrograde examination was performed to delineate the ureter, renal pelvis and calyces. A guidewire was passed through the ureteral catheter into the kidney. The cystoscope was removed. The ureteral access sheath 10 fr x 36 cm was passed over the guide-wire into the renal pelvis. The flexible ureteroscope was passed over the guidewire through the access sheath into the kidney. The guidewire was then removed. Multiple small stones were seen in the renal calyces some tiny calculi noted embedded consistent with medullary calcinosis Laser lithotripsy of the stones done using the 272 fiber. There was good fragmentation of the stones. The guidewire was replaced, The ureteroscope and access sheath removed. The cystoscope was passed over the safety guidewire. A? 6 Maltese by 24 cm stent was placed into the ureter and renal pelvis under a combination of fluoroscopy and direct visualization. The bladder was emptied.? The rigid cystoscope was removed. ?Belladonna placed per rectum. The patient tolerated the procedure well and was brought to the recovery room in stable condition. Complications: None Drains: Ureteral stent as dictated above
[2024-09-13 14:04] VITALS: BP 145/78; PULSE 73; RESP 18; TEMP 36.7; O2SAT 96
[2024-09-13 14:09] VITALS: BP 124/70; PULSE 75; RESP 17; O2SAT 96
[2024-09-13 14:14] VITALS: BP 131/77; PULSE 74; RESP 19; O2SAT 97
[2024-09-13 14:19] VITALS: BP 148/84; PULSE 68; RESP 17; O2SAT 98
[2024-09-13 14:37] VITALS: BP 118/97; PULSE 70; RESP 15; TEMP 36.7; O2SAT 95
== END 2024-09-13 15:01 | disposition home or self-care (01) ==
PROVIDERS: Visit Provider Urology
PROC: (CPT 52356; principal; 2024-09-13 12:10)
DX: N20.0 Calculus of kidney (principal); R10.9 Unspecified abdominal pain; Z87.442 Personal history of urinary calculi; N29 Other disorders of kidney and ureter in diseases classified elsewhere; K57.30 Diverticulosis of large intestine without perforation or abscess without bleeding; Z79.1 Long term (current) use of non-steroidal anti-inflammatories (NSAID); Z79.899 Other long term (current) drug therapy
CPT/HCPCS: 52356; 87086; 87088; 87186; C1758; C1769; C2617; J0690; J1885; J1956; J2003; J2405; J2704; J3010; Q9967

== ENCOUNTER → 2024-09-13 09:45 | Outpatient (BNV) | payer OTHER, SELFPAY | PROVIDERS: Visit Provider Urology | DX: N20.0 Calculus of kidney (principal) | CPT/HCPCS: 52356; 74420 ==

== ENCOUNTER 2024-09-24 07:05 | Inpatient (IN) | payer OTHER, SELFPAY ==
[2024-09-24] VITALS (10 sets, daily range): BP systolic 126–155; BP diastolic 50–82; PULSE 95–126; RESP 15–20; TEMP 37.4–39.4; O2SAT 95–99; BMI 39.3; BMI 39.6
--- NOTE | ~2024-09-24 | CT_ITS ---
CLINICAL HISTORY: s p stent in right ureter, now in sepsis CT abdomen and pelvis without contrast Comparison: CT/SR - CT ABDOMEN PELVIS WITHOUT IV CONTRAST - 08/25/24 10:04 EDT Findings: The lung bases are clear. The unenhanced liver, gallbladder, spleen, adrenal glands and pancreas are unremarkable. No bowel obstruction, free air or abscess. Normal appendix. Diverticulosis without diverticulitis. Right-sided double-J ureteral stent present. The proximal portion is within the ureter versus renal pelvis. There is stranding about the right kidney. No significant hydronephrosis. There are several variable-sized calculi present bilaterally similar to prior. The bladder, uterus and adnexa are unremarkable. No acute osseous finding. Impression: A right-sided double-J ureteral stent is noted with the proximal portion within the proximal ureter versus renal pelvis. Mild stranding about the right kidney without significant hydronephrosis. Several variable sized urinary calculi bilaterally. Additional incidental findings. This document has been electronically signed by: Juan Carlos Bowers MD on 09/24/2024 10:22:09
--- NOTE | ~2024-09-24 | FL_ITS ---
EXAMINATION: FL GUIDANCE ONLY HISTORY: STENT REMOVAL COMPARISON: Correlation is made with a CT of the abdomen and pelvis without contrast dated 09/24/2024. TECHNIQUE: Fluoroscopy time: 4.9 seconds. Cumulative Dose: 2.18 mGy. Images: 3. FINDINGS: Images demonstrate removal of the previously seen right ureteral stent. FL/FL guidance in OR IMPRESSION: Fluoroscopy during procedure. Please see procedure report for additional information. Electronically signed by: Asa Alonso MD 09/27/2024 02:01 PM EDT
[2024-09-24 07:51] LABS: MANUAL DIFF FLAG NO
[2024-09-24 07:57] LABS: Hematocrit 37.4 % (37.0-47.0); Hemoglobin 12.5 g/dl (12.0-16.0); Imm Gran Abs Auto 0.06 X10*3/uL (0.00-0.03); Imm Gran Pct Auto 0.5 % (0.0-0.4); Lymphocytes Absolute Auto 1.2 X10*3/uL (1.2-4.9); Mean Corpuscular HGB Conc 33.4 g/dl (31.0-35.0); Mean Corpuscular Hemoglobin 29.8 pg (27.0-33.0); Mean Corpuscular Volume 89.3 fL (80.0-98.0); NRBC Abs Auto 0.000 X10*3/uL (0.0-0.012); NRBC Pct Auto 0.0 /100WBC (0.0-0.2); Platelet Count 250 X10*3/uL (160-400); Red Blood Count 4.19 X10*6/uL (4.20-5.50); White Blood Count 12.0 X10*3/uL (4.8-10.8)
[2024-09-24 08:03] LABS: Anion Gap 13 (12-20); Blood Urea Nitrogen 10 mg/dL (9-16); Calcium 9.3 mg/dL (8.4-10.2); Carbon Dioxide 25 mmol/L (22-29); Chloride 104 mmol/L (96-108); Creatinine Clr Calc Pharmacy 64.3; Estimated Glomerular Filt Rate 56; Potassium 3.4 mmol/L (3.3-5.1); Sodium 139 mmol/L (135-145)
[2024-09-24] MEDS: Lactated Ringers 1,000 ML 999 ML IV (08:09)
--- NOTE | 2024-09-24 08:25 | PC.NURSE ---
a&ox4. vss and up to date aside from being febrile and sinus tachycardic on the monitor. pt denies any chest pain/palpitations. pt presents to the ED c/o RLQ radiating to right flank w/ associated nausea, urinary frequency/dysuria dry heaves, night sweats, and headache s/p recent right stent placement on 09/10. 20gIV placed in the right AC - labs obtained/sent to lab. IVF/abx/tylenol administered per provider order. effectiveness pending. pt on RA w/o difficulty. no sob/wob noted. respirations even/unlabored. plan of care ongoing. call jose placed within reach.
--- NOTE | 2024-09-24 08:42 | ED.GENADULT ---
HPI - General Adult General Chief complaint: Fever Stated complaint: headache night sweats Time Seen by Provider: 09/24/24 08:01 Source: patient Mode of arrival: ambulatory Limitations: no limitations History of Present Illness ED Provider: DR. Mark HPI narrative: 59-year-old female came in for evaluation of generalized body ache, fever, chills, suprapubic pain, pain with urination that radiates toward the right flank area, feeling nauseous with no vomiting, slight headache, no sore throat, no cough, no CP, no SOB. S/p right ureteric stent placed on 09/13. Related Data Home Medications ?Medication ?Instructions ?Recorded ?Confirmed cholecalciferol (vitamin D3) 25 25 mcg PO DAILY 04/28/24 09/13/24 mcg (1,000 unit) tablet pyridoxine (vitamin B6) 100 mg 100 mg PO DAILY 05/06/24 09/13/24 tablet Previous Rx's ?Medication ?Instructions ?Recorded hydrochlorothiazide 12.5 mg tablet 12.5 mg PO DAILY #90 tabs 06/03/24 naproxen 500 mg tablet 500 mg PO BID 7 days #14 tabs 08/25/24 potassium citrate 10 mEq (1,080 1,080 mg PO BID 90 days #180 tabs 08/26/24 mg) tablet,extended release levofloxacin 500 mg tablet 500 mg PO DAILY 7 days #7 tabs 09/13/24 mirabegron 25 mg tablet,extended 25 mg PO BEDTIME #30 tabs 09/13/24 release 24 hr (Myrbetriq) oxycodone 5 mg tablet 5 mg PO .[id number] PRN pain #10 tabs 09/13/24 phenazopyridine 200 mg tablet 200 mg PO .B.i.d. For bladder 09/13/24 (Pyridium) spasms and pain with urination #20 tabs Allergies Allergy/AdvReac Type Severity Reaction Status Date / Time No Known Allergies Allergy Verified 09/24/24 07:20 Review of Systems Review of Systems: All other systems are reviewed and are negative Constitutional: Reports as per HPI and Reports no additional constitutional complaints Eyes: Reports as per HPI and Reports no additional eye complaints Reports system reviewed and no additional complaints, except as documented Cardiovascular: Reports as per HPI and Reports no additional cardiovascular complaints Respiratory: Reports as per HPI and Reports no additional respiratory complaints Gastrointestinal: Reports as per HPI and Reports no additional gastrointestinal complaints Genitourinary: Reports no additional female genitourinary complaints Musculoskeletal: Reports no additional musculoskeletal complaints Skin/Breast: Reports system reviewed and no additional complaints, except as docu Psychiatric: Reports no additional psychiatric complaints Endocrine: Reports no additional endocrine complaints Hematologic/Lymphatic: Reports no additional hematologic/lymphatic complaints Allergic/Immunologic: Reports no additional allergic/immunologic complaints Reports system reviewed and no additional complaints, except as documented and Reports Abnormal speech present [facility] Past Medical History Medical History Kidney stone Breast density Surgical History Hx of cystoscopy H/O lithotripsy Social History Social History Housing: House Are you a primary palliative care nurse practitioner to a significant other at home: No Do you presently have visiting nurse or other home services: No Alcohol intake: never Patient Tobacco Use Status: Never used Tobacco Smoked in Last 30 Days: No Use of substances other than those prescribed or required for medical reasons: No Advance Directives: No Advance Directives Information Provided: No Do you have a plan to hurt others: No Plan service: No Physical Exam ED Vital Signs: Vital Signs - 24 hr 09/24/24 07:17 09/24/24 08:00 09/24/24 09:14 Temperature 101.3 F H 99.7 F 99.7 F Pulse Rate 123 H 117 H 105 H Respiratory Rate 18 19 15 Blood Pressure 141/76 H 150/76 H 134/52 L Pulse Oximetry 97 98 96 Oxygen Delivery Method Room Air Room Air Room Air 09/24/24 10:47 09/24/24 11:29 09/24/24 11:52 Temperature 99.5 F 99.5 F Pulse Rate 98 95 102 H Respiratory Rate 18 16 20 Blood Pressure 126/50 L 144/57 H 146/72 H Pulse Oximetry 98 97 Oxygen Delivery Method Room Air Room Air BMI result Body Mass Index 39.3 Vital signs have been reviewed and appear to be correct. Blood pressure elevated. Heart rate normal. Respiratory rate normal. Temperature normal. Oxygen saturation normal. Appearance: Alert. Oriented X3. No acute distress. Head: Normal external exam. Normocephalic. Atraumatic. No Venegas signs noted. No raccoon eyes noted Eyes: PERRLA. EOMI. Conjunctiva and sclera normal. Eyelids normal. ENT: TM's Normal. Pharynx normal. Uvula midline. Moist mucous membranes. No trismus noted. No drooling noted. No muffled voice noted. Neck: Normal inspection. Neck supple. FROM. No adenopathy. Thyroid Normal. No meningeal signs. No neck mass noted. CVS: Normal heart rate and rhythm. Heart sound normal. No murmurs noted. Pulses normal throughout. Respiratory: No respiratory distress. Painless inspiration. Breath sounds normal. No wheezes/rales/rhonchi noted. Chest nontender. No accessory muscle usage noted or decreased air movement noted. Abdomen: Soft and nontender. Bowel sounds normal in all 4 quadrants. No distention noted. No organomegaly noted. No visible injury noted. Back: No CVA tenderness. Full range of motion noted. Skin: Skin warm and dry. Normal skin color. Normal skin turgor. No rashes/lesions/lacerations noted. Extremities: No lower extremity edema. Extremities exhibit normal range of motion. Extremities nontender. Neuro: Oriented X 3. Cranial nerve exam: II-XII are grossly intact No motor deficit. No sensory deficit. Reflexes normal. Course Reevaluation(s) Reevaluation #1: UTI with sepsis, s/p right ureteric stent. 1. Case discussed with Dr. Navarrete on-call for recommended to admit to medical service with IV hydration/antibiotic. Time: 12:04 Medications Administered Discontinued Medications Generic Name Dose Route Start Last Admin Trade Name Freq PRN Reason Stop Dose Admin Acetaminophen 975 mg 09/24/24 07:53 09/24/24 08:01 Acetaminophen 325 Mg Tablet PO 09/24/24 07:54 975 mg ONCE ONE Administration Ceftriaxone Sodium 1 gm 09/24/24 08:01 09/24/24 08:12 Ceftriaxone Sodium 1 Gm Vial IVPUSH 09/24/24 08:02 1 gm ONCE ONE Administration Lactated Ringer's 1,000 mls @ 999 mls/hr 09/24/24 08:15 09/24/24 10:37 Lr IV 09/24/24 09:15 Infused .Q1H1M KONRAD Infusion Medical Decision Making Differential Diagnosis Differential Diagnoses: The differential diagnosis associated with the presentation includes (UTI, sepsis, kidney stone, obstructive uropathy, acute appendicitis, electrolyte derangement, severe anemia.) Admission/Observation Consideration of admission/observation: Escalation of care including admission/observation considered Consult Healthcare Provider Management of the patient was discussed with: Hospitalist (Dr. Ortega) and Calenderer (Dr. Navarrete) Lab Data MDM Lab Attestation statement: I reviewed the patient's lab results. 09/24/24 07:46 09/24/24 07:46 Labs: Lab Results 09/24/24 09/24/24 09/24/24 Range/Units 07:46 08:48 10:48 WBC 12.0 H (4.8-10.8) X10*3/uL RBC 4.19 L (4.20-5.50) X10*6/uL Hgb 12.5 (12.0-16.0) g/dl Hct 37.4 (37.0-47.0) % MCV 89.3 (80.0-98.0) fL MCH 29.8 (27.0-33.0) pg MCHC 33.4 (31.0-35.0) g/dl RDW 12.8 (11.0-16.0) % Plt Count 250 (160-400) X10*3/uL MPV 9.4 (9.4-12.3) fL Immature Gran % (Auto) 0.5 H (0.0-0.4) % Neut % (Auto) 82.1 H (45-73) % Lymph % (Auto) 9.7 L (20-40) % [place] % (Auto) 7.5 (2-11) % Eos % (Auto) 0.0 (0-4) % Baso % (Auto) 0.2 (0-2) % Lymph # (Auto) 1.2 (1.2-4.9) X10*3/uL [place] # (Auto) 0.9 (0.1-1.2) X10*3/uL Eos # (Auto) 0.0 (0.0-0.4) X10*3/uL Baso # (Auto) 0.0 (0.0-0.2) X10*3/uL Abs Immat Gran (auto) 0.06 H (0.00-0.03) X10*3/uL Absolute Neuts (auto) 9.8 H (2.0-8.3) x10*3/uL Absolute Nucleated RBC 0.000 (0.0-0.012) X10*3/uL Nucleated RBC % (auto) 0.0 (0.0-0.2) /100WBC Sodium 139 (135-145) mmol/L Potassium 3.4 (3.3-5.1) mmol/L Chloride 104 (96-108) mmol/L Carbon Dioxide 25 (22-29) mmol/L Anion Gap 13 (12-20) BUN 10 (9-16) mg/dL Creatinine 1.00 (0.5-1.4) mg/dL Estim Creat Clear Calc 64.3 Estimated GFR 56 Random Glucose 129 H (60-115) mg/dL Lactic Acid 1.3 (0.5-2.0) mmol/L Calcium 9.3 (8.4-10.2) mg/dL Urine Color Yellow Urine Appearance Clear Urine pH 7.5 (5.0-9.0) Ur Specific [place] 1.010 (1.005-1.025) Urine Protein 30 (1+) H (Neg-Trace) mg/dL Urine Glucose (UA) Negative (Negative) mg/dL Urine Ketones Negative (Negative) mg/dL Urine Blood Large (3+) H (Negative) Urine Nitrite Positive H (Negative) Ur Leukocyte Esterase Large (3+) H (Negative) Urine RBC >20 H (0-2) /HPF Urine WBC >50 H (0-5) /HPF Ur Squamous Epith Cells 0-2 (0-2) /HPF Urine Bacteria None Seen (None Seen) Hyaline Casts 0-2 (0-2) /LPF Influenza Type A (PCR) NEGATIVE (Negative) Influenza Type B (PCR) NEGATIVE (Negative) RSV RNA Qual (PCR) NEGATIVE (Negative) SARS-CoV-2 RNA (RT-PCR) NEGATIVE (Negative) Independent Interpretation I performed an independent interpretation of an: CT Scan (Abdomen pelvis:A right-sided double-J ureteral stent is noted with the proximal portion within the proximal ureter versus renal pelvis. Mild stranding about the right kidney without significant hydronephrosis.) Radiology Impression Discussion of test interpretation with radiology: I have reviewed the radiologist's reading. Critical Care Time Critical Care Time Critical Care Time: Yes Total Critical Care Time: 60 Attestation: The patient was critically ill with a high probability of imminent or life-threatening deterioration. I spent greater than 30 minutes of discontinuous time evaluating the patient, delivering critical care at the bedside, discussing evaluating data with consultants. Critical care time does not include time spent performing separately billable procedures or teaching. Time spent performing critical care was 60 minutes. Discharge Plan Discharge Clinical Impression: Sepsis, UTI (urinary tract infection) Patient Disposition: Admitted As Inpatient Print Language: [place] Citizen
[2024-09-24 09:32] LABS: Resp Syncy Virus RNA Qual PCR NEGATIVE (Negative); SARS COV2 PCR INHOUSE NEGATIVE (Negative)
[2024-09-24 11:03] LABS: Appearance Urine Clear; Glucose Urine UA Negative (Negative); PH 7.5 (5.0-9.0); Specific Gravity - Urine 1.010 (1.005-1.025); UMIC TRIGGER UACC YES
[2024-09-24 11:17] LABS: UACC Culture Trigger YES
--- NOTE | 2024-09-24 12:25 | PM.IMHP ---
History of Present Illness Date of Service: 09/24/24 <ALON Silveira - Last Filed: 09/24/24 12:42> Attending physician on admission: Kathi Henao <ALON Silveira - Last Filed: 09/24/24 12:42> Chief Complaint: Fever, abd pain, dysuria <ALON Silveira - Last Filed: 09/24/24 12:42> Pt is a 59-year-old female with a PMH significant for?nephrolithiasis who presents to the ED with?fever, chills, headache, nausea, vomiting, and right-sided lower abdominal pain since Thursday. Pt also notes has dysuria and polyuria. Recently had right stent placed on 09/13 for nephrolithiasis by urology. Denies right flank or back pain. No SOB or difficulty breathing. Denies chest pain/pressure, palpitations. In the ED pt was febrile up to 101.3 and tachycardic up to 123. BP overall stable. Labs were significant for leukocytosis 12.0 and UA consistent with acute UTI. Lactic acid WNL. Renal function baseline. No significant electrolyte abnormalities. CT of abd/pelvis negative for acute abdomen or pyelonephritis. Pt was treated in the ED with acetaminophen, IVF, and ceftriaxone. Pt is admitted to the hospital for treatment and further evaluation of acute UTI with sepsis. <ALON Silveira - Last Filed: 09/24/24 12:42> Review of Systems Review of Systems: Negative except for that which is stated in the HPI. <ALON Silveira - Last Filed: 09/24/24 12:42> [facility] Medical History: Medical History Kidney stone Breast density <ALON Silveira - Last Filed: 09/24/24 12:42> Surgical History: Surgical History Hx of cystoscopy H/O lithotripsy <ALON Silveira - Last Filed: 09/24/24 12:42> Social History: Social History Housing: House Are you a primary care transition mgr to a significant other at home: No Do you presently have visiting nurse or other home services: No Alcohol intake: never Patient Tobacco Use Status: Never used Tobacco Smoked in Last 30 Days: No Use of substances other than those prescribed or required for medical reasons: No Advance Directives: No Advance Directives Information Provided: No Do you have a plan to hurt others: No Plan service: No <ALON Silveira - Last Filed: 09/24/24 12:42> Meds Allergies/Adverse reactions: Allergies Allergy/AdvReac Type Severity Reaction Status Date / Time No Known Allergies Allergy Verified 09/24/24 07:20 <ALON Silveira Last Filed: 09/24/24 12:42> Home medications: Home Medications ?Medication ?Instructions ?Recorded ?Confirmed ?Last Taken ?Type cholecalciferol (vitamin D3) 25 25 mcg PO DAILY 04/28/24 09/13/24 Unknown History mcg (1,000 unit) tablet pyridoxine (vitamin B6) 100 mg 100 mg PO DAILY 05/06/24 09/13/24 Unknown History tablet <ALON Silveira Last Filed: 09/24/24 12:42> Physical Exam Vital Signs and Narrative: Vital Signs: Last Vital Signs Temp 99.5 F 09/24/24 11:52 Pulse 102 H 09/24/24 11:52 Resp 20 09/24/24 11:52 BP 146/72 H 09/24/24 11:52 Pulse Ox 97 09/24/24 11:52 O2 Del Method Room Air 09/24/24 11:52 BMI result Body Mass Index 39.3 <ALON Silveira Last Filed: 09/24/24 12:42> General: AOx3, no acute distress Resp: CTA bilaterally CVS: S1, S2, regular rate, tachycardic GI: +BS, right-sided tenderness Back: No CVA tenderness Skin: Warm, dry Neuro: Cranial nerves II-XII grossly intact bilaterally. Motor grossly intact bilaterally Extremities: No edema Psych: Appropriate affect <ALON Silveira Last Filed: 09/24/24 12:42> Results Labs CBC and Chem 7: 09/24/24 07:46 09/24/24 07:46 <ALON Silveira Last Filed: 09/24/24 12:42> Labs: Laboratory Results - last 24 hr 09/24/24 09/24/24 09/24/24 07:46 08:48 10:48 MCV 89.3 MCH 29.8 MCHC 33.4 RDW 12.8 Plt Count 250 MPV 9.4 Immature Gran % (Auto) 0.5 H Neut % (Auto) 82.1 H Lymph % (Auto) 9.7 L [place] % (Auto) 7.5 Eos % (Auto) 0.0 Baso % (Auto) 0.2 Lymph # (Auto) 1.2 [place] # (Auto) 0.9 Eos # (Auto) 0.0 Baso # (Auto) 0.0 Abs Immat Gran (auto) 0.06 H Absolute Neuts (auto) 9.8 H Absolute Nucleated RBC 0.000 Nucleated RBC % (auto) 0.0 Anion Gap 13 Estim Creat Clear Calc 64.3 Estimated GFR 56 Random Glucose 129 H Lactic Acid 1.3 Calcium 9.3 Urine Color Yellow Urine Appearance Clear Urine pH 7.5 Ur Specific [place] 1.010 Urine Protein 30 (1+) H Urine Glucose (UA) Negative Urine Ketones Negative Urine Blood Large (3+) H Urine Nitrite Positive H Ur Leukocyte Esterase Large (3+) H Urine RBC >20 H Urine WBC >50 H Ur Squamous Epith Cells 0-2 Urine Bacteria None Seen Hyaline Casts 0-2 Influenza Type A (PCR) NEGATIVE Influenza Type B (PCR) NEGATIVE RSV RNA Qual (PCR) NEGATIVE SARS-CoV-2 RNA (RT-PCR) NEGATIVE <ALON Silveira - Last Filed: 09/24/24 12:42> Assessment and Plan (1) UTI (urinary tract infection): Status: Acute <ALON Silveira - Last Filed: 09/24/24 12:42> (2) Sepsis: Status: Acute <ALON Silveira - Last Filed: 09/24/24 12:42> Pt is a 59-year-old female with a PMH significant for?nephrolithiasis who presents to the ED with?fever, chills, headache, nausea, vomiting, and right-sided lower abdominal pain since Thursday. Pt also notes has dysuria and polyuria. Recently had right stent placed on 09/13 for nephrolithiasis by urology. Pt is admitted to the hospital for treatment and further evaluation of acute UTI with sepsis. Acute UTI with sepsis UA+, pt with fever, chills, N/V, polyuria, dysuria times 24 hours S/p right ureteral stenting on 09/13 CTA of abd/pelvis negative for acute abdomen or pyelonephritis Previous cultures grew E coli Meets sepsis criteria with fever and tachycardia but no severe features; no hypotension, lactic acid WNL Will treat with ceftriaxone, started 09/24/2024 Urology consult Follow urine cultures Full Code Attending:?Dr. Henao DVT Prophylaxis: Lovenox Pt will require a hospitalization of at least two nights for treatment of?acute UTI s/p recent stenting meeting sepsis criteria that will require IV antibiotics and specialist consultation with Neurology. <ALON Silveira - Last Filed: 09/24/24 12:42> Pt is a 59-year-old female with a PMH significant for?nephrolithiasis who presents to the ED with?fever, chills, headache, nausea, vomiting, and right-sided lower abdominal pain since Thursday. Pt also notes has dysuria and polyuria. Recently had right stent placed on 09/13 for nephrolithiasis by urology. Pt is admitted to the hospital for treatment and further evaluation of acute UTI with sepsis. Acute UTI with sepsis UA+, pt with fever, chills, N/V, polyuria, dysuria times 24 hours S/p right ureteral stenting on 09/13 CTA of abd/pelvis negative for acute abdomen or pyelonephritis Previous cultures grew E coli Meets sepsis criteria with fever and tachycardia but no severe features; no hypotension, lactic acid WNL Will treat with ceftriaxone, started 09/24/2024 Urology consult Follow urine cultures Obesity III Counseled regarding diet and exercise Full Code Attending:?Dr. Henao DVT Prophylaxis: Lovenox Pt will require a hospitalization of at least two nights for treatment of?acute UTI s/p recent stenting meeting sepsis criteria that will require IV antibiotics and specialist consultation with Neurology. <Kathi Henao MD - Last Filed: 09/24/24 12:44> Quality Stroke Does the patient have a stroke diagnosis?: No <ALON Silveira - Last Filed: 09/24/24 12:42> VTE Prior VTE?: No <ALON Silveira - Last Filed: 09/24/24 12:42> VTE Risk Level:: Medical - moderate - high <ALON Silveira - Last Filed: 09/24/24 12:42> VTE Device Contraindication: Treatment Not Indicated <ALON Silveira - Last Filed: 09/24/24 12:42> VTE Drug Contraindication: N/A - Med Ordered <ALON Silveira - Last Filed: 09/24/24 12:42>
--- NOTE | 2024-09-24 13:10 | PC.NURSE ---
pt incontinent of urine - pericare performed. bed change completed.
--- NOTE | 2024-09-24 13:45 | PC.NURSE ---
patient noted to be febrile when obtaining vital signs. prn tylenol administered per provider order. effectiveness pending. pt also requesting prn for indigestion - prn utilized. pt otherwise remains sinus tachycardic on the monitor - denies chest pain/palpitations. otherwise vss and up to date. on RA w/o difficulty. no sob/wob noted. respirations even/unlabored. plan of care ongoing. call jose placed within reach.
--- NOTE | 2024-09-24 14:26 | PHA.MEDREC ---
Addendum entered by Laila Antonio RPh 09/24/24 15:07: [facility] reviewed Original Note: Pharmacy Consult ? Medication Reconciliation Pharmacy has completed the medication reconciliation. Spoke with patient to confirm. She reports out of the new prescriptions she received, she only finished one (levofloxacin). She is no longer taking omeprazole or naproxen. She last took myrbetriq and oxycodone yesterday.
[2024-09-24] MEDS: Lactated Ringers 1,000 ML 100 ML IVCONT (15:12)
[2024-09-24] MEDS: 0.9 % Sodium Chloride Flush 3 ML SYRINGE IVFLUSH (19:40)
[2024-09-25 03:18] VITALS: BP 159/73; PULSE 117; RESP 20; TEMP 37.8; O2SAT 96
--- NOTE | 2024-09-25 05:02 | PC.NURSE ---
Assumed care of this patient at 19:00. Pt arrived earlier this evening prior to rewriter assuming care, admitted to med-surg. Pt is seen this admission for a UTI in the setting of a recent cystoscopy with right ureteral stenting on 09/13. Pt reports some urge , otherwise denies burning or other issues. Voids clear yellow urine in the bathroom. Pt is on IV abx and has a urology consult ordered with orders for NPO at midnight 09/25 pending plan after consult. A&Ox4. Pt noted to be febrile 103.0 po and tachycardic 124 HR on evening vitals, BP and respiratory status stable, breathing even and unlabored without distress. Covering Dr. Jackson was made aware of these findings and no tele orders a present, orders in place for 650mg prn tylenol. MD advised continue with administration of this dose of tylenol, otherwise no further orders. Ice packs were also applied to the bilateral axilla. +Effect, pt temp <100.4 on reassessments. Pt denied chills, chest pain, or palpitations. +radial and dp pulses, +cms. -edema. 02:48: Grill Chef and covering Dr. Jackson received tigertext from lab reporting one set of BCx back preliminarily positive for gram negative rods in the aerobic bottle. No new orders advised.
[2024-09-25 06:28] LABS: Hematocrit 35.7 % (37.0-47.0); Hemoglobin 11.7 g/dl (12.0-16.0); Mean Corpuscular HGB Conc 32.8 g/dl (31.0-35.0); Mean Corpuscular Hemoglobin 29.6 pg (27.0-33.0); Mean Corpuscular Volume 90.4 fL (80.0-98.0); NRBC Abs Auto 0.000 X10*3/uL (0.0-0.012); NRBC Pct Auto 0.0 /100WBC (0.0-0.2); Platelet Count 230 X10*3/uL (160-400); Red Blood Count 3.95 X10*6/uL (4.20-5.50); White Blood Count 10.3 X10*3/uL (4.8-10.8)
[2024-09-25 06:45] LABS: Anion Gap 15 (12-20); Blood Urea Nitrogen 11 mg/dL (9-16); Calcium 9.3 mg/dL (8.4-10.2); Carbon Dioxide 22 mmol/L (22-29); Chloride 109 mmol/L (96-108); Creatinine Clr Calc Pharmacy 68.8; Estimated Glomerular Filt Rate > 60; Potassium 3.5 mmol/L (3.3-5.1); Sodium 142 mmol/L (135-145)
[2024-09-25 07:25] VITALS: BP 129/73; PULSE 94; RESP 16; TEMP 37.2; O2SAT 97
[2024-09-25] MEDS: 0.9 % Sodium Chloride Flush 3 ML SYRINGE IVFLUSH ×3 (07:41→20:47)
--- NOTE | 2024-09-25 08:26 | P.PNIM_ITS ---
Subjective Subjective Date of Service: 09/25/24 Interval History: seen in f/u UTI, bacteremia afebrile, WBC normal Physical Exam 2 Vital Signs: Vital Signs: Last Vital Signs Temp 99.0 F 09/25/24 07:25 Pulse 94 09/25/24 07:25 Resp 16 09/25/24 07:25 BP 129/73 09/25/24 07:25 Pulse Ox 97 09/25/24 07:25 O2 Del Method Room Air 09/25/24 07:25 BMI result Body Mass Index 39.6 General: AO X 3, no acute distress Resp: CTA bilateral CVS: S1,S2,RRR GI: +BS, NT, no distention Skin: No rash Neuro: motor grossly intact Psych: appropriate affect Objective Data Active Medications Acetaminophen (Acetaminophen 325 Mg Tablet) 650 mg PO Q6H PRN PRN Reason: Pain, Mild 1-3,fever,headache Last Admin: 09/25/24 03:52 Dose: 650 mg Documented By: JEET Calcium Carbonate (Calcium Carbonate 750 Mg Tab.Chew) 750 mg PO Q4H PRN PRN Reason: Heartburn Last Admin: 09/24/24 22:43 Dose: 750 mg Documented By: JEET Ceftriaxone Sodium (Ceftriaxone Sodium 1 Gm Vial) 1 gm IVPUSH Q24H [facility] Last Admin: 09/25/24 07:40 Dose: 1 gm Documented By: ZANE Enoxaparin Sodium (Enoxaparin Sodium 40 Mg/0.4 Ml Syringe) 40 mg SUBCUT Q24H [facility] Last Admin: 09/24/24 13:30 Dose: 40 mg Documented By: KAREEM Hydrochlorothiazide (Hydrochlorothiazide 12.5 Mg Tablet) 12.5 mg PO DAILY [facility]; Protocol Last Admin: 09/25/24 07:40 Dose: 12.5 mg Documented By: ZANE Magnesium Hydroxide (Milk Of Magnesia 30 Ml Oral.Susp) 30 ml PO DAILY PRN PRN Reason: Constipation Melatonin (Melatonin 3 Mg Tablet) 6 mg PO BEDTIME PRN PRN Reason: Insomnia Mirabegron (Mirabegron 25 Mg Tab.Er.24h) 25 mg PO BEDTIME [facility] Last Admin: 09/24/24 19:40 Dose: 25 mg Documented By: JEET Non-Formulary Medication (Potassium Citrate) 1,080 mg PO BID [facility] Ondansetron HCl (Ondansetron Hcl 4 Mg/2 Ml Vial) 4 mg IVPUSH Q8H PRN PRN Reason: Nausea and Vomiting Last Admin: 09/25/24 03:57 Dose: 4 mg Documented By: JEET Oxycodone HCl (Oxycodone Hcl Immed Release 5 Mg Tablet) 5 mg PO Q6H PRN PRN Reason: Pain, Severe (Pain Scale 7-10) Pyridoxine HCl (Pyridoxine Hcl (Vitamin B6) 50 Mg Tablet) 100 mg PO DAILY [facility] Last Admin: 09/25/24 08:07 Dose: Not Given Documented By: ZANE Non-Admin Reason: NPO Sodium Chloride (0.9 % Sodium Chloride Flush 3 Ml Syringe) 3 ml IVFLUSH QSHIFT [facility] Last Admin: 09/25/24 07:41 Dose: 3 ml Documented By: ZANE Vitamin D (Cholecalciferol (Vitamin D3) 25 Mcg Tablet) 25 mcg PO DAILY [facility] Last Admin: 09/25/24 08:07 Dose: Not Given Documented By: ZANE Non-Admin Reason: NPO Labs 09/25/24 06:21 09/25/24 06:21 Labs: Laboratory Results - last 24 hr 09/24/24 09/24/24 09/25/24 08:48 10:48 06:21 MCV 90.4 MCH 29.6 MCHC 32.8 RDW 12.8 Plt Count 230 MPV 9.6 Absolute Nucleated RBC 0.000 Nucleated RBC % (auto) 0.0 Anion Gap 15 Estim Creat Clear Calc 68.8 Estimated GFR > 60 Random Glucose 134 H Calcium 9.3 Urine Color Yellow Urine Appearance Clear Urine pH 7.5 Ur Specific [place] 1.010 Urine Protein 30 (1+) H Urine Glucose (UA) Negative Urine Ketones Negative Urine Blood Large (3+) H Urine Nitrite Positive H Ur Leukocyte Esterase Large (3+) H Urine RBC >20 H Urine WBC >50 H Ur Squamous Epith Cells 0-2 Urine Bacteria None Seen Hyaline Casts 0-2 Influenza Type A (PCR) NEGATIVE Influenza Type B (PCR) NEGATIVE RSV RNA Qual (PCR) NEGATIVE SARS-CoV-2 RNA (RT-PCR) NEGATIVE Microbiology Microbiology Results: Microbiology 07/19/25 08:09 Blood Culture - Preliminary Blood - Venous Prelim: GNR Gram Stain only Assessment and Plan (1) UTI (urinary tract infection): Status: Acute (2) Gram negative sepsis: Status: Acute Plan Pt is a 59-year-old female with a PMH significant for?nephrolithiasis who presents to the ED with?fever, chills, headache, nausea, vomiting, and right- sided lower abdominal pain since Thursday. Pt also notes has dysuria and polyuria. Recently had right stent placed on 09/13 for nephrolithiasis by urology. Pt is admitted to the hospital for treatment and further evaluation of acute UTI with sepsis. Acute UTI with gram negative sree bacteremia and sepsis UA+, pt with fever, chills, N/V, polyuria, dysuria times 24 hours Blood culture + GNR, no sensitivity S/p right ureteral stenting on 09/13 CTA of abd/pelvis negative for acute abdomen or pyelonephritis Previous cultures grew E coli Meets sepsis criteria with fever and tachycardia but no severe features; no hypotension, lactic acid WNL Will treat with ceftriaxone, started 09/24/2024 Urology consult Follow urine cultures Full Code Quality Stroke Does the patient have a stroke diagnosis?: No VTE Prior VTE?: No VTE Risk Level:: Medical - moderate - high VTE Device Contraindication: Treatment Not Indicated VTE Drug Contraindication: N/A - Med Ordered
--- NOTE | 2024-09-25 08:56 | MHC.CM.PN ---
PT REPORTS SHE LIVES WITH HER DAUGHTER AND HER DAUGHTERS FATHER SHE IS INDEPENDENT WITH CARE, HAD NO DME AND NO SERVICES COPY OF HCP REQUESTED, SHE REPORTS HER DAUGHTER IS HER AGENT PCP: [facility] DCP: HOME VIA PRIVATE TRANSPORT
[2024-09-25 15:25] VITALS: BP 143/68; PULSE 107; RESP 18; TEMP 36.9; O2SAT 97
[2024-09-25 19:28] VITALS: BP 135/71; PULSE 100; RESP 18; TEMP 36.8; O2SAT 98
[2024-09-26] VITALS: RESP 18
[2024-09-26 00:35] VITALS: BP 122/56; PULSE 100; RESP 18; TEMP 36.7; O2SAT 97
[2024-09-26 03:33] VITALS: BP 130/65; PULSE 89; RESP 20; TEMP 36.4; O2SAT 98
[2024-09-26 07:29] VITALS: BP 119/93; PULSE 84; RESP 16; TEMP 36; O2SAT 95
[2024-09-26] MEDS: 0.9 % Sodium Chloride Flush 3 ML SYRINGE IVFLUSH ×3 (08:11→20:27)
--- NOTE | 2024-09-26 09:00 | PM.UROCN ---
History of Present Illness Consult details Consult date: 09/26/24 Narrative: 59-year-old female presented with generalized body ache, fever, chills, suprapubic pain, pain with urination that radiates toward the right flank area, feeling nauseous with no vomiting, S/p right ureteroscopy laser lithotripsy, right ureteric stent placed on 09/13/24. CTAP, bilateral renal calculi, no hydronephrosis, proximal stent in proximal ureter. Pt receiving IV ABX, clinically improved. Plan remove right ureteral stent Review of Systems Review of Systems: per [facility] Past Medical History Medical History Kidney stone Breast density Surgical History Surgical History Hx of cystoscopy H/O lithotripsy Social History Social History Household Members: Family and Children Housing: House Are you a primary director of patient care to a significant other at home: No Do you presently have visiting nurse or other home services: No Alcohol intake: never Patient Tobacco Use Status: Never used Tobacco e-Cigarette/Vaping Use: Never Used Second Hand Smoke Exposure: No service: No Meds Allergies Allergy/AdvReac Type Severity Reaction Status Date / Time No Known Allergies Allergy Verified 09/24/24 07:20 Active Medications: Current Medications Acetaminophen (Acetaminophen 325 Mg Tablet) 650 mg PO Q6H PRN PRN Reason: Pain, Mild 1-3,fever,headache Last Admin: 09/25/24 03:52 Dose: 650 mg Calcium Carbonate (Calcium Carbonate 750 Mg Tab.Chew) 750 mg PO Q4H PRN PRN Reason: Heartburn Last Admin: 09/25/24 23:50 Dose: 750 mg Ceftriaxone Sodium (Ceftriaxone Sodium 1 Gm Vial) 1 gm IVPUSH Q24H [facility] Last Admin: 09/26/24 08:11 Dose: 1 gm Enoxaparin Sodium (Enoxaparin Sodium 40 Mg/0.4 Ml Syringe) 40 mg SUBCUT Q24H [facility] Last Admin: 09/25/24 12:44 Dose: 40 mg Hydrochlorothiazide (Hydrochlorothiazide 12.5 Mg Tablet) 12.5 mg PO DAILY [facility]; Protocol Last Admin: 09/26/24 08:11 Dose: 12.5 mg Magnesium Hydroxide (Milk Of Magnesia 30 Ml Oral.Susp) 30 ml PO DAILY PRN PRN Reason: Constipation Melatonin (Melatonin 3 Mg Tablet) 6 mg PO BEDTIME PRN PRN Reason: Insomnia Mirabegron (Mirabegron 25 Mg Tab.Er.24h) 25 mg PO BEDTIME [facility] Last Admin: 09/25/24 20:47 Dose: 25 mg Non-Formulary Medication (Potassium Citrate) 1,080 mg PO BID [facility] Ondansetron HCl (Ondansetron Hcl 4 Mg/2 Ml Vial) 4 mg IVPUSH Q8H PRN PRN Reason: Nausea and Vomiting Last Admin: 09/25/24 03:57 Dose: 4 mg Oxycodone HCl (Oxycodone Hcl Immed Release 5 Mg Tablet) 5 mg PO Q6H PRN PRN Reason: Pain, Severe (Pain Scale 7-10) Pyridoxine HCl (Pyridoxine Hcl (Vitamin B6) 50 Mg Tablet) 100 mg PO DAILY [facility] Last Admin: 09/26/24 08:11 Dose: 100 mg Sodium Chloride (0.9 % Sodium Chloride Flush 3 Ml Syringe) 3 ml IVFLUSH QSHIFT [facility] Last Admin: 09/26/24 08:11 Dose: 3 ml Vitamin D (Cholecalciferol (Vitamin D3) 25 Mcg Tablet) 25 mcg PO DAILY [facility] Last Admin: 09/26/24 08:11 Dose: 25 mcg Home Medications ?Medication ?Instructions ?Recorded ?Confirmed ?Last Taken ?Type cholecalciferol (vitamin D3) 25 25 mcg PO DAILY 04/28/24 09/24/24 Unknown History mcg (1,000 unit) tablet pyridoxine (vitamin B6) 100 mg 100 mg PO DAILY 05/06/24 09/24/24 Unknown History tablet oxycodone 5 mg tablet 5 mg PO Q6-8H PRN pain 09/24/24 09/24/24 09/23/24 History phenazopyridine 200 mg tablet 200 mg PO BID bladder spasms/pain 09/24/24 09/24/24 Unknown History (Pyridium) with urination Physical Exam Vital Signs: Vital Signs: Last Vital Signs Temp 96.8 F 09/26/24 07:29 Pulse 84 09/26/24 07:29 Resp 16 09/26/24 07:29 BP 119/93 H 09/26/24 07:29 Pulse Ox 95 09/26/24 07:29 O2 Del Method Room Air 09/26/24 07:29 BMI result Body Mass Index 39.6 Results Labs 09/25/24 06:21 09/25/24 06:21 Labs: Urine 09/24/24 Range/Units 10:48 Urine Color Yellow Urine Appearance Clear Urine pH 7.5 (5.0-9.0) Ur Specific [place] 1.010 (1.005-1.025) Urine Protein 30 (1+) H (Neg-Trace) mg/dL Urine Glucose (UA) Negative (Negative) mg/dL All other labs normal. Assessment and Plan (1) Bilateral kidney stones: Status: Acute (2) Ureteral stent present: Status: Acute (3) UTI (urinary tract infection): Status: Acute Plan Patient improved with IV Abx's, cystoscopy, remove ureteral stent Procedures Date of Service Date of Service: 09/27/24
--- NOTE | 2024-09-26 11:00 | P.PNIM_ITS ---
Subjective Subjective Date of Service: 09/26/24 Interval History: seen in f/u UTI, bacteremia afebrile, WBC normal. Blood culture sensitivity still pending Physical Exam 2 Vital Signs: Vital Signs: Last Vital Signs Temp 96.8 F 09/26/24 07:29 Pulse 84 09/26/24 07:29 Resp 16 09/26/24 07:29 BP 119/93 H 09/26/24 07:29 Pulse Ox 95 09/26/24 07:29 O2 Del Method Room Air 09/26/24 07:29 BMI result Body Mass Index 39.6 General: AO X 3, no acute distress Resp: CTA bilateral CVS: S1,S2,RRR GI: +BS, NT, no distention Skin: No rash Neuro: motor grossly intact Psych: appropriate affect Objective Data Active Medications Acetaminophen (Acetaminophen 325 Mg Tablet) 650 mg PO Q6H PRN PRN Reason: Pain, Mild 1-3,fever,headache Last Admin: 09/25/24 03:52 Dose: 650 mg Documented By: JEET Calcium Carbonate (Calcium Carbonate 750 Mg Tab.Chew) 750 mg PO Q4H PRN PRN Reason: Heartburn Last Admin: 09/25/24 23:50 Dose: 750 mg Documented By: JAIRON Ceftriaxone Sodium (Ceftriaxone Sodium 1 Gm Vial) 1 gm IVPUSH Q24H [facility] Last Admin: 09/26/24 08:11 Dose: 1 gm Documented By: ROSE Enoxaparin Sodium (Enoxaparin Sodium 40 Mg/0.4 Ml Syringe) 40 mg SUBCUT Q24H [facility] Last Admin: 09/25/24 12:44 Dose: 40 mg Documented By: ZANE Hydrochlorothiazide (Hydrochlorothiazide 12.5 Mg Tablet) 12.5 mg PO DAILY [facility]; Protocol Last Admin: 09/26/24 08:11 Dose: 12.5 mg Documented By: ROSE Magnesium Hydroxide (Milk Of Magnesia 30 Ml Oral.Susp) 30 ml PO DAILY PRN PRN Reason: Constipation Melatonin (Melatonin 3 Mg Tablet) 6 mg PO BEDTIME PRN PRN Reason: Insomnia Mirabegron (Mirabegron 25 Mg Tab.Er.24h) 25 mg PO BEDTIME [facility] Last Admin: 09/25/24 20:47 Dose: 25 mg Documented By: HO.SEXK Non-Formulary Medication (Potassium Citrate) 1,080 mg PO BID [facility] Ondansetron HCl (Ondansetron Hcl 4 Mg/2 Ml Vial) 4 mg IVPUSH Q8H PRN PRN Reason: Nausea and Vomiting Last Admin: 09/25/24 03:57 Dose: 4 mg Documented By: JEET Oxycodone HCl (Oxycodone Hcl Immed Release 5 Mg Tablet) 5 mg PO Q6H PRN PRN Reason: Pain, Severe (Pain Scale 7-10) Pyridoxine HCl (Pyridoxine Hcl (Vitamin B6) 50 Mg Tablet) 100 mg PO DAILY [facility] Last Admin: 09/26/24 08:11 Dose: 100 mg Documented By: ROSE Sodium Chloride (0.9 % Sodium Chloride Flush 3 Ml Syringe) 3 ml IVFLUSH QSHIFT [facility] Last Admin: 09/26/24 08:11 Dose: 3 ml Documented By: ROSE Vitamin D (Cholecalciferol (Vitamin D3) 25 Mcg Tablet) 25 mcg PO DAILY [facility] Last Admin: 09/26/24 08:11 Dose: 25 mcg Documented By: ROSE Labs 09/25/24 06:21 09/25/24 06:21 Labs: Laboratory Results - last 24 hr 09/24/24 09/24/24 09/25/24 08:48 10:48 06:21 MCV 90.4 MCH 29.6 MCHC 32.8 RDW 12.8 Plt Count 230 MPV 9.6 Absolute Nucleated RBC 0.000 Nucleated RBC % (auto) 0.0 Anion Gap 15 Estim Creat Clear Calc 68.8 Estimated GFR > 60 Random Glucose 134 H Calcium 9.3 Urine Color Yellow Urine Appearance Clear Urine pH 7.5 Ur Specific [place] 1.010 Urine Protein 30 (1+) H Urine Glucose (UA) Negative Urine Ketones Negative Urine Blood Large (3+) H Urine Nitrite Positive H Ur Leukocyte Esterase Large (3+) H Urine RBC >20 H Urine WBC >50 H Ur Squamous Epith Cells 0-2 Urine Bacteria None Seen Hyaline Casts 0-2 Influenza Type A (PCR) NEGATIVE Influenza Type B (PCR) NEGATIVE RSV RNA Qual (PCR) NEGATIVE SARS-CoV-2 RNA (RT-PCR) NEGATIVE Microbiology Microbiology Results: Microbiology 09/24/24 08:09 Blood Culture - Preliminary Blood - Venous No growth after 48 hours. 09/24/24 08:09 Blood Culture - Preliminary Blood - Venous Gram negative sree 09/24/24 Unknown Urine Culture - Final Urine clean catch - Clean Catch Midstream Assessment and Plan (1) UTI (urinary tract infection): Status: Acute (2) Gram negative sepsis: Status: Acute Plan Pt is a 59-year-old female with a PMH significant for?nephrolithiasis who presents to the ED with?fever, chills, headache, nausea, vomiting, and right- sided lower abdominal pain since Thursday. Pt also notes has dysuria and polyuria. Recently had right stent placed on 09/13 for nephrolithiasis by urology. Pt is admitted to the hospital for treatment and further evaluation of acute UTI with sepsis. Acute UTI with gram negative sree bacteremia and sepsis UA+, pt had fever, chills, N/V, polyuria, dysuria times 24 hours Blood culture + GNR, no sensitivity yet S/p right ureteral stenting on 09/13 CTA of abd/pelvis negative for acute abdomen or pyelonephritis Previous cultures grew E coli Continue Ceftriaxone, change to 2 gram Urology planning cystsocopy and stent removal tomorrow Follow urine cultures Full Code Quality Stroke Does the patient have a stroke diagnosis?: No VTE Prior VTE?: No VTE Risk Level:: Medical - moderate - high VTE Device Contraindication: Treatment Not Indicated VTE Drug Contraindication: N/A - Med Ordered
--- NOTE | 2024-09-26 11:34 | MHC.CM.PN ---
PER MD ROUNDS PATIENT NOT MEDICALLY CLEARED FOR DC. NO CHANGE TO DC PLAN - HOME SELD CARE. CM WILL CONTINUE TO FOLLOW.
[2024-09-26] MEDS: Milk of Magnesia 30 ML ORAL.SUSP PO (14:25)
[2024-09-26 15:50] VITALS: BP 115/56; PULSE 92; RESP 16; TEMP 36.1; O2SAT 97
[2024-09-26 19:17] VITALS: BP 118/63; PULSE 86; RESP 17; TEMP 36.7; O2SAT 96
[2024-09-27] VITALS (10 sets, daily range): BP systolic 112–156; BP diastolic 54–86; PULSE 78–93; RESP 14–18; TEMP 35.8–37.2; O2SAT 95–99
[2024-09-27] MEDS: 0.9 % Sodium Chloride Flush 3 ML SYRINGE IVFLUSH (09:51)
[2024-09-27] MEDS: Lactated Ringers 1,000 ML 100 ML IVCONT (11:28)
--- NOTE | 2024-09-27 11:43 | HO.ANESPROP2 ---
Documented by User: Yaquelin Small NP 09/26/24 14:18 HPI - Anesthesia Eval Consult details Narrative: 59 yr old female for Cystoscopy & Stent Removal. s/p cystoscopy, stent placement , [place] ETT 7 PMFSH Active Problems Active Problems: All Active Problems (Updated 09/26/24 @ 09:01 by Edgar Soto MD) Ureteral stent present (Acute) Gram negative sepsis (Acute) UTI (urinary tract infection) (Acute) Nephrocalcinosis (Acute) Ureterolithiasis (Acute) Sepsis (Acute) Pyelonephritis (Acute) Renal scarring (Acute) Bilateral kidney stones (Acute) Kidney stone (Acute) Cervical cancer screening (Acute) Obesity, morbid, BMI 40.0-49.9 (Acute) Well woman exam with routine gynecological exam (Acute) Breast density (Acute) Past Medical History Medical History Kidney stone Breast density Family History Family history of problems with anesthesia: No Surgical History Surgical History Hx of cystoscopy H/O lithotripsy History of Problems with Anesthesia: No Social History Social History Household Members: Family and Children Housing: House Are you a primary daycare provider to a significant other at home: No Do you presently have visiting nurse or other home services: No Alcohol intake: never Patient Tobacco Use Status: Never used Tobacco e-Cigarette/Vaping Use: Never Used Second Hand Smoke Exposure: No service: No Meds Allergies Allergy/AdvReac Type Severity Reaction Status Date / Time No Known Allergies Allergy Verified 09/24/24 07:20 Active Medications: Current Medications Acetaminophen (Acetaminophen 325 Mg Tablet) 650 mg PO Q6H PRN PRN Reason: Pain, Mild 1-3,fever,headache Last Admin: 09/25/24 03:52 Dose: 650 mg Calcium Carbonate (Calcium Carbonate 750 Mg Tab.Chew) 750 mg PO Q4H PRN PRN Reason: Heartburn Last Admin: 09/25/24 23:50 Dose: 750 mg Ceftriaxone Sodium (Ceftriaxone Sodium 2 Gm Vial) 2 gm IVPUSH Q24H [facility] Enoxaparin Sodium (Enoxaparin Sodium 40 Mg/0.4 Ml Syringe) 40 mg SUBCUT Q24H [facility] Last Admin: 09/25/24 12:44 Dose: 40 mg Hydrochlorothiazide (Hydrochlorothiazide 12.5 Mg Tablet) 12.5 mg PO DAILY [facility]; Protocol Last Admin: 09/26/24 08:11 Dose: 12.5 mg Magnesium Hydroxide (Milk Of Magnesia 30 Ml Oral.Susp) 30 ml PO DAILY PRN PRN Reason: Constipation Melatonin (Melatonin 3 Mg Tablet) 6 mg PO BEDTIME PRN PRN Reason: Insomnia Mirabegron (Mirabegron 25 Mg Tab.Er.24h) 25 mg PO BEDTIME [facility] Last Admin: 09/25/24 20:47 Dose: 25 mg Non-Formulary Medication (Potassium Citrate) 1,080 mg PO BID [facility] Ondansetron HCl (Ondansetron Hcl 4 Mg/2 Ml Vial) 4 mg IVPUSH Q8H PRN PRN Reason: Nausea and Vomiting Last Admin: 09/25/24 03:57 Dose: 4 mg Oxycodone HCl (Oxycodone Hcl Immed Release 5 Mg Tablet) 5 mg PO Q6H PRN PRN Reason: Pain, Severe (Pain Scale 7-10) Pyridoxine HCl (Pyridoxine Hcl (Vitamin B6) 50 Mg Tablet) 100 mg PO DAILY [facility] Last Admin: 09/26/24 08:11 Dose: 100 mg Sodium Chloride (0.9 % Sodium Chloride Flush 3 Ml Syringe) 3 ml IVFLUSH QSHIFT [facility] Last Admin: 09/26/24 08:11 Dose: 3 ml Vitamin D (Cholecalciferol (Vitamin D3) 25 Mcg Tablet) 25 mcg PO DAILY [facility] Last Admin: 09/26/24 08:11 Dose: 25 mcg Home Medications ?Medication ?Instructions ?Recorded ?Confirmed ?Last Taken ?Type cholecalciferol (vitamin D3) 25 25 mcg PO DAILY 04/28/24 09/24/24 Unknown History mcg (1,000 unit) tablet pyridoxine (vitamin B6) 100 mg 100 mg PO DAILY 05/06/24 09/24/24 Unknown History tablet oxycodone 5 mg tablet 5 mg PO Q6-8H PRN pain 09/24/24 09/24/24 09/23/24 History phenazopyridine 200 mg tablet 200 mg PO BID bladder spasms/pain 09/24/24 09/24/24 Unknown History (Pyridium) with urination Exam Height,Weight and Vital Signs: Height 5 ft 2 in Weight 98.3 kg Last Vital Signs Temp 96.8 F 09/26/24 07:29 Pulse 84 09/26/24 07:29 Resp 16 09/26/24 07:29 BP 119/93 H 09/26/24 07:29 Pulse Ox 95 09/26/24 07:29 O2 Del Method Room Air 09/26/24 07:29 Pertinent Lab Results Pertinent Lab Results: Laboratory Tests 09/24/24 09/24/24 09/24/24 07:46 08:48 10:48 WBC 12.0 H RBC 4.19 L Hgb 12.5 Hct 37.4 MCV 89.3 MCH 29.8 MCHC 33.4 RDW 12.8 Plt Count 250 MPV 9.4 Immature Gran % (Auto) 0.5 H Neut % (Auto) 82.1 H Lymph % (Auto) 9.7 L [place] % (Auto) 7.5 Eos % (Auto) 0.0 Baso % (Auto) 0.2 Lymph # (Auto) 1.2 [place] # (Auto) 0.9 Eos # (Auto) 0.0 Baso # (Auto) 0.0 Abs Immat Gran (auto) 0.06 H Absolute Neuts (auto) 9.8 H Absolute Nucleated RBC 0.000 Nucleated RBC % (auto) 0.0 Sodium 139 Potassium 3.4 Chloride 104 Carbon Dioxide 25 Anion Gap 13 BUN 10 Creatinine 1.00 Estim Creat Clear Calc 64.3 Estimated GFR 56 Random Glucose 129 H Lactic Acid 1.3 Calcium 9.3 Urine Color Yellow Urine Appearance Clear Urine pH 7.5 Ur Specific [place] 1.010 Urine Protein 30 (1+) H Urine Glucose (UA) Negative Urine Ketones Negative Urine Blood Large (3+) H Urine Nitrite Positive H Ur Leukocyte Esterase Large (3+) H Urine RBC >20 H Urine WBC >50 H Ur Squamous Epith Cells 0-2 Urine Bacteria None Seen Hyaline Casts 0-2 Influenza Type A (PCR) NEGATIVE Influenza Type B (PCR) NEGATIVE RSV RNA Qual (PCR) NEGATIVE SARS-CoV-2 RNA (RT-PCR) NEGATIVE 09/25/24 06:21 WBC 10.3 RBC 3.95 L Hgb 11.7 L Hct 35.7 L MCV 90.4 MCH 29.6 MCHC 32.8 RDW 12.8 Plt Count 230 MPV 9.6 Immature Gran % (Auto) Neut % (Auto) Lymph % (Auto) [place] % (Auto) Eos % (Auto) Baso % (Auto) Lymph # (Auto) [place] # (Auto) Eos # (Auto) Baso # (Auto) Abs Immat Gran (auto) Absolute Neuts (auto) Absolute Nucleated RBC 0.000 Nucleated RBC % (auto) 0.0 Sodium 142 Potassium 3.5 Chloride 109 H Carbon Dioxide 22 Anion Gap 15 BUN 11 Creatinine 0.94 Estim Creat Clear Calc 68.8 Estimated GFR > 60 Random Glucose 134 H Lactic Acid Calcium 9.3 Urine Color Urine Appearance Urine pH Ur Specific [place] Urine Protein Urine Glucose (UA) Urine Ketones Urine Blood Urine Nitrite Ur Leukocyte Esterase Urine RBC Urine WBC Ur Squamous Epith Cells Urine Bacteria Hyaline Casts Influenza Type A (PCR) Influenza Type B (PCR) RSV RNA Qual (PCR) SARS-CoV-2 RNA (RT-PCR) Assessment and Plan Final Anesthetic Review Family History of Problems with Anesthesia: No History of Problems with Anesthesia: No Documented by User: Marian Robles DO 09/27/24 11:45 HPI - Anesthesia Eval Consult details Narrative: 59 yr old female for Cystoscopy & Stent Removal. s/p cystoscopy, stent placement 09/14/24, [place] ETT 7 PMFSH Past Medical History Medical History Kidney stone Breast density Family History Family history of problems with anesthesia: No Surgical History Surgical History Hx of cystoscopy H/O lithotripsy History of Problems with Anesthesia: No Social History Social History Household Members: Family and Children Housing: House Are you a primary daycare provider to a significant other at home: No Do you presently have visiting nurse or other home services: No Alcohol intake: never Patient Tobacco Use Status: Never used Tobacco e-Cigarette/Vaping Use: Never Used Second Hand Smoke Exposure: No service: No Meds Allergies Allergy/AdvReac Type Severity Reaction Status Date / Time No Known Allergies Allergy Verified 09/24/24 07:20 Home Medications ?Medication ?Instructions ?Recorded ?Confirmed ?Last Taken ?Type cholecalciferol (vitamin D3) 25 25 mcg PO DAILY 04/28/24 09/24/24 Unknown History mcg (1,000 unit) tablet pyridoxine (vitamin B6) 100 mg 100 mg PO DAILY 05/06/24 09/24/24 Unknown History tablet oxycodone 5 mg tablet 5 mg PO Q6-8H PRN pain 09/24/24 09/24/24 09/23/24 History phenazopyridine 200 mg tablet 200 mg PO BID bladder spasms/pain 09/24/24 09/24/24 Unknown History (Pyridium) with urination Exam Exam Date and Time: 09/27/24 1130 Height,Weight and Vital Signs: Height 5 ft 2 in Weight 98.3 kg Last Vital Signs Temp 96.8 F 09/26/24 07:29 Pulse 84 09/26/24 07:29 Resp 16 09/26/24 07:29 BP 119/93 H 09/26/24 07:29 Pulse Ox 95 09/26/24 07:29 O2 Del Method Room Air 09/26/24 07:29 Vital Signs Temperature 101.3 F H 09/24/24 07:17 Pulse Rate 123 H 09/24/24 07:17 Respiratory Rate 18 09/24/24 07:17 Blood Pressure 141/76 H 09/24/24 07:17 Pulse Oximetry 97 09/24/24 07:17 Oxygen Delivery Method Room Air 09/24/24 07:17 Temperature 97.3 F 09/27/24 11:16 Pulse Rate 84 09/27/24 11:16 Respiratory Rate 16 09/27/24 11:16 Blood Pressure 117/63 09/27/24 11:16 Pulse Oximetry 98 09/27/24 11:16 Oxygen Delivery Method Room Air 09/27/24 11:16 Airway Mallampati Class: I TM Dist: >3cm Neck ROM: Full Denture: Upper Heart: S1S2 Lungs: CTAB Assessment and Plan Assessment Anesthesia Assessment: Anesthesia Plan Discussed and Chart Reviewed Final Anesthetic Review Family History of Problems with Anesthesia: No History of Problems with Anesthesia: No NPO: Yes ASA Class: II Final Preanesthetic Review: No Changes in Pt Med Stat, Meds/Allgs Chart Reviewed, Consent Obtained/Reviewed and Anes Risks/Benef Reviewed Patient Risk: Low Procedure Risk: Low Anesthetic Plan Anesthetic Plan: GA and Agree w/ Assess. and Plan Disposition: Standard PACU
--- NOTE | 2024-09-27 13:15 | P.OP_ITS ---
Operative Note Operative Note Date of Service: 09/27/24 Narrative: PreOperative Diagnosis:?? Right renal calculi, right ureteral stent present. Post Operative Diagnosis:?? ?Right renal calculi, right ureteral stent present. Procedure: Cystoscopy, - right stent removal Surgeon:?Dr Edgar Soto Anesthesia:? General Indications for procedure: Carolyn is a 59-year-old with history of bilateral nephrolithiasis. Status post right ureteroscopy laser lithotripsy and ureteral stent placement on 09/13/24. The patient was admitted for UTI and pyelonephritis has been on IV antibiotics. CTAP on admission right nonobstructing renal calculi present and right ureteral stent noted with proximal tip in the proximal ureter. No hydronephrosis. Procedure: After informed consent was verified the patient was brought to the operating placed on the OR table in supine position.? General Anesthesia was administered per protocol.? The patient was placed in lithotomy position, prepped and draped in the usual sterile fashion.? Safety pause time-out and side of surgery confirmed.? Antibiotics confirmed. A 22 Bengali cystoscope was inserted transurethrally, The bladder was visualized.? Both ureteric orifices were in normal position. The distal end of ureteral stent visualized. The grasping forceps were used and the stent was removed without difficulty. The bladder was emptied.? The rigid cystoscope was removed. ? Fluoroscopy was used during the procedure. The patient tolerated the procedure well and was brought to the recovery room in stable condition. Complications: None EBL: minimal (<5 mL) Drains: none
--- NOTE | 2024-09-27 13:15 | MHC.SHP ---
Pre-Procedural Eval Section A - 24 Hr Update-Section A only Date of Service: 09/27/24 The patient is an INPATIENT: Yes The patient has been examined within 24 hours of the surgical procedure. The History & Physical has been completed within 30 days and I have reviewed it.: Yes Section B - Complete if H&P > 30 days Chief Complaint: UTI, renal stones, ureteral stent present Allergies: Allergies Allergy/AdvReac Type Severity Reaction Status Date / Time No Known Allergies Allergy Verified 09/24/24 07:20 Plan Diagnosis/Plan: Unchanged I have reviewed the history and physical and performed a pertinent physical examination on my patient. No changes have occurred unless specified. Cystoscopy, remove right ureteral stent, possible retrograde. Time Spent With Patient Time: Total time managing care of this patient today ____ minutes.
--- NOTE | 2024-09-27 14:54 | PM.DS ---
DS: Providers Provider Date of Service: 09/27/24 Date of admission: 09/24/24 12:05 Date of discharge: 09/27/24 Primary care physician: Mildred Alvarez MD Consults: 09/24/24 12:42 Consult to Urology Routine Consulting Provider: [facility] Reason for consultation: UTI with sepsis, s/p stenting on 09/13 Attending physician on discharge: Emerson Sloan Discharging clinician: Emerson Sloan DS: Diagnosis Discharge Diagnosis (1) Bilateral kidney stones: Status: Acute (2) Ureteral stent present: Status: Acute (3) UTI (urinary tract infection): Status: Acute DS: Summary Hospital Course Hospital Course: HPI:59-year-old female with a PMH significant for?nephrolithiasis who presents to the ED with?fever, chills, headache, nausea, vomiting, and right-sided lower abdominal pain since Thursday. Pt also notes has dysuria and polyuria. Recently had right stent placed on 09/13 for nephrolithiasis by urology. Denies right flank or back pain. No SOB or difficulty breathing. Denies chest pain/pressure, palpitations. In the ED pt was febrile up to 101.3 and tachycardic up to 123. BP overall stable. Labs were significant for leukocytosis 12.0 and UA consistent with acute UTI. Lactic acid WNL. Renal function baseline. No significant electrolyte abnormalities. CT of abd/pelvis negative for acute abdomen or pyelonephritis. Pt was treated in the ED with acetaminophen, IVF, and ceftriaxone. Pt is admitted to the hospital for treatment and further evaluation of acute UTI with sepsis. Hospital course:59-year-old female with a PMH significant for?nephrolithiasis who presents to the ED with?fever, chills, headache, nausea, vomiting, and right-sided lower abdominal pain since Thursday. Pt also notes has dysuria and polyuria. Recently had right stent placed on 09/13 for nephrolithiasis by urology. patient admitted Acute UTI with gram negative sree bacteremia and sepsis-UA+, pt had fever, chills, N/V, polyuria, dysuria,S/p right ureteral stenting on 09/13,CTA of abd/pelvis negative for acute abdomen or pyelonephritis: Patient was started on IV ceftriaxone and urology consulted: Patient is status post stent removal. Blood culture came back E coli sensitive to ceftriaxone. Patient already received ceftriaxone for 2-3 days. plan: Complete Ceftin 500mg p.o. b.i.d. for 12 more days. Follow-up with the Urology outpatient. If any new symptoms including abdominal pain or nausea vomiting or fever or urinary complaints go to nearest emergency room for further evaluation. Above management discussed with the patient detail length she understand and in agreement with the above, time spent 40 minute, all questions answered. Staff was present during conversation. Time Attestation Total time managing care of this patient today: 40 mintues. Discharge Coordination Time (in mins): 40 min Quality: Safe Use of Opioids Does Pt have an Active Cancer Diagnosis on the Problem List?: No Quality: Stroke Does the patient have a stroke diagnosis?: No Physical Exam Exam: Exam: General: AO X 3, no acute distress Resp: CTA bilateral CVS: S1,S2,RRR GI: +BS, NT, no distention Skin: No rash Neuro: motor grossly intact Psych: appropriate affect Vital Signs: Vital Signs: Last Vital Signs Temp 96.4 F L 09/27/24 14:44 Pulse 86 09/27/24 14:44 Resp 16 09/27/24 14:44 BP 139/66 09/27/24 14:44 Pulse Ox 99 09/27/24 14:44 O2 Del Method Room Air 09/27/24 14:44 BMI result Body Mass Index 39.6 DS: Data Data Completed and Pending Completed studies during hospitalization [Text1]: Procedures Dilation of Right Ureter with Intraluminal Device, Via Natural or Artificial Opening Endoscopic (04/20/24) Extirpation of Matter from Right Ureter, Via Natural or Artificial Opening Endoscopic (04/20/24) Fluoroscopy of Right Kidney, Ureter and Bladder (04/20/24) Labs on day of discharge: Preliminary micro results at discharge 09/24/24 08:09 Blood Culture - Preliminary Blood - Venous No growth after 48 hours. Imaging Chest x-ray: Radiologist's impression: ITS Impressions Guidance Fluoroscopy 09/27/24 13:25 IMPRESSION: Fluoroscopy during procedure. Please see procedure report for additional information. Discharge Plan Discharge Anticipated Discharge Date/Time: 09/27/24 14:42 Patient Disposition: Home, Self-Care Discharge Diagnosis: ecoli bacteremia likely urinary source. Referrals: Edgar Soto MD [Physician, Urology] - 1 Week Mildred Alvarez MD [Primary Care Provider, Medical] - 1 Week Discharge Medications: New cefuroxime axetil 500 mg Tablet 500 mg PO Q12H Qty: 24 0RF Continued mirabegron [Myrbetriq] 25 mg tablet extended release 24 hr 25 mg PO BEDTIME Qty: 30 0RF phenazopyridine [Pyridium] 200 mg tablet 200 mg PO BID Rx Instructions: [place] administer with a meal oxycodone 5 mg tablet 5 mg PO Q6-8H PRN (Reason: pain) Rx Instructions: Partial Fill upon patient request. cholecalciferol (vitamin D3) 25 mcg (1,000 unit) tablet 25 mcg PO DAILY pyridoxine (vitamin B6) 100 mg tablet 100 mg PO DAILY hydrochlorothiazide 12.5 mg tablet 12.5 mg PO DAILY Qty: 90 3RF potassium citrate 10 mEq (1,080 mg) tablet extended release 1,080 mg PO BID 90 Days Qty: 180 3RF Discharge Orders: Discharge Order (Routine); Ordered 09/27/24 Ordered By: Emerson Sloan Diet: Advance to usual diet Activity on Discharge: As tolerated Stand Alone Forms: Patient Portal Discharge page Print Language: Trinidadian Care Plan Goals: ecoli bacteremia and sepsis likely sec to urinary source. Health Concerns: complete Ceftin 500 mg p.o. b.i.d. for 12 more days. If any new symptoms including abdominal pain or nausea vomiting or fever or urinary complaints go to nearest emergency room for further evaluation. Plan of Treatment: As above. Assessment: As above.
--- NOTE | 2024-09-27 15:08 | MHC.CM.PN ---
Patient medically cleared for dc home self care via private transport
== END 2024-09-27 17:17 | disposition home or self-care (01) | DRG 720 ==
LOC: HO.ED 12:08 → HO.EDOVER 12:11 → HO.S3 17:38
PROVIDERS: Student in an Organized Health Care Education/Training Program; Admitting Provider Urology; Emergency Provider Emergency Medicine; PCP Internal Medicine; Visit Provider Urology
PROC: 0TP98DZ Removal of Intraluminal Device from Ureter, Via Natural or Artificial Opening Endoscopic (ICD-10-PCS; CPT 52310; principal; 2024-09-27 12:30)
DX: A41.9 Sepsis, unspecified organism (principal); N20.0 Calculus of kidney; N39.0 Urinary tract infection, site not specified; B96.20 Unspecified Escherichia coli [E. coli] as the cause of diseases classified elsewhere; Z20.822 Contact with and (suspected) exposure to COVID-19; Z96.0 Presence of urogenital implants; Z79.899 Other long term (current) drug therapy
CPT/HCPCS: 36415; 74176; 80048; 81001; 81003; 83605; 85025; 85027; 87040; 87077; 87086; 87186; 87205; 87637; 99285; J0696; J1100; J1650; J2003; J2405; J2704; J7120; Q9967

== ENCOUNTER → 2024-09-24 08:30 | Outpatient (BNV) | payer OTHER, SELFPAY | PROVIDERS: Emergency Provider Emergency Medicine; PCP Internal Medicine; Visit Provider Radiology Vascular & Interventional Radiology | DX: N20.0 Calculus of kidney (principal) | CPT/HCPCS: 74176 ==

== ENCOUNTER → 2024-09-24 12:05 | Outpatient (BNV) | payer OTHER, SELFPAY | PROVIDERS: Admitting Provider Student in an Organized Health Care Education/Training Program; Emergency Provider Emergency Medicine; PCP Internal Medicine; Visit Provider Student in an Organized Health Care Education/Training Program | DX: N39.0 Urinary tract infection, site not specified (principal); A41.50 Gram-negative sepsis, unspecified | CPT/HCPCS: 99223; 99232; 99239 ==

== ENCOUNTER → 2024-09-24 12:05 | Outpatient (BNV) | payer OTHER, SELFPAY | PROVIDERS: Admitting Provider Student in an Organized Health Care Education/Training Program; Emergency Provider Emergency Medicine; PCP Internal Medicine; Visit Provider Urology | DX: N39.0 Urinary tract infection, site not specified (principal); N20.0 Calculus of kidney; Z96.0 Presence of urogenital implants | CPT/HCPCS: 52310; 99222 ==

== ENCOUNTER → 2024-10-31 09:30 | Outpatient (BNV) | payer OTHER, SELFPAY | PROVIDERS: Visit Provider Internal Medicine | DX: Z12.31 Encounter for screening mammogram for malignant neoplasm of breast (principal) | CPT/HCPCS: 77063; 77067 ==

== ENCOUNTER 2024-10-31 09:41 | Outpatient (REF) | payer OTHER, SELFPAY ==
--- NOTE | ~2024-10-31 | MM_ITS ---
EXAMINATION: MM SCREENING DIGITAL BREAST TOMOSYNTHESIS, BILATERAL CLINICAL INFORMATION: Screening. Asymptomatic. COMPARISON: Mammography: Comparison is made with available priors TECHNIQUE: Digital breast mammography with tomosynthesis is performed in both the craniocaudal and mediolateral oblique views along with computer-aided detection (CAD). FINDINGS: There are scattered areas of fibroglandular density (ACR BI-RADS breast composition Category b). There are no significant masses, abnormal calcifications, or other abnormalities. MM/MM tomosynthesis screening BI IMPRESSION: No mammographic evidence of malignancy. ASSESSMENT: BI-RADS BI-RADS 1 - Negative RECOMMENDATION: Routine annual mammography screening. 1 year F/U This examination should not preclude the clinical evaluation of a suspicious palpable abnormality. This patient's information was entered into a reminder system with a target due date for their next mammogram. Electronically signed by: Shalini Kulkarni DO 11/02/2024 12:22 PM EDT
== END 2024-10-31 09:42 | disposition home or self-care (01) ==
LOC: HO.MAMMO 09:41
PROVIDERS: Visit Provider Internal Medicine
DX: Z12.31 Encounter for screening mammogram for malignant neoplasm of breast (principal)
CPT/HCPCS: 77063; 77067

== ENCOUNTER 2024-11-28 12:51 | Outpatient (REF) | payer OTHER, SELFPAY ==
--- NOTE | ~2024-11-28 | XR_ITS ---
EXAMINATION: XR ABDOMEN 1 VIEW (KUB) HISTORY: E83.59 - Other disorders of calcium metabolism COMPARISON: Comparison is made with the prior examination dated 07/13/2024. FINDINGS: Two supine views of the abdomen are submitted. The bowel gas pattern is unremarkable, without evidence of mechanical obstruction. There is a moderate amount of stool throughout the colon. Multiple calcifications are again noted overlying the bilateral renal shadows measuring up to 8mm in size. There are no abnormal soft tissue masses. The bones are intact. XR/XR KUB IMPRESSION: Bilateral nephrolithiasis as described. Electronically signed by: Asa Alonso MD 11/28/2024 01:16 PM EDT
== END 2024-11-28 12:52 | disposition home or self-care (01) ==
LOC: HO.US 12:51
PROVIDERS: Visit Provider Urology
DX: E83.59 Other disorders of calcium metabolism (principal); N29 Other disorders of kidney and ureter in diseases classified elsewhere; Z96.0 Presence of urogenital implants
CPT/HCPCS: 74018; 76775

== ENCOUNTER → 2024-11-28 12:53 | Outpatient (BNV) | payer OTHER, SELFPAY | PROVIDERS: Visit Provider Radiology Diagnostic Radiology | DX: N20.2 Calculus of kidney with calculus of ureter (principal) | CPT/HCPCS: 74018; 76775 ==

== ENCOUNTER 2024-12-16 11:46 | Outpatient (AMB) | payer OTHER, SELFPAY ==
--- NOTE | 2024-12-16 11:53 | MHC.OFFVIS ---
Intake Visit Reasons: 11w/US Intake Note: Patient is present today for 11w/US 11/28 Renal US Urology Med: Myrbetriq, Pyridium, Potassium, Vitamin B6 Antibiotic Allergy: None Blood Thinner: None PVR:85ml Collections Rep Required: No Accompanied by: Self / Same As Patient Allergies No Known Allergies Allergy (Verified 12/16/24 11:53) HPI Comments Details: 12/16/2024--Carolyn is followed for nephrolithiasis and overactive bladder. She is prescribed Myrbetriq and vitamin B6. She has been referred to Nephrology who has prescribed hydrochlorothiazide 12.5 mg and potassium citrate. History of Present Illness The patient is a 59-year-old female presenting with nephrolithiasis and overactive bladder management. The patient has a history of nephrolithiasis, with multiple stones present in both kidneys as confirmed by ultrasound. The stones are located in various poles of the kidneys, with the left kidney having stones measuring 10 mm, 5 mm, and 13 mm, and the right kidney having stones measuring 9 mm and 7 mm. The patient underwent shockwave lithotripsy in September, but did not notice passing any stones, although she experienced some burning sensation. For overactive bladder, the patient is prescribed Myrbetriq. She has been referred to nephrology and is taking hydrochlorothiazide and potassium citrate as part of her management plan. Results - Renal ultrasound on 11/28/24: Multiple bilateral kidney stones, left kidney stones measuring 10 mm, 5 mm, and 13 mm, right kidney stones measuring 9 mm and 7 mm, no hydronephrosis. Plan 1. Nephrolithiasis - Plan to perform shockwave lithotripsy on the left kidney to address the stones. - Encourage increased water intake to aid in stone management. 2. Overactive Bladder - Continue current medication regimen with Myrbetriq 08/25/24-- - The patient is a 59-year-old female presenting with bilateral nephrolithiasis and medullary nephrocalcinosis. - She has a history of nephrolithiasis and has undergone prior procedures including ureteroscopy and extracorporeal shock wave lithotripsy (ESWL). - the patient was seen in the [facility] room this morning due to right-sided pain. - Although ED notes indicate right kidney pain, the patient states that she had right hip pain radiating down her leg different from the usual kidney stone pain. - the emergency department performed a CT scan revealed multiple renal stones bilaterally, with the largest stone measuring 7 x 15 mm in the lower pole of the left kidney. - The patient was discharged with naproxen and antibiotics for a possible urinary tract infection, pending urine culture results. - Urinalysis in the emergency department showed 3+ leukocytes, 0-2 red blood cells per high powered field, 21-50 white blood cells per high powered field, and 4+ bacteria. Results: - CTAP--08/25/24--Innumerable renal stones are present bilaterally with the largest in the lower pole of the left kidney measuring 7 x 15 mm. Findings suggestive of medullary nephrocalcinosis. - Urinalysis: 08/25/24--3+ leukocytes, 0-2 red blood cells per high powered field, 21-50 white blood cells per high powered field, 4+ bacteria. Discussion Notes I discussed with the patient the findings from the CT scan, which showed multiple renal stones with the largest in the left kidney. We reviewed the possibility of a urinary tract infection, and I emphasized the importance of completing the antibiotic course until further urine culture results are available. I explained the potential need for a ureteroscopy with laser lithotripsy and stent insertion to manage the stones effectively. Also reviewed Nephrology note from May, the patient was started on hydrochlorothiazide 12.5 mg. 04/28/2024--here for stent removal, the patient was seen at [facility] due to right flank pain and pyelonephritis, CT imaging at that time was notable for small bilateral renal calculi with a 6 mm right distal ureteral stone with hydronephrosis. Largest kidney stone left kidney upper pole and 9 mm. Bladder findings bookkeeping assistant with cystitis. The patient is post right ureteroscopy laser lithotripsy of distal ureteral stone with stent insertion. The patient is on antibiotics to complete treatment for pyelonephritis. Plan discussed left ESWL. Nephrology referral for nephrocalcinosis, multiple renal calculi. CTAP 04/20/24--Obstructive 6 mm distal right ureteric calculus with moderate upstream hydroureteronephrosis. Right renal parenchymal edema with delayed nephrograms and perinephric stranding. Similar-appearing parenchymal defect in the right upper and midpole kidney. Innumerable bilateral subcentimeter renal calculi largest in the left upper pole measuring 9 mm. Circumferential bladder wall thickening 12/17/23--Carolyn is a 58-year-old female who is here for follow up for kidney stones. She does get occasional kidney discomfort denies blood in the urine. She states she had lithotripsy done several years ago about 1994. She has had urinary infections in the past but denies dysuria at this time. Discussed further evaluation - 24 hr urine. 09/03/23--I have reviewed the CT abdomen and pelvis without contrast dated 08/05/2023 the images were reviewed with the patient. There are multiple bilateral kidney stones largest in the left lower pole. There is scarring of the right kidney. The patient denies renal colic or gross hematuria. I have discussed further evaluation with 24 hour urine collection. Discussed treatment management lithotripsy versus conservative monitoring of the kidneys. 05/25/23--Carolyn is a 58-year-old female who is here as a new patient evaluation for kidney stones. She states she had lithotripsy done several years ago about 1994. She does get occasional kidney discomfort denies blood in the urine. She has had urinary infections in the past but denies dysuria at this time. I reviewed with the patient kidney ultrasound that resulted January 2023. Bilateral kidney stones and right renal scarring. I have discussed further evaluation with CT abdomen/pelvis without IV contrast. I have discussed at length diet modification to decrease risk of forming more kidney stones. I have discussed low oxalate diet and specific foods to avoid including certain green leafy vegetables, chocalate, nuts, tea, beets, rubarb; low sodium, decreased use of animal protein and the importance of hydration drinking up to 2-2.5 liters of fluids and use of adding lemon to water to increase citrate in the diet. A pamphlet is also provided today. I will start her on vitamin B6 100 mg daily. Urinalysis--2+ leukocytes 1+ blood, urine culture sent. [facility] Medical History Kidney stone Breast density Surgical History Hx of cystoscopy H/O lithotripsy Social History Household Members: Family and Children Housing: House Are you a primary healthcare business analyst to a significant other at home: No Do you presently have visiting nurse or other home services: No Alcohol intake: never Patient Tobacco Use Status: Never used Tobacco e-Cigarette/Vaping Use: Never Used Second Hand Smoke Exposure: No service: No Female Reproductive History Menstrual Age of Menarche: 10 Review of Systems Const All systems reviewed & are unremarkable except as noted in HPI and below Reports no additional complaints Eyes Reports no additional complaints ENT Reports no additional complaints Card Reports no additional complaints Resp Reports no additional complaints GI Reports no additional complaints Reports as per HPI Musc Reports no additional complaints Skin/Breast Reports system reviewed and no additional complaints, except as documented Neuro Reports no additional complaints Psych Reports no additional complaints Endo Reports no additional complaints Roshan/Lymph Reports no additional complaints Aller/Immun Reports no additional complaints Office Procedures Post Void Residual Post Residual Void Post Void Residual (PVR): [id number] Void Residual by ultrasound Results Reviewed Results Reviewed: Date of Service: 11/28/24 US of kidneys Comparison: CT/REG/SR - CT ABDOMEN PELVIS WO IV CON - 09/24/24 09:35 EDT US/OK/SR - US RETROPERITONEUM - 01/14/23 14:11 EST Findings: Right kidney is normal in size, upper pole cortical defect and mildly increased echogenicity, same as before. Multiple calyceal calculi , dominant 3 are 9 mm in the upper pole, 7 mm in the midpole and lower pole. No hydronephrosis or focal lesion. No abnormal vascular flow. Left kidney is normal in size and echogenicity, 9.8 cm in length. Multiple calyceal calculi, dominant 3 calculi are 10 mm in the upper pole, 5 mm in the midpole and 13 mm in the lower pole. No hydronephrosis or focal lesion. Mild pelviectasis noted. No abnormal vascular flow. Impression: 1. Nonobstructing bilateral nephrolithiasis. 2. Stable right renal upper pole cortical defect/scar. Date of Service: 08/25/24 EXAMINATION: CT ABDOMEN AND PELVIS WITHOUT CONTRAST CLINICAL INFORMATION: Flank pain DLP: 708 mGY*cm COMPARISON: April 20, 2024 TECHNIQUE: Multidetector volumetric imaging was performed from the superior aspect of the liver through the pubic symphysis. Sagittal and coronal reformatted images were obtained on the technologist's workstation. This CT examination was performed using dose optimization techniques as appropriate, variously including the following: *Automated exposure control *Adjustment of mA and/or kV according to patient size (this includes techniques or standardized protocols for targeted exams where dose is matched to indication/reason for exam; i.e. extremities or head) *Use of iterative reconstruction technique FINDINGS: LUNG BASES: The visualized lung bases are unremarkable. LIVER, GALLBLADDER, AND BILIARY TREE: The liver is normal in size, shape, and attenuation. No focal hepatic lesion or biliary ductal dilatation is present. The gallbladder is unremarkable with no evidence of radiopaque gallstones, gallbladder wall thickening, or obvious pericholecystic inflammatory changes. PANCREAS: Unremarkable. SPLEEN: Unremarkable. ADRENAL GLANDS: Unremarkable. KIDNEYS AND URETERS: Again seen is renal cortical scarring in the lateral superior half of the right kidney. With mild multifocal cortical scarring on the left. Innumerable renal stones are present bilaterally with the largest in the lower pole of the left kidney measuring 7 x 15 mm. There may also be a component of medullary nephrocalcinosis. There is no hydronephrosis. No stones are evident in the ureters. BLADDER: Unremarkable. GASTROINTESTINAL TRACT: Small sliding hiatal hernia involves the gastric cardia. Unchanged. Pseudodiverticula are present in the descending and sigmoid colon. There are a few pseudodiverticula in the right colon as well. Gas-filled lumen is noted in the appendix. ABDOMINAL WALL: Small umbilical hernia containing adipose tissues stable. LYMPH NODES: Normal. VASCULAR: Unremarkable. PELVIC VISCERA: Unremarkable. OSSEOUS STRUCTURES: b mild degenerative disc disease is present in the spine. There is moderate facet arthropathy at L5-S1. IMPRESSION: Stones are present in both kidneys which could be related to distal renal tubular acidosis or hyperparathyroidism. There could be a component of medullary nephrocalcinosis raising question of medullary sponge kidney. No obstructing stones were evident today. There is evidence of renal cortical scarring, right greater than left, likely related to remote pyelonephritis. RAMONA: 04/20/24 STATUS: COMP REQ : [id number] RECD: 04/21/[address] [facility] [address]: Joey Harper MD COMP: 04/27/24 ENTERED: 04/21/[address]: Mildred Alvarez MD ORDERED: Kidney Stone QUERIES: Kidney Stone Source: [id number] Test Result Flag Reference Component 1 SEE NOTE Carbonate Apatite (Dahllite) 100% Stone Weight 0.055 g This test was developed and its analytical performance characteristics have been determined by [employer]. It has not been cleared or approved by FDA. This assay has been validated pursuant to the CLIA regulations and is used for clinical purposes. THIS TEST WAS PERFORMED AT: [employer] [address] [place] [address] BRENTON YE MD,PHD,CARLOS MANUEL Stone Source RIGHT URETERAL STONE Date of Service: 04/20/24 CLINICAL HISTORY: R flank pain, RUQ RLQ TTP CT abdomen and pelvis with contrast Comparison: CT/SR - CT ABDOMEN PELVIS W IV CON - 01/16/24 13:22 EST Findings: Small hiatal hernia. Hepatomegaly with steatosis. Obstructive 6 mm distal right ureteric calculus with moderate upstream hydroureteronephrosis. Right renal parenchymal edema with delayed nephrograms and perinephric stranding. Similar-appearing parenchymal defect in the right upper and midpole kidney. Innumerable bilateral subcentimeter renal calculi largest in the left upper pole measuring 9 mm. No hydronephrosis on the left. No bowel obstruction, pneumoperitoneum, or pneumatosis. Scattered colonic diverticulosis without diverticulitis or colitis. Normal appendix. Circumferential bladder wall thickening. No acute fracture. IMPRESSION: 1. Obstructive 6 mm distal right ureteric calculus with moderate upstream hydroureteronephrosis. 2. Circumferential bladder wall thickening may be related to degree of underdistention or mild cystitis. Date of Service: 08/05/23 CT ABDOMEN AND PELVIS WITHOUT CONTRAST CLINICAL INFORMATION: Renal calculus. COMPARISON: Renal ultrasound dated 01/14/2023. TECHNIQUE: Multidetector volumetric imaging was performed from the superior aspect of the liver through the pubic symphysis. Sagittal and coronal reformatted images were obtained on the technologist's workstation. This CT examination was performed using dose optimization techniques as appropriate, variously including the following: *Automated exposure control *Adjustment of mA and/or kV according to patient size (this includes techniques or standardized protocols for targeted exams where dose is matched to indication/reason for exam; i.e. extremities or head) *Use of iterative reconstruction technique DLP: 551 mGy-cm FINDINGS: LUNG BASES: The visualized lung bases are unremarkable. LIVER, GALLBLADDER, AND BILIARY TREE: The liver is normal in size, shape, and attenuation. 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 No focal hepatic lesion or biliary ductal dilatation is present. The gallbladder is unremarkable with no evidence of radiopaque gallstones, gallbladder wall thickening, or obvious pericholecystic inflammatory changes. PANCREAS: Unremarkable. SPLEEN: Unremarkable. ADRENAL GLANDS: Unremarkable. KIDNEYS AND URETERS: The kidneys are normal in size, shape, and attenuation. 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 There are extensive bilateral renal calculi. The largest on the right include a 5 mm interpolar calculus and an 8 mm lower pole calculus (5:78). The larger calculi within the left kidney are situated at the upper pole measuring 1.1 cm and at the lower pole measuring 0.9 cm (5:93 and 76). No ureteric calculus is seen, and there is no bilateral hydronephroureter. There is no significant perinephric stranding. BLADDER: Unremarkable. GASTROINTESTINAL TRACT: There is mild diverticulosis, without acute diverticulitis. No bowel obstruction, free intraperitoneal air or abscess is seen. There is no focal bowel wall thickening. The vermiform appendix appears normal. ABDOMINAL WALL: There is a small fat-containing umbilical hernia. A small fat-containing left inguinal hernia is seen. LYMPH NODES: Normal. VASCULAR: Unremarkable. PELVIC VISCERA: The uterus and adnexa are unremarkable. OSSEOUS STRUCTURES: Unremarkable. IMPRESSION: 1. There are extensive bilateral renal calculi, as detailed. No ureteric calculus or obstructive uropathy is seen bilaterally. 2. There is mild diverticulosis, without diverticulitis. 3. There are small fat-containing umbilical and left inguinal hernias. Assessment & Plan Assessment & Plan (1) Nephrocalcinosis: Code(s): E83.59 - Other disorders of calcium metabolism; N29 - Other disorders of kidney and ureter in diseases classified elsewhere Category: Medical (2) Bilateral kidney stones: Code(s): N20.0 - Calculus of kidney Category: Medical (3) OAB (overactive bladder): Code(s): N32.81 - Overactive bladder Category: Medical Plan Plan 1. Nephrolithiasis - Left ESWL 2. Overactive Bladder - Continue current medication regimen with Myrbetriq Orders: Orders AMB Post Void Residual by ultrasound 12/16/24 N20.0 - Calculus of kidney Patient Instructions: The patient had an opportunity to ask questions regarding treatment plan. The patient expressed understanding and agreement with the above treatment plan. The patient is aware they should contact our office by phone for worsening of their current condition or the appearance of new symptoms. Compliance is encouraged with any medications and followup testing that is ordered. It is a privilege to be allowed the opportunity to participate in the urologic care of your patient. If you have any questions or concerns regarding treatment for the above conditions please do not hesitate to contact me. The office telephone contact is [phone]. This note is constructed in part using voice recognition software. While every effort has been made to ensure accuracy fuel cell designer errors may have been included. Yours sincerely, Edgar Soto MD Scribe Plan - Not visible on output: Patient was informed and verbally consented to the use of an ambient scribe for clinic note documentation during this visit. Coding Level of Care Code Est Pt Level 4 (16820) Diagnoses Nephrocalcinosis E83.59; N29 Bilateral kidney stones N20.0 OAB (overactive bladder) N32.81 CPT Codes Post Residual Void - PVR CPT Code: 22601-Uers Void Residual by ultrasound ([id number])
== END 2024-12-16 12:24 | disposition home or self-care (01) ==
LOC: HO.HUSH 11:47
PROVIDERS: PCP Internal Medicine; Visit Provider Urology
DX: E83.59 Other disorders of calcium metabolism (principal); N29 Other disorders of kidney and ureter in diseases classified elsewhere; N20.0 Calculus of kidney; N32.81 Overactive bladder
CPT/HCPCS: 99214

== ENCOUNTER → 2024-12-16 11:46 | Outpatient (BNVA) | payer OTHER, SELFPAY | PROVIDERS: PCP Internal Medicine; Visit Provider Urology | DX: N20.0 Calculus of kidney (principal); N29 Other disorders of kidney and ureter in diseases classified elsewhere; N32.81 Overactive bladder | CPT/HCPCS: 51798; 99212 ==

== ENCOUNTER 2024-12-22 09:01 | Outpatient (REF) | payer OTHER, SELFPAY ==
--- OUTSIDE RECORDS SUMMARY | 2024-12-22 10:02 | XMS_ITS | Patient Health Record ---
Author Organization - [employer] Address [address] [address] [place] [address] Care Team Providers Care Sas Developer Name Role Phone Philip Khan Primary Care Provider En Bell Unavailable [phone] Allergies Allergen (clinical drug ingredient) Drug/Non Drug [...] Insured Coverage Start Date Coverage End Date [facility] Health [facility] [place] [address] [place] [address] [id number] Tam Carolyn Self - patient is the insured Medical (General) History Medical History History ICD Code Kidney stones Surgical History Surgery Date(Month/Year) Lithotripsy 2009 Colonoscopy 2018 Endoscopy 2016
[2024-12-22 10:49] LABS: Anion Gap 11 (12-20); Blood Urea Nitrogen 14 mg/dL (9-16); Calcium 9.5 mg/dL (8.4-10.2); Carbon Dioxide 28 mmol/L (22-29); Chloride 107 mmol/L (96-108); Estimated Glomerular Filt Rate 56; Potassium 4.1 mmol/L (3.3-5.1); Sodium 142 mmol/L (135-145)
== END 2024-12-22 09:02 | disposition home or self-care (01) ==
LOC: HO.LAB 09:01
PROVIDERS: PCP Internal Medicine; Visit Provider Internal Medicine Nephrology
DX: E83.59 Other disorders of calcium metabolism (principal); N29 Other disorders of kidney and ureter in diseases classified elsewhere
CPT/HCPCS: 36415; 80051; 82310; 82565; 84520

== ENCOUNTER 2024-12-22 09:32 | Emergency (ER) | payer OTHER, SELFPAY ==
[2024-12-22 09:34] VITALS: BP 142/74; PULSE 88; RESP 16; TEMP 37; O2SAT 97; BMI 38.7
== END 2024-12-22 11:04 | disposition left against medical advice (07) ==
PROVIDERS: Emergency Provider Emergency Medicine; PCP Internal Medicine
DX: R51.9 Headache, unspecified (principal); Z53.21 Procedure and treatment not carried out due to patient leaving prior to being seen by health care provider
CPT/HCPCS: 99281

== ENCOUNTER 2024-12-23 10:14 | Outpatient (AMB) | payer OTHER, SELFPAY ==
--- NOTE | 2024-12-23 10:24 | HO.NEPHOV ---
Vital Signs 12/23/24 10:27 Height 5 ft 2 in Weight 215 lb 2 oz BMI 39.3 BP 122/60 Blood Pressure Location Rt brachial Position Sitting Pulse 89 Pulse Source Pulse Oximeter Pulse Oximetry (%) 98 Oxygen Delivery Method Room Air Intake Visit Reasons: 4mon follow-up w/labs-Conf Cyber Crime Investigator Required: No Accompanied by: Self / Same As Patient Allergies No Known Allergies Allergy (Verified 12/23/24 10:27) HPI Comments Details: Carolyn is a 59-year-old female whom I saw in follow up for H/O kidney stones. She states she had lithotripsy done several years ago about 1994. She does get occasional flank discomfort but denies blood in the urine. She has had urinary infections in the past but denies dysuria. She is known to have bilateral kidney stones as well as right renal scarring. She has seen Urologist who has suggested low oxalate diet , keep low sodium diet , decreased use of animal protein and the importance of hydration drinking up to 2-2.5 liters of fluids and use of adding lemon to water to increase citrate in the diet. She recently had right flank pain and pyelonephritis. CT imaging at that time was notable for small bilateral renal calculi with a 6 mm right distal ureteral stone with hydronephrosis. Largest kidney stone was in the left kidney upper pole around 9 mm. She underwent right ureteroscopy laser lithotripsy of distal ureteral stone with stent insertion. She has no family H/O medullary nephrocalcinosis.Her renal function has been normal. She is not hypertensive or diabetic. She is trying to maintain good diet and keep up with hydration. She is due to have ESWL soon [facility] Medical History Kidney stone Breast density Surgical History Hx of cystoscopy H/O lithotripsy Social History Household Members: Family and Children Housing: House Are you a primary home health care respiratory therapist to a significant other at home: No Do you presently have visiting nurse or other home services: No Alcohol intake: never Patient Tobacco Use Status: Never used Tobacco e-Cigarette/Vaping Use: Never Used Second Hand Smoke Exposure: No service: No Female Reproductive History Menstrual Age of Menarche: 10 Review of Systems Const All systems reviewed & are unremarkable except as noted in HPI and below Physical Exam Vital Signs: Last Vital Signs Pulse 89 12/23/24 10:27 BP 122/60 12/23/24 10:27 Pulse Ox 98 12/23/24 10:27 Oxygen Delivery Method Room Air 12/23/24 10:27 BMI result Body Mass Index 39.3 Const General: comfortable and no acute distress Orientation/consciousness: patient oriented x3 HEENT Head: Yes normocephalic Mouth: Normal oral and palatal mucosa present Eyes EOM: EOMs intact bilaterally Neck Neck: Yes supple Resp Auscultation: clear to auscultation bilaterally Cardio Jugular venous distension: no JVD Rate: regular rate GI Palpation (GI): Soft to palpation Auscultation: normal bowel sounds General: Yes no CVA tenderness Back/Spine/Pelvis Back: no CVA tenderness Skin General skin exam: no rashes or lesions noted Neuro General: patient oriented x3 and moves all extremities Extrem General: Yes no pedal edema Results Reviewed Nephrology Results: Hgb, (12.0-16.0) 11.7 g/dl L 09/25/24 WBC, (4.8-10.8) 10.3 X10*3/uL 09/25/24 Plt Count, (160-400) 230 X10*3/uL 09/25/24 Sodium, (135-145) 142 mmol/L 12/22/24 Potassium, (3.3-5.1) 4.1 mmol/L 12/22/24 Chloride, (96-108) 107 mmol/L 12/22/24 Carbon Dioxide, (22-29) 28 mmol/L 12/22/24 BUN, (9-16) 14 mg/dL 12/22/24 Creatinine, (0.5-1.4) 1.00 mg/dL 12/22/24 Calcium, (8.4-10.2) 9.5 mg/dL 12/22/24 Urine Protein, (Neg-Trace) 30 (1+) mg/dL H 09/24/24 Renal US 11/28/24 Assessment & Plan Assessment & Plan (1) Nephrocalcinosis: Code(s): E83.59 - Other disorders of calcium metabolism; N29 - Other disorders of kidney and ureter in diseases classified elsewhere Category: Medical Plan Low oxalate diet , keep low sodium diet , decreased use of animal protein and reiterated the importance of hydration drinking up to 2-2.5 liters of fluids and use of adding lemon to water to increase citrate in the diet. Her 24 hour urine studies were reviewed( low citrate). I increased her HCTZ to 25 mg daily .I added K citrate at the last visit which I may increase at next visit. All questions answered. She has a low oxalate diet sheet. F/U given Orders: Orders Creatinine 3 Months E83.59 - Other disorders of calcium metabolism, N29 - Other disorders of kidney and ureter in diseases classified elsewhere Blood Urea Nitrogen 3 Months E83.59 - Other disorders of calcium metabolism, N29 - Other disorders of kidney and ureter in diseases classified elsewhere Electrolytes 3 Months E83.59 - Other disorders of calcium metabolism, N29 - Other disorders of kidney and ureter in diseases classified elsewhere Calcium 3 Months E83.59 - Other disorders of calcium metabolism, N29 - Other disorders of kidney and ureter in diseases classified elsewhere Medications: Changed From hydrochlorothiazide 12.5 mg PO DAILY 90 tabs 3RF To hydrochlorothiazide 25 mg PO DAILY 90 tabs 4RF Coding Level of Care Code Est Pt Level 4 (29518) Diagnoses Nephrocalcinosis E83.59; N29
[2024-12-23 10:27] VITALS: BP 122/60; PULSE 89; O2SAT 98; BMI 39.3
--- OUTSIDE RECORDS SUMMARY | 2024-12-23 12:07 | XMS_ITS | Patient Health Record ---
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
== END 2024-12-23 10:57 | disposition home or self-care (01) ==
LOC: HO.HKA 10:15
PROVIDERS: PCP Internal Medicine; Visit Provider Internal Medicine Nephrology
DX: E83.59 Other disorders of calcium metabolism (principal); N29 Other disorders of kidney and ureter in diseases classified elsewhere
CPT/HCPCS: 99214

== ENCOUNTER → 2024-12-23 10:14 | Outpatient (BNVA) | payer OTHER, SELFPAY | PROVIDERS: PCP Internal Medicine; Visit Provider Internal Medicine Nephrology | DX: Z71.3 Dietary counseling and surveillance (principal); E83.59 Other disorders of calcium metabolism; N29 Other disorders of kidney and ureter in diseases classified elsewhere | CPT/HCPCS: 99212 ==

== ENCOUNTER 2025-03-08 12:14 | Emergency (ER) | payer OTHER, SELFPAY ==
--- NOTE | ~2025-03-08 | US_ITS ---
EXAMINATION: US RETROPERITONEAL LIMITED (RENAL ONLY) CLINICAL INFORMATION: Flank pain.. COMPARISON: None available. TECHNIQUE: Real-time imaging of the kidneys. FINDINGS: RIGHT KIDNEY: 11.2 x 6.7 x 6.3 cm (SAG x AP x TRV). The kidney is normal in size, contour, and echogenicity. Renal cortical thickness is normal. No calculi or focal parenchymal lesions. No hydronephrosis. LEFT KIDNEY: 11.7 x 6.0 x 5.3 cm (SAG x AP x TRV). The kidney is normal in size, contour, and echogenicity. Renal cortical thickness is normal. No focal parenchymal lesions. No hydronephrosis. Clusters of calculi in the lower pole, the largest measured 3 x 4 x 3 cm. US/US renal BI IMPRESSION: 1. No hydronephrosis of either kidney. 2. Left kidney lower pole nonobstructing nephrolithiasis. Electronically signed by: Kenan Macdonald MD 03/08/2025 04:51 PM [facility]
--- NOTE | ~2025-03-08 | US_ITS ---
EXAMINATION: US ABDOMEN LIMITED CLINICAL INFORMATION: Cholecystitis evaluation, right upper quadrant abdominal pain.. COMPARISON: None available. TECHNIQUE: Real-time imaging of the gallbladder and bile ducts was performed. FINDINGS: GALLBLADDER: The gallbladder is physiologically distended without evidence of stones, sludge, polyps, wall thickening or pericholecystic fluid. Negative sonographic Hart's sign. COMMON BILE DUCT: Normal in caliber measuring 0.3. cm in diameter. FREE FLUID: None. US/US abdomen limited IMPRESSION: 1. Normal gallbladder and bile ducts. Electronically signed by: Kenan Macdonald MD 03/08/2025 04:54 PM [facility]
--- NOTE | ~2025-03-08 | CT_ITS ---
CLINICAL HISTORY: right sided abdominal pain Exam: Contrast-enhanced CT abdomen and pelvis with multiplanar reformats. Comparison: 09/24/2024. Findings: CT abdomen: Lung bases reveal trace right base atelectasis. Liver is free of focal lesions and ductal dilatation. Gallbladder appears unremarkable. Spleen appears unremarkable. Pancreas and adrenal glands appear unremarkable. Right kidney reveals subtle heterogeneous hyperenhancement in the interpolar region (7; 45 -56), concerning for pyelonephritis. There is mild uroepithelial wall thickening enhancement involving the proximal ureter and right renal pelvis, also compatible with ascending urinary tract infection on the right. Multifocal bilateral nonobstructing renal calculi are present. No ureteral stones or hydroureteronephrosis. No free intraperitoneal fluid or retroperitoneal masses or adenopathy. Abdominal aorta is normal caliber. Bowel loops reveal no abnormal wall thickening or distention. The appendix is unremarkable. Colonic diverticulosis is present, without CT evidence of diverticulitis. CT pelvis: Uterus and adnexal structures appear unremarkable. Urinary bladder is free of gross filling defects. Urinary bladder is incompletely distended, limiting evaluation for wall thickening. No pelvic masses, fluid or adenopathy. Osseous structures reveal no destructive osseous lesions. Impression: 1. Evidence of ascending urinary tract infection on the right with right-sided pyelonephritis. Consider follow-up CT (following treatment of pyelonephritis and resolution of the symptoms, to exclude much less likely possibility of infiltrating right renal lesion. This document has been electronically signed by: Jim Franz MD on 03/08/2025 18:58:14
[2025-03-08 12:42] VITALS: BP 167/76; PULSE 104; RESP 16; TEMP 37.6; O2SAT 99; BMI 38.2
--- NOTE | 2025-03-08 12:43 | ED.ABDPAIN ---
HPI - Abdominal Pain General Chief Complaint: Abdominal Pain Stated Complaint: kidney stones? fever Time Seen by Provider: 03/08/25 16:10 Source: patient Mode of arrival: ambulatory Limitations: no limitations History of Present Illness ED Provider: Dr. Bowers HPI narrative: 60-year-old female history of nephrolithiasis, obesity, UTI, presented hospital today for evaluation of right-sided flank pain. Patient stated this has been going on for a couple of days now. Patient is also complaining about nausea and vomiting associated with it describes this is a colicky abdominal pain. She does complain some symptoms of dysuria. No signs of hematuria. Related Data Home Medications ?Medication ?Instructions ?Recorded ?Confirmed cholecalciferol (vitamin D3) 25 25 mcg PO DAILY 04/28/24 09/24/24 mcg (1,000 unit) tablet Previous Rx's ?Medication ?Instructions ?Recorded potassium citrate 10 mEq (1,080 1,080 mg PO BID 90 days #180 tabs 08/26/24 mg) tablet,extended release hydrochlorothiazide 25 mg tablet 25 mg PO DAILY #90 tabs 12/23/24 pyridoxine (vitamin B6) 100 mg 100 mg PO DAILY #90 tabs 12/26/24 tablet cefpodoxime 200 mg tablet 200 mg PO BID 10 days #20 tabs 03/08/25 cyclobenzaprine 5 mg tablet 5 mg PO TID PRN muscle spasm #20 03/08/25 tabs ondansetron 4 mg disintegrating 4 mg PO Q8H PRN nausea and 03/08/25 tablet vomiting #14 tabs Allergies Allergy/AdvReac Type Severity Reaction Status Date / Time No Known Allergies Allergy Verified 03/08/25 12:43 Review of Systems Review of Systems Pertinent review of systems as mentioned in HPI. All other system otherwise negative. REPLACED BY [facility] Past Medical History REPLACED BY [facility] Narrative: Medical history as mentioned in HPI Medical History Kidney stone Breast density Surgical History Hx of cystoscopy H/O lithotripsy Social History Social History Household Members: Family and Children Housing: House Are you a primary health care attorney to a significant other at home: No Do you presently have visiting nurse or other home services: No Alcohol intake: never Patient Tobacco Use Status: Never used Tobacco Smoked in Last 30 Days: No e-Cigarette/Vaping Use: Never Used Second Hand Smoke Exposure: No Use of substances other than those prescribed or required for medical reasons: No Advance Directives: No Advance Directives Information Provided: Yes Patient : No service: No Physical Exam ED Exam Exam: General: Pleasant, no distress, interacting appropriately Head: Normacephalic, atraumatic ENT: oral mucosa moist, neck supple, no tracheal deviation Cardiovascular: regular rate, regular rhythm, no murmurs, rubbing, gallops Respiratory: CTAB, no wheeze, rales, rhonchi Gastrointestinal: Soft, non distended, right upper quadrant tenderness on palpation, positive Hart's sign, no CVA tenderness on exam Neurological: Awake and alert, no facial droop noted Skin: Warm and dry Psychiatric: Appropriate mood and thoughts Vital Signs: Vital Signs - 24 hr 03/08/25 12:42 03/08/25 16:09 03/08/25 18:34 Temperature 99.6 F 99.1 F Pulse Rate 104 H 100 114 H Respiratory Rate 16 14 20 Blood Pressure 167/76 H 149/66 H 159/78 H Pulse Oximetry 99 100 95 Oxygen Delivery Method Room Air Room Air 03/08/25 20:19 Temperature 99.1 F Pulse Rate 110 H Respiratory Rate 29 H Blood Pressure 134/61 Pulse Oximetry 97 Oxygen Delivery Method Room Air BMI result Body Mass Index 38.2 Course Course Course Narrative: This is a Rapid Medical Exam performed in triage by Yaquelin Mckee PA-C. Full HPI, ROS and PE to be performed by primary ED provider. 60-year-old female with a past medical history of renal stones, pyelo, presenting to the ED c/o right flank pain radiating to right lower quadrant x 2 days w/assoc N & V. Reports subjective fever yesterday. Admits symptoms feel similar to prior stones PE: NAD, nontoxic appearing, low-grade temp 99.6 degrees, mild RLQ tenderness Plan: labs, UA Medical Decision Making Medical Decision Making MDM Narrative: 60-year-old female presented hospital today for couple of days of right flank pain. History of nephrolithiasis in the past On exam patient does have positive Hart's sign right upper quadrant tenderness. Patient does have elevated bilirubin as well. We will obtain ultrasound of the gallbladder. We will also obtain ultrasound of her renal system to assess for any signs of hydronephrosis. UA will be obtained for the patient. IV fluid and IV Zofran be given for her symptoms. Patient stated her pain is controlled at this time. Ultrasound shows normal gallbladder no hydronephrosis. Low suspicion for kidney stone. CT imaging was obtained patient does have signs of right-sided pyelonephritis. UA does show signs of UTI. Patient will be given a dose IV ceftriaxone. The patient was tachycardic here. A couple of bolus IV fluid was obtained. Heart rate has improved to 100. Patient appear to be stable with no acute distress no sign of leukocytosis. I do not think patient meets SIRS criteria. Patient will be discharged with a cefpodoxime to take for antibiotic for pyelonephritis. Differential Diagnosis Differential Diagnoses: The differential diagnosis associated with the presentation includes Cholecystitis, cholelithiasis, biliary colic, renal stone, UTI Lab Data MDM Lab Attestation statement: I reviewed the patient's lab results. 03/08/25 13:05 03/08/25 13:05 Labs: Lab Results 03/08/25 03/08/25 03/08/25 Range/Units 12:54 13:05 17:41 WBC 8.4 (4.8-10.8) X10*3/uL RBC 4.81 D (4.20-5.50) X10*6/uL Hgb 13.6 (12.0-16.0) g/dl Hct 42.7 (37.0-47.0) % MCV 88.8 (80.0-98.0) fL MCH 28.3 (27.0-33.0) pg MCHC 31.9 (31.0-35.0) g/dl RDW 13.6 (11.0-16.0) % Plt Count 234 (160-400) X10*3/uL MPV 9.5 (9.4-12.3) fL Immature Gran % (Auto) 0.4 (0.0-0.4) % Neut % (Auto) 80.4 H (45-73) % Lymph % (Auto) 12.0 L (20-40) % [place] % (Auto) 6.8 (2-11) % Eos % (Auto) 0.0 (0-4) % Baso % (Auto) 0.4 (0-2) % Lymph # (Auto) 1.0 L (1.2-4.9) X10*3/uL [place] # (Auto) 0.6 (0.1-1.2) X10*3/uL Eos # (Auto) 0.0 (0.0-0.4) X10*3/uL Baso # (Auto) 0.0 (0.0-0.2) X10*3/uL Abs Immat Gran (auto) 0.03 (0.00-0.03) X10*3/uL Absolute Neuts (auto) 6.8 (2.0-8.3) x10*3/uL Absolute Nucleated RBC 0.000 (0.0-0.012) X10*3/uL Nucleated RBC % (auto) 0.0 (0.0-0.2) /100WBC Sodium 138 (135-145) mmol/L Potassium 3.3 (3.3-5.1) mmol/L Chloride 105 (96-108) mmol/L Carbon Dioxide 25 (22-29) mmol/L Anion Gap 11 L (12-20) BUN 13 (9-16) mg/dL Creatinine 1.22 (0.5-1.4) mg/dL Estim Creat Clear Calc 51.3 Estimated GFR 45 Random Glucose 106 (60-115) mg/dL Calcium 9.7 (8.4-10.2) mg/dL Magnesium 2.1 (1.6-2.6) mg/dL Total Bilirubin 2.1 H (0.0-1.0) mg/dL Direct Bilirubin 0.9 H (0.0-0.5) mg/dL AST 31 (5-31) U/L ALT 29 (0-31) U/L Alkaline Phosphatase 106 (39-117) U/L Total Protein 8.4 H (6.5-8.0) g/dL Albumin 4.4 (3.5-5.0) g/dL Lipase 10 (8-78) U/L Urine Color Yellow Urine Appearance Cloudy Urine pH 8.0 (5.0-9.0) Ur Specific [place] 1.010 (1.005-1.025) Urine Protein 100 (2+) H (Neg-Trace) mg/dL Urine Glucose (UA) Negative (Negative) mg/dL Urine Ketones 15 (Negative) mg/dL Urine Blood Large (3+) H (Negative) Urine Nitrite Positive H (Negative) Ur Leukocyte Esterase Large (3+) H (Negative) Urine RBC >20 H (0-2) /HPF Urine WBC >50 H (0-5) /HPF Ur Squamous Epith Cells >20 (0-2) /HPF Urine Bacteria 4+ (None Seen) Hyaline Casts 0-2 (0-2) /LPF Influenza Type A (PCR) NEGATIVE (Negative) Influenza Type B (PCR) NEGATIVE (Negative) RSV RNA Qual (PCR) NEGATIVE (Negative) SARS-CoV-2 RNA (RT-PCR) NEGATIVE (Negative) Independent Interpretation I performed an independent interpretation of an: Ultrasound and CT Scan Radiology Impression Discussion of test interpretation with radiology: I have reviewed the radiologist's reading. Medications Administered Generic Name Dose Route Start Last Admin Trade Name Freq PRN Reason Stop Dose Admin Lactated Ringer's 1,000 mls @ 999 mls/hr 03/08/25 20:30 03/08/25 20:23 Lr IV 03/08/25 21:30 999 mls/hr .Q1H1M KONRAD Administration Discontinued Medications Generic Name Dose Route Start Last Admin Trade Name Freq PRN Reason Stop Dose Admin Acetaminophen 975 mg 03/08/25 18:51 03/08/25 19:02 Acetaminophen 325 Mg Tablet PO 03/08/25 18:52 975 mg ONCE ONE Administration Sodium Chloride 1,000 mls @ 999 mls/hr 03/08/25 16:30 03/08/25 17:54 Ns IV 03/08/25 17:30 Infused .Q1H1M KONRAD Infusion Ceftriaxone Sodium 2 gm/ 50 mls @ 100 mls/hr 03/08/25 18:05 03/08/25 19:06 Sodium Chloride IV 03/08/25 18:34 Infused ONCE ONE Infusion Lactated Ringer's 1,000 mls @ 999 mls/hr 03/08/25 19:00 03/08/25 20:09 Lr IV 03/08/25 20:00 Infused .Q1H1M KONRAD Infusion Iohexol 100 ml 03/08/25 17:47 03/08/25 17:49 Iohexol 350 Mg/Ml 100 Ml Infus..Btl IV 03/08/25 17:48 85 ml ONCE ONE Administration Ondansetron HCl 4 mg 03/08/25 16:24 03/08/25 16:59 Ondansetron Hcl 4 Mg/2 Ml Vial IVPUSH 03/08/25 16:25 4 mg ONCE ONE Administration Discharge Plan Discharge Clinical Impression: Pyelonephritis Patient Disposition: Home, Self-Care Instructions: Kidney Infection (ED) Prescriptions: New cefpodoxime 200 mg tablet 200 mg PO BID 10 Days Qty: 20 0RF Rx Instructions: must administer with a meal/food cyclobenzaprine 5 mg tablet 5 mg PO TID PRN (Reason: muscle spasm) Qty: 20 0RF ondansetron 4 mg tablet,disintegrating 4 mg PO Q8H PRN (Reason: nausea and vomiting) Qty: 14 0RF No Action pyridoxine (vitamin B6) 100 mg tablet 100 mg PO DAILY Qty: 90 0RF cholecalciferol (vitamin D3) 25 mcg (1,000 unit) tablet 25 mcg PO DAILY potassium citrate 10 mEq (1,080 mg) tablet extended release 1,080 mg PO BID 90 Days Qty: 180 3RF hydrochlorothiazide 25 mg tablet 25 mg PO DAILY Qty: 90 4RF Print Language: [place] Islander
[2025-03-08 13:14] LABS: MANUAL DIFF FLAG NO
[2025-03-08 13:17] LABS: Hematocrit 42.7 % (37.0-47.0); Hemoglobin 13.6 g/dl (12.0-16.0); Imm Gran Abs Auto 0.03 X10*3/uL (0.00-0.03); Imm Gran Pct Auto 0.4 % (0.0-0.4); Lymphocytes Absolute Auto 1.0 X10*3/uL (1.2-4.9); Mean Corpuscular HGB Conc 31.9 g/dl (31.0-35.0); Mean Corpuscular Hemoglobin 28.3 pg (27.0-33.0); Mean Corpuscular Volume 88.8 fL (80.0-98.0); NRBC Abs Auto 0.000 X10*3/uL (0.0-0.012); NRBC Pct Auto 0.0 /100WBC (0.0-0.2); Platelet Count 234 X10*3/uL (160-400); Red Blood Count 4.81 X10*6/uL (4.20-5.50); White Blood Count 8.4 X10*3/uL (4.8-10.8)
[2025-03-08 13:30] LABS: Alanine Aminotransferase 29 U/L (0-31); Albumin Level 4.4 g/dL (3.5-5.0); Alkaline Phosphatase 106 U/L (39-117); Anion Gap 11 (12-20); Aspartate Amino Transferase 31 U/L (5-31); Blood Urea Nitrogen 13 mg/dL (9-16); Calcium 9.7 mg/dL (8.4-10.2); Carbon Dioxide 25 mmol/L (22-29); Chloride 105 mmol/L (96-108); Creatinine Clr Calc Pharmacy 51.3; Estimated Glomerular Filt Rate 45; Lipase 10 U/L (8-78); Magnesium 2.1 mg/dL (1.6-2.6); Potassium 3.3 mmol/L (3.3-5.1); Sodium 138 mmol/L (135-145); Total Protein 8.4 g/dL (6.5-8.0)
[2025-03-08 14:09] LABS: Resp Syncy Virus RNA Qual PCR NEGATIVE (Negative); SARS COV2 PCR INHOUSE NEGATIVE (Negative)
--- OUTSIDE RECORDS SUMMARY | 2025-03-08 15:48 | XMS_ITS | Patient Health Record ---
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
[2025-03-08 16:09] VITALS: BP 149/66; PULSE 100; RESP 14; TEMP 37.3; O2SAT 100
[2025-03-08 17:47] LABS: Appearance Urine Cloudy; Glucose Urine UA Negative (Negative); PH 8.0 (5.0-9.0); Specific Gravity - Urine 1.010 (1.005-1.025); UMIC TRIGGER UACC YES
[2025-03-08] MEDS: iohexoL 350 MG/ML 100 ML INFUS..BTL IV (17:49)
[2025-03-08 17:50] LABS: UACC Culture Trigger YES
[2025-03-08 18:34] VITALS: BP 159/78; PULSE 114; RESP 20; O2SAT 95
[2025-03-08] MEDS: Lactated Ringers 1,000 ML 999 ML IV ×2 (19:03→20:23)
--- NOTE | 2025-03-08 19:11 | PC.NURSE ---
Addendum entered by Radha Dave RN 03/08/25 19:16: placed on telemetry. Original Note: assumed care of pt, pt ambulated to bathroom withsteadyb gate. Medicated per MAY. placed on monito
[2025-03-08 20:19] VITALS: BP 134/61; PULSE 110; RESP 29; TEMP 37.3; O2SAT 97
[2025-03-08 22:03] VITALS: BP 137/74; PULSE 110; RESP 29; TEMP 37.3; O2SAT 97
== END 2025-03-08 22:12 | disposition home or self-care (01) ==
PROVIDERS: Physician Assistant; Emergency Provider Student in an Organized Health Care Education/Training Program; PCP Internal Medicine
DX: N12 Tubulo-interstitial nephritis, not specified as acute or chronic (principal); E66.9 Obesity, unspecified; Z68.38 Body mass index [BMI] 38.0-38.9, adult; Z87.442 Personal history of urinary calculi; Z79.899 Other long term (current) drug therapy; Z03.818 Encounter for observation for suspected exposure to other biological agents ruled out
CPT/HCPCS: 36415; 74177; 76705; 76775; 80048; 80076; 81001; 83690; 83735; 85025; 87086; 87088; 87186; 87637; 96361; 96365; 96375; 99285; J0696; J2405; J7120; Q9967

== ENCOUNTER → 2025-03-08 16:23 | Outpatient (BNV) | payer OTHER, SELFPAY | PROVIDERS: Emergency Provider Student in an Organized Health Care Education/Training Program; PCP Internal Medicine; Visit Provider Radiology Diagnostic Radiology | DX: N12 Tubulo-interstitial nephritis, not specified as acute or chronic (principal); N39.0 Urinary tract infection, site not specified; N20.0 Calculus of kidney; R10.11 Right upper quadrant pain | CPT/HCPCS: 74177; 76705; 76775 ==